=== PATIENT | female | born 1990 | race Two or more races ===

== ENCOUNTER 2023-03-20 16:17 | Outpatient (REF) | payer MEDICAID, SELFPAY ==
[2023-03-20 19:48] LABS: Influenza A PCR NEGATIVE (Negative); Influenza B PCR NEGATIVE (Negative); Resp Syncy Virus RNA Qual PCR NEGATIVE (Negative); SARS COV2 PCR INHOUSE NEGATIVE (Negative)
== END 2023-03-20 16:18 | disposition home or self-care (01) ==
LOC: HO.CHCLNP 16:17
PROVIDERS: Visit Provider Family Medicine
DX: J06.9 Acute upper respiratory infection, unspecified (principal); Z20.822 Contact with and (suspected) exposure to COVID-19
CPT/HCPCS: 0241U

== ENCOUNTER 2023-08-26 11:55 | Outpatient (REF) | payer MEDICAID, SELFPAY ==
[2023-08-26 14:49] LABS: MANUAL DIFF FLAG NO
[2023-08-26 15:16] LABS: Basophils Absolute Auto 0.1 X10*3/uL (0.0-0.2); Basophils Percent Auto 0.8 % (0-2); Eosinophils Absolute Auto 0.4 X10*3/uL (0.0-0.4); Eosinophils Percent Auto 2.9 % (0-4); Hematocrit 35.2 % (37.0-47.0); Imm Gran Abs Auto 0.06 X10*3/uL (0.00-0.03); Imm Gran Pct Auto 0.5 % (0.0-0.4); Lymphocytes Absolute Auto 3.9 X10*3/uL (1.2-4.9); Lymphocytes Percent Auto 33.2 % (20-40); Mean Corpuscular HGB Conc 31.3 g/dl (31.0-35.0); Mean Corpuscular Hemoglobin 22.9 pg (27.0-33.0); Mean Corpuscular Volume 73.2 fL (80.0-98.0); Mean Platelet Volume 10.9 fL (9.4-12.3); Monocytes Absolute Auto 0.7 X10*3/uL (0.1-1.2); Monocytes Percent Auto 5.9 % (2-11); Neutrophils Absolute Auto 6.7 x10*3/uL (2.0-8.3); Neutrophils Percent Auto 56.7 % (45-73); Platelet Count 485 X10*3/uL (160-400); Red Blood Count 4.81 X10*6/uL (4.20-5.50); Red Cell Distribution Width 16.4 % (11.0-16.0); White Blood Count 11.9 X10*3/uL (4.8-10.8)
[2023-08-26 17:57] LABS: Alanine Aminotransferase 14 U/L (0-31); Alkaline Phosphatase 84 U/L (39-117); Anion Gap 12 (12-20); Aspartate Amino Transferase 14 U/L (5-31); Bilirubin Total 0.2 mg/dL (0.0-1.0); Blood Urea Nitrogen 11 mg/dL (9-16); Calcium 9.5 mg/dL (8.4-10.2); Carbon Dioxide 23 mmol/L (22-29); Chloride 105 mmol/L (96-108); Estimated Glomerular Filt Rate > 60; Glucose Random 65 mg/dL (60-115); Potassium 3.7 mmol/L (3.3-5.1); Sodium 136 mmol/L (135-145); Total Protein 7.9 g/dL (6.5-8.0)
[2023-08-27 04:23] LABS: HIV AB/AG Nonreactive (Nonreactive); HIV Num 1 0.07 S/CO (0.00-0.99); ~HepC Num1 0.11 S/CO (0.00-0.79); ~Hepatitis C Antibody Nonreactive (Nonreactive)
== END 2023-08-26 11:56 | disposition home or self-care (01) ==
LOC: HO.CHCLDS 11:55
PROVIDERS: Visit Provider Internal Medicine
DX: Z00.00 Encounter for general adult medical examination without abnormal findings (principal); Z11.4 Encounter for screening for human immunodeficiency virus [HIV]; T78.40XD Allergy, unspecified, subsequent encounter; D50.9 Iron deficiency anemia, unspecified
CPT/HCPCS: 36415; 80053; 84443; 85025; 86803; 87389

== ENCOUNTER 2023-08-28 10:30 | Outpatient (REF) | payer MEDICAID, SELFPAY ==
--- NOTE | ~2023-08-28 | US_ITS ---
EXAMINATION: MM DIAGNOSTIC DIGITAL BREAST TOMOSYNTHESIS, BILATERAL US BREAST LIMITED, BILATERAL MAMMOGRAPHY: CLINICAL INFORMATION: 33-year-old female complaining of bilateral breast tenderness upper outer quadrants of both breasts. Baseline exam. COMPARISON: Mammography: None. Baseline exam. TECHNIQUE: Digital breast tomosynthesis is performed in both the craniocaudal and mediolateral oblique views along with computer-aided detection (CAD). Synthesized 2D images are generated from the tomosynthesis. In addition to standard views, bilateral full-field mediolateral 3-D views were obtained. FINDINGS: The breasts are heterogeneously dense, which may obscure small masses (ACR BI-RADS breast composition Category c). LEFT BREAST: -In the mid lateral aspect of the left breast, 3:00 axis, there is a 5 mm oval mass with a small fatty notch consistent with benign intramammary lymph node. -In the 2:00 axis left breast, posterior one third, there is an additional 5 mm oval lobular mass with a small fatty notch consistent with benign intramammary lymph node. -Otherwise, there are are no suspicious masses, suspicious grouped calcifications, or areas of architectural distortion. No skin or axillary abnormalities. No mammographic abnormality is present in the upper outer quadrant to correlate with pain/tenderness. RIGHT BREAST: -The 9:00 axis of the right breast, middle one third, there is a 5 mm lobular oval mass with small fatty notch consistent with benign intramammary lymph node. -Otherwise, there are no suspicious masses, suspicious grouped calcifications, or areas of architectural distortion. No skin or axillary abnormalities. No mammographic abnormality present in the upper outer quadrant to correlate with pain/tenderness. ULTRASOUND: CLINICAL INFORMATION: As above. COMPARISON: None TECHNIQUE: Targeted sonographic evaluation bilateral breasts upper-outer quadrants was performed using a high frequency linear transducer. Selected archived documentation. FINDINGS: RIGHT BREAST: There is a mixture of fatty and fibroglandular tissue. No suspicious mass is seen. There is no pathologic acoustic shadowing. There is a small normal appearing intramammary lymph node at the 9:00 axis, 4 cm from the nipple, measuring 5 mm. Normal small fatty hilum with normal cortex. LEFT BREAST: There is a mixture of fatty and fibroglandular tissue. No suspicious mass is seen. There is no pathologic acoustic shadowing. No cystic abnormalities. The 2 small normal lymph nodes seen in the lateral left breast are not well seen on ultrasonography. No ultrasonographic abnormality is present in either breast upper outer quadrant to correlate with pain/tenderness. US/US breast BI limited mamm only IMPRESSION: There are no findings suspicious for malignancy. There are benign findings bilaterally. There is no mammographic or ultrasonographic correlate to the regions of breast tenderness, upper outer quadrants. Recommend clinical management. Otherwise, recommend resuming routine annual screening mammography at age 40. OVERALL ASSESSMENT: Mammography: BI-RADS 2 - Benign Findings Ultrasound: BI-RADS 2 - Benign Findings RECOMMENDATION: 1. Patient should be managed based on the clinical impression. This patient's information was entered into a reminder system with a target due date for their next mammogram.
== END 2023-08-28 10:31 | disposition home or self-care (01) ==
LOC: HO.MAMMO 10:30
PROVIDERS: PCP Internal Medicine; Visit Provider Advanced Practice Midwife
DX: N64.4 Mastodynia (principal)
CPT/HCPCS: 76642; 77062; 77066

== ENCOUNTER → 2023-08-28 11:00 | Outpatient (BNV) | payer MEDICAID, SELFPAY | PROVIDERS: PCP Internal Medicine; Visit Provider Radiology Diagnostic Radiology | DX: N64.4 Mastodynia (principal) | CPT/HCPCS: 76642; 77062; 77066 ==

== ENCOUNTER 2024-05-05 10:01 | Outpatient (REF) | payer MEDICAID, SELFPAY ==
[2024-05-05 14:56] LABS: MANUAL DIFF FLAG NO
[2024-05-05 15:01] LABS: Basophils Absolute Auto 0.1 X10*3/uL (0.0-0.2); Basophils Percent Auto 0.9 % (0-2); Eosinophils Absolute Auto 0.2 X10*3/uL (0.0-0.4); Eosinophils Percent Auto 2.5 % (0-4); Hematocrit 37.5 % (37.0-47.0); Hemoglobin 12.1 g/dl (12.0-16.0); Imm Gran Abs Auto 0.03 X10*3/uL (0.00-0.03); Imm Gran Pct Auto 0.4 % (0.0-0.4); Lymphocytes Absolute Auto 2.8 X10*3/uL (1.2-4.9); Lymphocytes Percent Auto 32.5 % (20-40); Mean Corpuscular HGB Conc 32.3 g/dl (31.0-35.0); Mean Corpuscular Hemoglobin 24.4 pg (27.0-33.0); Mean Corpuscular Volume 75.6 fL (80.0-98.0); Mean Platelet Volume 11.1 fL (9.4-12.3); Monocytes Absolute Auto 0.5 X10*3/uL (0.1-1.2); Monocytes Percent Auto 5.8 % (2-11); Neutrophils Percent Auto 57.9 % (45-73); Platelet Count 429 X10*3/uL (160-400); Red Blood Count 4.96 X10*6/uL (4.20-5.50); Red Cell Distribution Width 15.9 % (11.0-16.0); White Blood Count 8.6 X10*3/uL (4.8-10.8)
== END 2024-05-05 10:02 | disposition home or self-care (01) ==
LOC: HO.CHCLDS 10:01
PROVIDERS: Visit Provider Internal Medicine
DX: L70.0 Acne vulgaris (principal); M62.838 Other muscle spasm
CPT/HCPCS: 36415; 85025

== ENCOUNTER 2024-07-04 10:02 | Outpatient (REF) | payer MEDICAID, SELFPAY ==
[2024-07-04 18:37] LABS: CT PCR NOT DETECTED (Not Detect.); NG PCR NOT DETECTED (Not Detect.)
[2024-07-05 08:40] LABS: Syphilis Screen Nonreactive (Nonreactive)
[2024-07-05 09:00] LABS: HBS Num1 2.02 mIU/mL (0-7.99); HBsAGNum1 0.44 S/CO (0.00-0.99); HIV AB/AG Nonreactive (Nonreactive); HIV Num 1 0.05 S/CO (0.00-0.99); Hepatitis B Core Antibody Nonreactive (Nonreactive); Hepatitis B Surface Antigen Negative (Negative); ~Hepatitis B Surface Antibody NONREACTIVE (Nonreactive)
== END 2024-07-04 10:03 | disposition home or self-care (01) ==
LOC: HO.HHCL 10:02
PROVIDERS: Visit Provider Advanced Practice Midwife
DX: Z11.3 Encounter for screening for infections with a predominantly sexual mode of transmission (principal)
CPT/HCPCS: 36415; 86704; 86706; 86780; 87340; 87389; 87491; 87591

== ENCOUNTER 2024-07-22 09:57 | Outpatient (REF) | payer MEDICAID, SELFPAY | END 2024-07-22 09:58 | disposition home or self-care (01) | LOC: HO.CHCLDS 09:57 | PROVIDERS: Visit Provider Advanced Practice Midwife | DX: R30.0 Dysuria (principal); B96.20 Unspecified Escherichia coli [E. coli] as the cause of diseases classified elsewhere | CPT/HCPCS: 87086; 87088; 87186 ==

== ENCOUNTER 2024-08-31 11:58 | Outpatient (REF) | payer MEDICAID, SELFPAY ==
[2024-08-31 14:03] LABS: MANUAL DIFF FLAG NO
[2024-08-31 14:07] LABS: Basophils Absolute Auto 0.1 X10*3/uL (0.0-0.2); Eosinophils Absolute Auto 0.2 X10*3/uL (0.0-0.4); Hematocrit 37.2 % (37.0-47.0); Hemoglobin 11.8 g/dl (12.0-16.0); Imm Gran Abs Auto 0.04 X10*3/uL (0.00-0.03); Imm Gran Pct Auto 0.4 % (0.0-0.4); Lymphocytes Absolute Auto 3.2 X10*3/uL (1.2-4.9); Lymphocytes Percent Auto 33.8 % (20-40); Mean Corpuscular HGB Conc 31.7 g/dl (31.0-35.0); Mean Corpuscular Volume 75.6 fL (80.0-98.0); Mean Platelet Volume 11.3 fL (9.4-12.3); Monocytes Absolute Auto 0.7 X10*3/uL (0.1-1.2); Monocytes Percent Auto 7.2 % (2-11); Neutrophils Absolute Auto 5.3 x10*3/uL (2.0-8.3); Neutrophils Percent Auto 55.6 % (45-73); Platelet Count 467 X10*3/uL (160-400); Red Blood Count 4.92 X10*6/uL (4.20-5.50); White Blood Count 9.6 X10*3/uL (4.8-10.8)
--- OUTSIDE RECORDS SUMMARY | 2024-08-31 14:26 | XMS_ITS | Encounter Summary ---
Author Organization [employer] Address [address] [place] [address] 7 [place] [address] Care Team Providers Care Guide Domestic Tour Name Role Phone Blaise Ordonez MD Primary Care Provider [phone] Reason for Visit * Reason Comments Annual Exam Encounter Details Date Type Department Care Team ([facility] st Contact Info) Description 08/31/2024 10:45 AM EST Office Visit [facility] MED & PEDS [address], [place] [id number] Blaise Ordonez MD [address] [place] [address] Annual physical exam (Primary Dx); Moderate persistent asthma without complication; Vitamin D deficiency; Chronic migraine without aura with status migrainosus, not intractable; Mood disorder (CMS/HCC) Social History Tobacco Use Types Packs/Day Years Used Date Smoking Tobacco: Never Passive Smoke Exposure: Never Smokeless Tobacco: Never Alcohol Use Standard Drinks/Week Comments Never 0 (1 standard drink = 0.6 oz pur e alcohol) Alcohol Answer Date Recorded How often do you have a drink containing alcohol ? 1 08/31/2024 How many drinks containing a lcohol do you have on a typical day when you are drinking? 0 08/31/2024 How often do you have six or more drinks on one occasion? 1 08/31/2024 Depression Answer Date Recorded Patient Health Questionnaire-9 Score 11 08/31/2024 Patient Health Questionnaire-9 Score 11 08/31/2024 Last PHQ-9: Questionnaire Data Not on file 0 08/31/2024 Housing Stability Answer Date Recorded What is your housing situation today? I have urban sing 08/31/[address] you li ve. Do you have problems with any of the following? None of the above 08/31/2024 Food Insecurity Answer Date Recorded Within the past 12 months, y ou worried that your food would run out before you got money to buy more: Never True 08/31/2024 Within the past 12 months,th e food you bought just didn't last and you didn't have enough money to get more: Never True 10/2024 Transportation Answer Date Recorded In the past 12 months, has l ack of transportation kept you from medical appts, meetings, work or from getting things needed for daily living? No 08/31/2024 Utilities Answer Date Recorded In the past 12 months, has t he electric, gas, oil or water company threatened to shut off services in your home? No 08/31/2024 Depression Answer Date Recorded Patient Health Questionnaire-2 Score 1 08/31/2024 Internet Access Answer Date Recorded Internet Access Q1 Yes 08/31/2024 Internet Access Q2 Not on file 08/31/2024 Comments No Sex and Gender Information Value Date Recorded Sex Assigned at Female 04/28/2022 10:35 AM EDT Legal Sex Female 10:35 AM EDT Gender Identity Choose not to disclose 10:35 AM EDT Sexual Orientation Choose not to disclose 2021 10:35 AM EDT documented as of this encounter Last Filed Vital Signs Vital Sign Reading Time Taken Comments Blood Pressure 111/71 08/31/2024 10:51 AM EST Pulse 102 08/31/2024 10:51 AM EST Temperature 36.7 ??C (98 ??F) 08/31/2024 10:51 AM EST Respiratory Rate 20 08/31/2024 10:51 AM EST Oxygen Saturation 98% 08/31/2024 10:51 AM EST Inhaled Oxygen Concentration - - Weight 77.1 kg (170 lb) 08/31/2024 10:51 AM EST Height 149.9 cm (4' 11 ) 08/31/2024 10:51 AM EST Body Mass Index 34.34 08/31/2024 10:51 AM EST documented in this encounter Progress Notes * Blaise Ordonez MD - 08/31/2024 10:45 AM EST Subjective Patient ID: Cynthia Nuno is a 34 y.o. adult who presents for Annual Exam. HPI Patient is here for her annual physical exam. She feels overall stable. Her asthma is controlled. Her concern today is about not feeling safe at home with her partner still living with her and her 3 children at home. She was tearful during the encounter. Denies suicidal ideation or homicidal ideation. Patient Active Problem List Diagnosis Allergic reaction Hospital discharge follow-up Migraine Moderate persistent asthma Vitamin D deficiency Upper respiratory tract infection Procreative management Pain of both breasts LLQ pain Mild persistent asthma with allergic rhinitis Current Outpatient Medications on File Prior to Visit Medication Sig Dispense Refill acetaminophen (Tylenol) 325 MG tablet Take 1 tablet by mouth every 6 (six) hours. albuterol (2.5 MG/3ML) 0.083% nebulizer solution Take 3 mL (2.5 mg) by nebulization every 6 (six) hours if needed for wheezing. 75 mL 0 albuterol (ProAir HFA) 108 (90 Base) MCG/ACT inhaler Inhale 2 puffs every 6 (six) hours. 18 g 0 ARIPiprazole (Abilify) 5 MG tablet take 1 tablet by oral route every day at bed time. B Complex Vitamins (RA B-Complex with B-12) tablet Take 1 tablet by mouth. benzoyl peroxide (PanOxyl Foaming Wash) 10 % external wash Apply topically 2 times daily. 142 g 1 Botox 200 units injection buPROPion XL (Wellbutrin XL) 150 MG 24 hr tablet Take 150 mg by mouth in the morning. busPIRone (Buspar) 15 MG tablet TAKE 1 TABLET BY MOUTH THREE TIMES DAILY 30 MINUTES BEFORE MEALS FOR ANXIETY citalopram (CeleXA) 40 MG tablet Take 40 mg by mouth in the morning. clonazePAM (KlonoPIN) 0.5 MG tablet Take by mouth 2 times daily. EPINEPHrine (Epipen) 0.3 MG/0.3ML injection syringe INJECT 0.3 ML DIRECTED FOR ALLERGIC REACTIONAND THEN CALL 911 2 each 3 ferrous sulfate (Fe Tabs) 325 (65 Fe) MG EC tablet Take 1 tablet (325 mg) by mouth with breakfast, with lunch, and with evening meal. Do not crush, chew, or split. 90 tablet 0 ferrous sulfate 325 (65 Fe) MG EC tablet Take 1 tab orally twice a day 60 tablet 2 montelukast (Singulair) 10 MG tablet TAKE 1 TABLET BY MOUTH DAILY IN THE EVENING Omeprazole 20 MG tablet delayed-release Take 20 mg by mouth in the morning. 14 tablet 0 [] oxyCODONE (Roxicodone) 5 MG immediate release tablet Take 1 tablet (5 mg) by mouth every 6 (six) hours if needed for severe pain for up to 5 days. 15 tablet 0 predniSONE (Deltasone) 20 MG tablet rizatriptan (Maxalt) 10 MG tablet Sodium Fluoride 1.1 % cream [place] teeth for 2 minutes, morning and night. Spit, do not rinse. Do not eat or drink anything for 30 minutes following use. 112 g 3 Symbicort 160-4.5 MCG/ACT inhaler Inhale 2 puffs 2 times daily. tiZANidine (Zanaflex) 2 MG tablet Take 1 tablet (2 mg) by mouth every 6 (six) hours if needed for muscle spasms for up to 10 days. 30 tablet 0 No current facility-administered medications on file prior to visit. Allergies Allergen Reactions Ethanol Anaphylaxis Ibuprofen Hives Quetiapine Other As per patient Seizures, head aches loss of memorie. Shellfish-Derived Products Topiramate Caused itching both hands and feet Review of Systems Constitutional: Negative for appetite change, chills and diaphoresis. Eyes: Negative for photophobia, pain and redness. Respiratory: Negative for cough and choking. Gastrointestinal: Negative for blood in stool and constipation. Musculoskeletal: Negative for back pain, gait problem and joint swelling. Objective BP 111/71 (BP Location: Left arm, Patient Position: Sitting, BP Cuff Size: Adult) Pulse 102 Temp 98 ??F (36.7 ??C) (Oral) Resp 20 Ht 4' 11 (1.499 m) Wt 170 lb (77.1 kg) SpO2 98% BMI 34.34 kg/m?? Physical Exam Constitutional: General: Cynthia is not in acute distress. Appearance: Normal appearance. Cynthia is not ill-appearing, toxic-appearing or diaphoretic. HENT: Head: Normocephalic. Cardiovascular: Rate and Rhythm: Normal rate. Pulmonary: Effort: Pulmonary effort is normal. No respiratory distress. Breath sounds: No stridor. Abdominal: Palpations: Abdomen is soft. Neurological: General: No focal deficit present. Mental Status: Cynhtia is alert. Psychiatric: Mood and Affect: Affect is tearful. Assessment/Plan Diagnoses and all orders for this visit: Annual physical exam Comments: Normal cardiopulmonary exam Patient advised to maintain a healthy and balanced diet. Orders: - XR Wrist 1-2 Views Right; Future Moderate persistent asthma without complication Comments: Stable Follow-up with pulmonology. Vitamin D deficiency Comments: Continue with vitamin D supplementation. Chronic migraine without aura with status migrainosus, not intractable Comments: Follow-up with neurology as scheduled. Mood disorder (CMS/HCC) Comments: [facility] called. Patient will receive emotional support today. Follow-up with the psychiatrist as scheduled. documented in this encounter Miscellaneous Notes * Addendum Note - Blaise Ordonez MD - 08/31/2024 10:45 AM ESTAddended by: BLAISE ORDONEZ on: 08/31/2024 12:03 PM Modules accepted: Orders documented in this encounter Plan of Treatment Upcoming Encounters Date Type Department Care Team (Late st Contact Info) Description 09/14/2024 11:00 AM EDT Office Visit [facility] ADULT D[facility] [address] [place] [address] Reinier Ordonez Scheduled Orders Name Type Priority Associated Diagnoses Orde r Schedule XR Wrist 1-2 Views Right Imaging Routine Annual physical exam Expected: 08/31/2024, Expires: 08/31/2025 documented as of this encounter Procedures Procedure Name Priority Date/Time Associated Diagnosis Comments CBC WITH AUTO DIFFERENTIAL Routine 08/31/2024 11:59 AM EST Mood disorder (CMS/HCC) documented in this encounter Results * (ABNORMAL) CBC auto differential (08/31/2024 11:59 AM EST) White Blood Count 9.6 4.8 - 10.8 X10*3/uL [facility] Red Blood Count 4.92 4.20 - 5.50 X10*6/uL [facility] Hemoglobin 11.8(L) 12.0 - 16.0 g/dl [facility] Hematocrit 37.2 37.0 - 47.0 % [facility] Mean Corpuscular Volume 75.6(L) 80.0 - 98.0 fL [facility] Mean Corpuscular Hemoglobin 24.0(L) 27.0 - 33.0 pg [facility] Mean Corpuscular HGB Conc 31.7 31.0 - 35.0 g/dl [facility] Red Cell Distribution Width 15.0 11.0 - 16.0 % [facility] Platelet Count 467(H) 160 - 400 X10*3/uL [facility] Mean Platelet Volume 11.3 9.4 - 12.3 fL [facility] Neutrophils Percent Auto 55.6 45 - 73 % [facility] Imm Gran Pct Auto 0.4 0.0 - 0.4 % [facility] Lymphocytes Percent Auto 33.8 20 - 40 % [facility] Monocytes Percent Auto 7.2 2 - 11 % [facility] Eosinophils Percent Auto 2.0 0 - 4 % [facility] Basophils Percent Auto 1.0 0 - 2 % [facility] NRBC Pct Auto 0.0 0.0 - 0.2 /100WBC [facility] Neutrophils Absolute Auto 5.3 2.0 - 8.3 x10*3/uL [facility] Imm Gran Abs Auto 0.04(H) 0.00 - 0.03 X10*3/uL [facility] Lymphocytes Absolute Auto 3.2 1.2 - 4.9 X10*3/uL [facility] Monocytes Absolute Auto 0.7 0.1 - 1.2 X10*3/uL [facility] Eosinophils Absolute Auto 0.2 0.0 - 0.4 X10*3/uL [facility] Basophils Absolute Auto 0.1 0.0 - 0.2 X10*3/uL [facility] NRBC Abs Auto 0.000 0.0 - 0.012 X10*3/uL [facility] Blood Venous blood specimen / Unknown 08/31/2024 11:59 AM EST 08/31/2024 1:59 PM EST Blaise Ordonez MD LAB BLOOD ORDERABLES Final Result [facility] [address] [place] [address] [phone] documented in this encounter Visit Diagnoses Diagnosis Annual physical exam- Primary Routine general medical examination at a health care facility Moderate persistent asthma without complication Vitamin D deficiency Chronic migraine without aura with status migrainosus, not intractable Mood disorder (CMS/HCC) Unspecified episodic mood disorder documented in this encounter Additional Health Concerns Assessment Noted Time PHQ-9 Depression Total Score: 11 025 11:29 AM EST documented as of this encounter Care Teams Guide Domestic Tour Relationship Specialty Start Date End Date Blaise Ordonez MD [address] [place] [id number] PCP - General Internal Medicine 01/25/19 Shahab Ricci After School TeacherAutomatic Profile Shaper Operator 07/12/24 documented as of this encounter
--- OUTSIDE RECORDS SUMMARY | 2024-08-31 14:26 | XMS_ITS | Encounter Summary ---
Author Organization [employer] Address [address] [place] [address] Care Team Providers Care Torpedo Worker Name Role Phone Rodney Ordonez MD Primary Care Provider [phone]- [phone] Reason for Visit * Reason Onset Date Comments ER Follow-up 12/29/2023 Encounter Details Date Type Department Care Team ([facility] st Contact Info) Description 12/29/2023 Telephone [facility] MEDICINE [address] [place] [address] Rodney Ordonez MD [address] [place] [address] ER Follow-up Social History Tobacco Use Types Packs/Day Years Used Date Smoking Tobacco: Never Passive Smoke Exposure: Never Smokeless Tobacco: Never Alcohol Use Standard Drinks/Week Comments Never 0 (1 standard drink = 0.6 oz pur e alcohol) Depression Answer Date Recorded Patient Health Questionnaire-9 Score 16 08/26/2023 Patient Health Questionnaire-9 Score 16 08/26/2023 Last PHQ-9: Questionnaire Data Not on file 0 08/26/2023 Housing Stability Answer Date Recorded What is your housing situation today? I have urban bejarano 08/19/[address] you li ve. Do you have problems with any of the following? None of the above 08/19/2023 Food Insecurity Answer Date Recorded Within the past 12 months, y ou worried that your food would run out before you got money to buy more: Never True 08/19/2023 Within the past 12 months,th e food you bought just didn't last and you didn't have enough money to get more: Never True Transportation Answer Date Recorded In the past 12 months, has l ack of transportation kept you from medical appts, meetings, work or from getting things needed for daily living? No 08/19/2023 Utilities Answer Date Recorded In the past 12 months, has t he electric, gas, oil or water company threatened to shut off services in your home? No 08/19/2023 Depression Answer Date Recorded Patient Health Questionnaire-2 Score 4 08/26/2023 Comments No Sex and Gender Information Value Date Recorded Sex Assigned at Female 04/28/2022 10:35 AM EDT Legal Sex Female 10:35 AM EDT Gender Identity Choose not to disclose 10:35 AM EDT Sexual Orientation Choose not to disclose 2021 10:35 AM EDT documented as of this encounter Miscellaneous Notes * Telephone Encounter - Wing Darren RN - 01/05/2024 9:30 AM EDT Tc to pt using [employer] Photo[employer]raving Etcher Apprentice [place], [place] [id number] for ED follow-up. Pt repports feeling better, last home BP was 123/83 on Thursday as BP home cuff is out of batteries. Pt denies any dizziness, chestpain, and blurred vision. Positive for minor headaches that don't bother pt along with some slight neck pain. Advised pt to make sure to go to appt with PCP on 01/06. Pt verbalized understanding and agreement with plan. * Telephone Encounter - Ryan Yañez - 12/29/2023 3:00 PM EDT Patient calling to report ED visit on : Date: 12/27 Hospital: [facility] Seen for: High Blood Pressure , Dizziness and migraine Patient advised will forward to team nurse for follow up documented in this encounter Plan of Treatment Upcoming Encounters Date Type Department Care Team (Late st Contact Info) Description 09/14/2024 11:00 AM EDT Office Visit [facility] ADULT DENTAL [address] [facility] [place] [address] Reinier Ordonez documented as of this encounter Visit Diagnoses Not on filedocumented in this encounter Additional Health Concerns Assessment Noted Time PHQ-9 Depression Total Score: 16 08/26/ 024 10:56 AM EST documented as of this encounter Care Teams Torpedo Worker Relationship Specialty Start Date End Date Rodney Ordonez MD [address] [facility] [place] [address] PCP - General Internal Medicine 01/25/19 Shahab Ricci Captain Waiter/WaitressVp Of Customer Experience Strategy 07/12/24 documented as of this encounter
--- OUTSIDE RECORDS SUMMARY | 2024-08-31 14:26 | XMS_ITS | Encounter Summary ---
Author Organization [employer] Address [address] [facility] 7 [place] [address] Care Team Providers Care Manager Web Name Role Phone Rodney Ordonez MD Primary Care Provider [phone]- [phone] Encounter Details Date Type Department Care Team ([facility] st Contact Info) Description 09/17/2023 Telephone [facility] MEDICINE [address] [place] [address] Rodney Ordonez MD [address] [place] [address] Social History Tobacco Use Types Packs/Day Years [...] encounter Miscellaneous Notes * Telephone Encounter - Idaila Sharma RN - 09/22/2023 5:23 PM EDT TC placed to patient via [employer] General Maintenance Helper x 2 regarding message below. Patient didn't answer. TCplaced to patient without information technology associate line. Patient answered. Explained message below in very basicSpanish, and patient still confused. Asked patient for permission to call back with information technology associate line and patient agreed. TC placed again to patient via [employer] General Maintenance Helper. Explained message above and patient states she does have extremely painful periods and wants to consider hormonal treatment or next steps. Asked for next appointment at [facility] and scheduled for 09/29/23 @ 10:30am with Ramsey Ng. Routing message to Ramsey Ng so she is aware. ----- Message from Alla Ng CNM sent at 09/22/2023 4:32 PM EDT ----- Regarding: pelvic u/s Hi - It looks like Cynthia's pelvic ultrasound came back last month but was never routed to me. Please let her know that there are some changes in her uterus that could be due to a condition called adenomyosis. This is when cells from the lining of the uterus grow into the muscle of the uterus. It can sometimes cause heavy or painful periods. I'm sorry I didn't see this until now. Sometimes we use hormonal treatments to help with periods. If she is interested in this, please schedule appt with me. Thanks! ----- Message ----- From: Alla Ng CNM Sent: 08/04/2023 9:42 AM EDT To: Alla Ng CNM; # * Telephone Encounter - Idalia Sahrma RN - 09/21/2023 3:51 PM EDT Images from the original note were not included. MD Ofe López [facility] Med [facility] Peds Nurses Caller: Unspecified (4 days ago, 11:50 AM) Rizatriptan sent to pt's pharmacy. Regarding the referral to Ophthalmology, Ms Cynthia Nuno can herself call an sprinkler fitter in the area to make her appointment herself, no referral isneeded from the office. TC placed to patient via [employer] General Maintenance Helper regarding above message. Patient states that she didn't package pick up this medication from [email or web address] because she states she is allergic to this medication. Instead, she is taking Nurtec for migraines, which was prescribed by her neurologist. She was informed about the ophthalmology referral not being necessary, and she states she will try to make an appointment with the [facility] at [facility]. Routing to PCP so he is aware. * Telephone Encounter - Kenneth Funes RN - 09/17/2023 3:27 PM EDT Please review below message. pt. Is looking for migraine medication to prescribe on file pharmacy. Also looking for referral for vision center, has blurred vision. Advised to come to walk in center in case of any pain or any new or worsening symptoms. Pt. Verbally agreed and understood. * Telephone Encounter - Yaritza Duarte - 09/17/2023 11:49 AM EDT Tc from pt requesting medication for migraine discussed with PCP on last visit and also a referral for vision. documented in this encounter Plan of Treatment Upcoming Encounters Date Type Department Care Team ([facility] st Contact Info) Description 09/14/2024 11:00 AM EDT Office Visit [facility] ADULT DENTAL [address] [place] [address] Reinier Ordonez documented as of this encounter Visit Diagnoses Not on filedocumented in this encounter Additional Health Concerns Assessment Noted Time PHQ-9 Depression Total Score: 16 08/26/ 024 10:56 AM EST documented as of this encounter Care Teams Manager Web Relationship Specialty Start Date End Date Rodney Ordonez MD [address] [place] [address] PCP - General Internal Medicine 01/25/19 Shahab Ricci Second Facing BasterCertified Legal Investigator 07/12/24 documented as of this encounter
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
--- OUTSIDE RECORDS SUMMARY | 2024-08-31 14:26 | XMS_ITS | Clinical Summary ---
Author Organization [facility] Address [address] [place] [address] Care Team Providers Care Materials Director Name Role Phone Rodney Ordonez MD Primary Care Provider [phone] Surgical History Surgery Date Site/Laterality Comments TUBAL LIGATION 2013 PROCEDURE: HISTORICAL TUBAL LIGATION; COMMENT: has 3 kids CHOLECYSTECTOMY PROCEDURE: HISTORICAL CHOLECYSTECTOMY Medical History Medical History Date Comments Asthma 2004 DX:Asthma Anxiety 2016 DX:Anxiety Migraine 2018 DX:Migraine; COM MENT: botox Allergic rhinitis 06/14/2020 DX:Allergic rh initis Dyspnea on exertion 09/24/2020 DX:Dyspnea o n exertion Family History Medical History Relation Name Comments Asthma Father Other cancer Mother Relation Name Status Comments Brother Alive Father Alive Mother Alive Sister 1 Alive Sister 2 Alive Sister 3 Alive Social History Tobacco Use Types Packs/Day Years Used Date Smoking Tobacco: Never Smokeless Tobacco: Never Alcohol Use Standard Drinks/Week Comments No 0 (1 standard drink = 0.6 oz pur e alcohol) Comments Unknown Sex and Gender Information Value Date Recorded Sex Assigned at Not on file Legal Sex Female 3:09 PM EST Gender Identity Not on file Sexual Orientation Not on file Obstetrics History Plan of Treatment Health Maintenance Due Date Last Done Comments Hepatitis B Vaccines (1 of 3 - 19+ 3-dose series) 2009 Pneumococcal Vaccine: Pediat rics (0 to 5 Years) and At-Risk Patients (6 to 64 Years) (1 of 2 - PCV) 2009 Cervical Cancer Screening: P ap Smear 2011 Depression Screening 06/07/2022 HIV Screening 06/07/2022 Hepatitis C Screening 06/07/2022 Social Influencers of Health Screening 06/07/2022 COVID-19 Vaccine ( - 2023-2 5 season) 2024 Influenza Vaccine (#1) 2024 DTaP,Tdap,and Td Vaccines (2 - Td or Tdap) 09/22/2028 09/22/2018 HIB Vaccines Aged Out No longer eligi ble based on patient's age to complete this topic HPV Vaccines Aged Out No longer eligi ble based on patient's age to complete this topic Hepatitis A Vaccines Aged Out No long er eligible based on patient's age to complete this topic IPV Vaccines Aged Out No longer eligi ble based on patient's age to complete this topic MMR Vaccines Aged Out No longer eligi ble based on patient's age to complete this topic Meningococcal ACWY Vaccine Aged Out N o longer eligible based on patient's age to complete this topic Meningococcal B Vacine Aged Out No lo nger eligible based on patient's age to complete this topic RSV Immunization Patients Un lillian 20 months Aged Out No longer eligible b ased on patient's age to complete this topic Varicella Vaccines Aged Out No longer eligible based on patient's age to complete this topic Care Teams Materials Director Relationship Specialty Start Date End Date Rodney Ordonez MD [address] [place] [address] PCP - General Internal Medicine 05/08/20
--- OUTSIDE RECORDS SUMMARY | 2024-08-31 14:26 | XMS_ITS | Encounter Summary ---
Author Organization [employer] Address [address] [place] [address] 7 [place] [address] Care Team Providers Care Ceramics Technician Name Role Phone Rodney Ordonez MD Primary Care Provider [phone] Encounter Details Date Type Department Care Team ([facility] st Contact Info) Description 09/07/2023 Orders Only [facility] MED & PEDS [address], [place] [id number] Rodney Ordonez MD [address] [place] [address] H. pylori infection (Primary Dx) Social History Tobacco Use Types Packs/Day Years [...] AM EDT documented as of this encounter Plan of Treatment Upcoming Encounters Date Type Department Care Team ([facility] st Contact Info) Description 09/14/2024 11:00 AM EDT Office Visit [facility] ADULT DENTAL [address] [place] [address] Reinier Ordonez documented as of this encounter Visit Diagnoses Diagnosis H. pylori infection- Primary Helicobacter pylori (H. pylori) documented in this encounter Additional Health Concerns Assessment Noted Time PHQ-9 Depression Total Score: 16 024 10:56 AM EST documented as of this encounter Care Teams Ceramics Technician Relationship Specialty Start Date End Date Rodney Ordonez MD [address] [place] [address] PCP - General Internal Medicine 01/25/19 Shahab Ricci Wire InsulatorFrench Binding Folder 07/12/24 documented as of this encounter
--- OUTSIDE RECORDS SUMMARY | 2024-08-31 14:26 | XMS_ITS | Encounter Summary ---
Author Organization [employer] Address [address] [place] [address] Care Team Providers Care Pressing Machine Tender Name Role Phone Rodney Ordonez MD Primary Care Provider [phone] Reason for Visit * Reason Onset Date Comments Referral 09/03/2023 Encounter Details Date Type Department Care Team (Late st Contact Info) Description 09/03/2023 Telephone [facility] MEDICINE [address] [place] [address] Rodney Ordonez MD [address] [place] [address] Referral Social History Tobacco Use Types Packs/Day Years [...] encounter Miscellaneous Notes * Telephone Encounter - Camila Marcus RN - 09/04/2023 11:25 AM EST Noted. Pt to discuss further during next appt. * Telephone Encounter - Camila Marcus RN - 09/04/2023 10:04 AM EST Please review message below and advise if nutrition referral can be made for pt anemia. Pt is scheduled on the with PCP. * Telephone Encounter - Marcos Verdugo - 09/03/2023 9:15 AM EST Tc from Shahab working with [facility] calling in regards to pt requesting a referral for monorail hooker. Ptwas advised after ED visit 08/31/23 from [facility] to be seen with monorail hooker due to being diagnosed with Anemia. Please contact pt at [phone] If any questions you can contact Shahab at [phone]. documented in this encounter Plan of Treatment Upcoming Encounters Date Type Department Care Team (Late st Contact Info) Description 09/14/2024 11:00 AM EDT Office Visit [facility] ADULT DENTAL [address] [place] [address] Reinier Ordonez documented as of this encounter Visit Diagnoses Not on filedocumented in this encounter Additional Health Concerns Assessment Noted Time PHQ-9 Depression Total Score: 16 08/26/ 024 10:56 AM EST documented as of this encounter Care Teams Pressing Machine Tender Relationship Specialty Start Date End Date Rodney Ordonez MD [address] [place] [address] PCP - General Internal Medicine 01/25/19 Shahab Ricci Tapper HandInteractive Producer 07/12/24 documented as of this encounter
--- OUTSIDE RECORDS SUMMARY | 2024-08-31 14:26 | XMS_ITS | Encounter Summary ---
Author Organization [employer] Address [address] [place] [address] [place] [address] Care Team Providers Care Apartment Community Assistant Manager Name Role Phone Rodney Ordonez MD Primary Care Provider [phone] Reason for Visit * Reason Onset Date Comments Nurse Triage 04/05/2024 Encounter Details Date Type Department Care Team ([facility] st Contact Info) Description 04/05/2024 Telephone [facility] MED & PEDS [address] [place] [address] Rodney Ordonez MD [address] [place] [address] Nurse Triage Social History Tobacco Use Types Packs/Day Years [...] encounter Miscellaneous Notes * Telephone Encounter - Dorothy Rosales RN - 04/05/2024 12:11 PM EDT Triage call with [facility] Vending Mechanic [place] [id number] Pt reports a development of acne over face, cheeks, chest and back. Pt has not had this before. Pt reports itchiness that is severe at times. Pt reports white heads, black heads and red areas and they are big pimples . Pt is not applying anything to the area. Pt is texted handout regarding home care for mild acne in congolese and confirms receiving this. ASK apt with Dr. Ordonez 04/15/24 @ 345pm. Pt agrees with disposition. Insurance is verified as active prior to booking. Protocol Used: Acne (Pediatric) Protocol-Based Disposition: See in Office or Video Visit within 2 Weeks Video visit not offered Positive Triage Question: * Many chronic red lumps * All higher-acuity triage questions were negative Care Advice Discussed: * Reassurance and Education - Mild Acne (Whiteheads and Blackheads) * Benzoyl Peroxide Gel (OTC) * Antibiotic for Red Bumps * Washing the Face * Treating Red Lumps that are Painful * Pimples: How to Open Safely * Avoid Picking or Squeezing Acne * Expected Course * Reasons To Call Back - With treatment, the acne has not improved after 2 months - It looks infected - Large, red, tender bumps occur - Your teen becomes worse Acne (Romansh) handout sent to [phone] * Telephone Encounter - Kassy Smiley - 04/05/2024 11:28 AM EDT Symptom: Acne - Caller Reports Outcome: Schedule an appointment to be seen within 3 days Reason: Caller denied all higher acuity questions The caller accepted this outcome. documented in this encounter Plan of Treatment Upcoming Encounters Date Type Department Care Team (Late st Contact Info) Description 09/14/2024 11:00 AM EDT Office Visit [facility] ADULT DENTAL [address] [place] [address] Reinier Ordonez documented as of this encounter Visit Diagnoses Not on filedocumented in this encounter Additional Health Concerns Assessment Noted Time PHQ-9 Depression Total Score: 16 08/26/ 024 10:56 AM EST documented as of this encounter Care Teams Apartment Community Assistant Manager Relationship Specialty Start Date End Date Rodney Ordonez MD [address] [place] [address] PCP - General Internal Medicine 01/25/19 Shahab Ricci Director Of First ImpressionsGate Attendant 07/12/24 documented as of this encounter
--- OUTSIDE RECORDS SUMMARY | 2024-08-31 14:26 | XMS_ITS | Encounter Summary ---
Author Organization [employer] Address [address] [place] [address] 7 [place] [address] Care Team Providers Care Manifold Builder Name Role Phone Rodney Ordonez MD Primary Care Provider [phone] Encounter Details Date Type Department Care Team (Latest Contact Info) Description 08/31/2024 Travel Social History Tobacco Use Types Packs/Day Years [...] is your housing situation today? I have urbanchelo bejarano 08/31/[address] you li [...] Upcoming Encounters Date Type Department Care Team ([facility] st Contact Info) Description 09/14/2024 11:00 AM EDT Office Visit [facility] ADULT DENTAL [address] [place] [address] Reinier Ordonez documented as of this encounter Visit Diagnoses Not on filedocumented in this encounter Additional Health Concerns Assessment Noted Time PHQ-9 Depression Total Score: 11 025 11:29 AM EST documented as of this encounter Care Teams Manifold Builder Relationship Specialty Start Date End Date Rodney Ordonez MD [address] [place] [address] PCP - General Internal Medicine 01/25/19 Shahab Ricci Paper SheeterPsychology Instructor 07/12/24 documented as of this encounter
--- OUTSIDE RECORDS SUMMARY | 2024-08-31 14:26 | XMS_ITS | Encounter Summary ---
Author Organization [employer] Address [address] [facility] [address] [place] [address] Care Team Providers Care Graphic Illustrator Name Role Phone Rodney Ordonez MD Primary Care Provider [phone] Encounter Details Date Type Department Care Team ([facility] st Contact Info) Description 05/16/[address] [facility] CHC MED & PEDS [address] [place], [place] [phone] ProviderJud MD Social History Tobacco Use Types Packs/Day Years [...] Upcoming Encounters Date Type Department Care Team ([facility] st Contact Info) Description 09/14/2024 11:00 AM EDT Office Visit [facility] ADULT DENTAL [address] [place] [address] Reinier Ordonez documented as of this encounter Procedures Procedure Name Priority Date/Time Associated Diagnosis Comments HM COLONOSCOPY Routine 05/16/2024 4:17 PM EST documented in this encounter Results * Hm Colonoscopy (05/16/2024 4:17 PM EST) us Historical Provider HEALTH MAINTENANCE Final Result documented in this encounter Visit Diagnoses Not on filedocumented in this encounter Additional Health Concerns Assessment Noted Time PHQ-9 Depression Total Score: 16 024 10:56 AM EST documented as of this encounter Care Teams Graphic Illustrator Relationship Specialty Start Date End Date Rodney Ordonez MD [address] [place] [address] PCP - General Internal Medicine 01/25/19 Shahab Ricci Fitting Room AttendantHuman Resources Associate 07/12/24 documented as of this encounter
--- OUTSIDE RECORDS SUMMARY | 2024-08-31 14:26 | XMS_ITS | Encounter Summary ---
Author Organization [employer] Address [address] [place] [address] [place] [address] Care Team Providers Care Director Of Supply Chain Name Role Phone Rodney Ordonez MD Primary Care Provider [phone]- [phone] Encounter Details Date Type Department Care Team (Late Contact Info) Description 09/22/2022 Abstract [facility] CHC MED & PEDS [address] [place], [place] [phone] Rodney Ordonez MD [address] [place], [place] [phone] Social History Tobacco Use Types Packs/Day Years Used Date Smoking Tobacco: Never Passive Smoke Exposure: Never Smokeless Tobacco: Never Alcohol Use Standard Drinks/Week Comments Never 0 (1 standard drink = 0.6 oz pur e alcohol) Depression Answer Date Recorded Patient Health Questionnaire-9 Score 17 07/28/2022 Depression Answer Date Recorded Patient Health Questionnaire-2 Score 5 07/28/2022 Comments No Sex and Gender Information Value Date Recorded Sex Assigned at Female 04/28/2022 10:35 AM EDT Legal Sex Female 10:35 AM EDT Gender Identity Choose not to disclose 10:35 AM EDT Sexual Orientation Choose not to disclose 2021 10:35 AM EDT COVID-19 Exposure Response Date Recorded In the last 10 days, have yo u been in contact with someone who was confirmed or suspected to have Coronavirus/COVID-19? No / Unsure 09/19/2022 9:25 AM EDT documented as of this encounter Plan of Treatment Upcoming Encounters Date Type Department Care Team (Late st Contact Info) Description 09/14/2024 11:00 AM EDT Office Visit [facility] ADULT DENTAL [address] [place] [address] Reinier Ordonez documented as of this encounter Visit Diagnoses Not on filedocumented in this encounter Additional Health Concerns Assessment Noted Time PHQ-9 Depression Total Score: 17 023 11:37 AM EST documented as of this encounter Care Teams Director Of Supply Chain Relationship Specialty Start Date End Date Rodney Ordonez MD [address] [place] [address] PCP - General Internal Medicine 01/25/19 Shahab Ricci Supervisor Paint Roller CoversHome Health Care Worker 07/12/24 documented as of this encounter
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
--- OUTSIDE RECORDS SUMMARY | 2024-08-31 14:26 | XMS_ITS | Encounter Summary ---
Author Organization [employer] Address [address] [place] [address] [place] [address] Care Team Providers Care Account Resolution Specialist Name Role Phone Rodney Ordonez MD Primary Care Provider [phone] Reason for Visit * Reason Comments Pre-visit Planning SDOH will need to be completed in office. Encounter Details Date Type Department Care Team ([facility] Contact Info) Description 08/24/2024 Patient Outreach [facility] [address] [place] [address] Rodney Ordonez MD [address] [place] [address] Pre-visit Planning (SDOH will need to be completed in office. ) Social History Tobacco Use Types Packs/Day Years [...] AM EDT documented as of this encounter Progress Notes * Elvi Bullock - 08/24/2024 4:38 PM EST LAURE Coronel placed successful outbound call to patient for pre-visit planning. Patient name and confirmed. Patient confirms appt date and time, and has transportation arrangements. Biggest concern for appointment at this time is no concerns. Appropriate screenings completed in anticipation ofappointment. documented in this encounter Plan of Treatment Upcoming Encounters Date Type Department Care Team ([facility] st Contact Info) Description 09/14/2024 11:00 AM EDT Office Visit [facility] ADULT DENTAL [address] [place] [address] Reinier Ordonez documented as of this encounter Visit Diagnoses Not on filedocumented in this encounter Additional Health Concerns Assessment Noted Time PHQ-9 Depression Total Score: 16 024 10:56 AM EST documented as of this encounter Care Teams Account Resolution Specialist Relationship Specialty Start Date End Date Rodney Ordonez MD [address] [place] [address] PCP - General Internal Medicine 01/25/19 Shahab Ricci Educational Guidance CounselorMaterials Handling Coordinator 07/12/24 documented as of this encounter
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
--- OUTSIDE RECORDS SUMMARY | 2024-08-31 14:26 | XMS_ITS | Encounter Summary ---
Author Organization [email or web address] Address [address] [place] [address] 7 [place] [address] Care Team Providers Care Asic Design Engineer Name Role Phone Rodney Ordonez MD Primary Care Provider [phone] Encounter Details Date Type Department Care Team ([facility] st Contact Info) Description 06/10/2024 Orders Only [facility] MED & PEDS [address] [place], [place] [phone] Rodney Ordonez MD [address] [place] [address] Neck muscle spasm (Primary Dx) Social History Tobacco Use Types [...] housing situation today? I have urbanchelo bejarano 08/19/[address] you [...] 09/14/2024 11:00 AM EDT Office Visit [facility] ADULT [facility] [address] [place] [address] Reinier Ordonez documented as of this encounter Visit Diagnoses Diagnosis Neck muscle spasm- Primary documented in this encounter Additional Health Concerns Assessment Noted Time PHQ-9 Depression Total Score: 16 024 10:56 AM EST documented as of this encounter Care Teams Asic Design Engineer Relationship Specialty Start Date End Date Rodney Ordonez MD [address] [place] [address] PCP - General Internal Medicine 01/25/19 Shahab Ricci Ferryboat Ticket TakerCivil Engineer Land Development 07/12/24 documented as of this encounter
--- OUTSIDE RECORDS SUMMARY | 2024-08-31 14:26 | XMS_ITS | Encounter Summary ---
Author Organization [employer] Address [address] [place] [address] 7 [place] [address] Care Team Providers Care Geoint Analyst Name Role Phone Rodney Ordonez MD Primary Care Provider [phone] Encounter Details Date Type Department Care Team (Latest Contact Info) Description 08/25/2024 Travel Social History Tobacco Use Types Packs/Day [...] your housing situation today? I have urban bejarnao 08/19/[address] you li [...] 11:00 AM EDT Office Visit [facility] ADULT DENTAL [address] [place] [address] Reinier Ordonez documented as of this encounter Visit Diagnoses Not on filedocumented in this encounter Additional Health Concerns Assessment Noted Time PHQ-9 Depression Total Score: 16 024 10:56 AM EST documented as of this encounter Care Teams Geoint Analyst Relationship Specialty Start Date End Date Rodney Ordonez MD [address] [place] [address] PCP - General Internal Medicine 01/25/19 Shahab Ricci Welder RepairCarousel Operator 07/12/24 documented as of this encounter
--- OUTSIDE RECORDS SUMMARY | 2024-08-31 14:26 | XMS_ITS | Clinical Summary ---
Author Organization [facility] Address [address] [place] [address] Care Team Providers Care Splitter Operator Name Role Phone Zhane Luna NATIONAL PARK TOUR GUIDE Primary Care Provider Source Comments PLEASE NOTE, if this patient is a minor, it may be UNLAWFUL to discuss sensitive information that is contained in these records (such as FAMILY PLANNING, MENTAL HEALTH or SUBSTANCE ABUSE) with the minor patient's parent or other person without the patient's specific authorization.[facility] Allergies Active Allergy Reactions Criticality Noted Date Comments Quetiapine Other (See Comments) High 09/13/2018 As per patient Seizures, head aches loss of memorie. Topiramate 03/02/2018 Caused itching both hands and feet Medications fluticasone (FLONASE) 50 mcg/actuation nasal sprayIndications: Mild persistent asthma with allergic rhinitis Place 1 [place] into the nostril(s) once daily. 16 g 2 6 Active montelukast (SINGULAIR) 10 mg tabletIndications :Mild persistent asthma without complication Take 1 Tab by mouth nightly at bedtime. 30 Tab 5 6 Active budesonide-formot madelyn (SYMBICORT) 160-4.5 mcg/actuation inhalerIndication s:Mild persistent asthma without complication Inhale 2 Puffs into the lungs 2 (two) times daily 1 Inhaler 3 7 Active albuterol sulfate 90 mcg/actuation inhalerIndication s:Mild persistent asthma without complication Inhale 2 Puffs into the lungs every 4 (four) hours as needed for shortness of breath or wheezing 8 Inhaler 2 7 Active lisdexamfetamine (VYVANSE) 60 mg capsuleIndication s:ADHD, adult residual type Take 1 Cap by mouth every morning 0 8 Active acetaminophen (TYLENOL) 500 mg tabletIndications :Hip pain, bilateral Take 1 Tab by mouth every 6 (six) hours as needed for pain 90 Tab 3 8 Active meclizine (ANTIVERT) 25 mg tabletIndications :Vertigo Take 1 Tab by mouth once as needed for dizziness for up to 1 dose 30 Tab 3 8 Active buPROPion HCl (WELLBUTRIN XL) 300 mg 24 hr tabletIndications :Anxiety and depression TK 1 T PO D QAM 1 9 Active clonazePAM (KLONOPIN) 0.5 mg tabletIndications :Primary insomnia TK 1 T PO BID 0 8 Active zolpidem (AMBIEN) 10 mg tabletIndications :Primary insomnia TK 1 T PO HS 1 9 Active venlafaxine (EFFEXOR-XR) 75 mg 24 hr capsuleIndication s:Chronic migraine Take 1 Cap by mouth once daily with breakfast 30 Cap 1 9 Active naproxen sodium (ALEVE) 220 mg tabletIndications :Dysmenorrhea,Per sistent headaches Take 1 Tab by mouth 2 (two) times daily with a meal Take twice a day with food 1 day prior to period and During period 30 Tab 3 9 Active simethicone (MYLICON) 80 mg chewable tabletIndications :Gastric pain Place 1 Tab into mouth, chew and swallow every 6 (six) hours as needed for flatulence 60 Tab 5 9 Active Active Problems Problem Noted Date Diagnosed Date Mild persistent asthma with allergic rhinitis Overview (11/26/2015): As per [facility] records Immune to rubella 11/26/2015 Overview (11/26/2015): As Per labs done in [place] 09/24/13 Immunizations Name Administration Dates Next Due Flu, Preservative Free 06/07/2018,06/03/2017 Hep B, Adult/Adol (ENERGIX/RECOMBIVAX) 6,04/28/2016 INFLUENZA, SEASONAL, INJECTABLE 04/03/2016 PNEUMOCOCCAL POLYSACCHARIDE PPV23 04/14/2016 TDAP 06/07/2018 Family History Medical History Relation Name Comments Hypertension Father Hypertension Mother Relation Name Status Comments Father Alive Mother Alive Social History Tobacco Use Types Packs/Day Years Used Date Smoking Tobacco: Never Smokeless Tobacco: Never Alcohol Use Standard Drinks/Week Comments No 0 (1 standard drink = 0.6 oz pur e alcohol) Social Connections Answer Date Recorded Social Connections and Isolation 0 02/20/2019 Financial Resource Strain Answer Date R ecorded Financial Resource Strain 0 2018 Stress Answer Date Recorded Stress 0 02/20/2019 Physical Activity Answer Date Recorded Physical Activity 0 02/20/2019 Food Insecurity Answer Date Recorded Food 0 02/20/2019 Transportation Needs Answer Date Record ed Transportation 0 02/20/2019 Housing Stability Answer Date Recorded Housing 0 02/20/2019 Safety and Environment Answer Date Jairo rded Safety 0 02/20/2019 Utilities Answer Date Recorded Utilities 0 02/20/2019 Employment Answer Date Recorded Employment 0 02/20/2019 Comments No Sex and Gender Information Value Date Recorded Sex Assigned at Female 04/06/2017 8:08 PM PDT Legal Sex Female 11:31 AM PDT Gender Identity Female 04/06/2017 8:08 PM PDT Sexual Orientation Straight 04/06/2017 8: 08 PM PDT Last Filed Vital Signs Vital Sign Reading Time Taken Comments Blood Pressure 110/70 11/03/2018 1:32 PM EDT Pulse 96 11/03/2018 1:32 PM EDT Temperature 37 ??C (98.6 ??F) 11/03/2018 1:32 PM EDT Respiratory Rate 16 11/03/2018 1:32 PM EDT Oxygen Saturation 97% 10/13/2018 2:55 PM EDT Inhaled Oxygen Concentration - - Weight 70.3 kg (155 lb) 11/03/2018 1:32 PM EDT Height 150.8 cm (4' 11.37 ) 06/07/2018 9:[address] Body Mass Index 30.92 06/07/2018 9:41 AM EST Plan of Treatment Not on file Insurance [employer] [place] Care Teams Splitter Operator Relationship Specialty Start Date End Date Zhane Luna FNP [address] [place] [address] PCP - General Family Medicine, INSTRUMENT ASSEMBLER 11/21/15
--- OUTSIDE RECORDS SUMMARY | 2024-08-31 14:26 | XMS_ITS | Encounter Summary ---
Author Organization [employer] Address [address] [place] [address] [place] [address] Care Team Providers Care Promotor Group Ticket Sales Name Role Phone Rodney Ordonez MD Primary Care Provider [phone] Reason for Referral * Consultation (Routine) - Closed Specialty Diagnoses / Procedures Referred By Contac t Referred To Contact Neurology Diagnoses Chronic migraine without aura with status migrainosus, not intractable Rodney Ordonez MD [address] [place] [address] Phone: tel: fax: Salvador John MD [address] [place] [address] Phone: tel: fax: Referral ID Status Reason Start Date Expiration Date V isits Requested Visits Authorized [id number] Closed Specialty Services Required 02/17/2024 02/16/2025 1 1 Encounter Details Date Type Department Care Team (Late st Contact Info) Description 02/17/2024 Orders Only [facility] [address] [place], [place] [phone] Rodney Ordonez MD [address] [place], [place] [phone] Chronic migraine without aura with status migrainosus, not intractable (Primary Dx) Social History Tobacco Use Types [...] [facility] ADULT [facility] [address] [place] [address] Reinier Ordonez Scheduled Referrals Name Type Priority Associated Diagnoses Orde r Schedule Referral to Neurology Outpatient Referral Routine Chronic migraine without aura with status migrainosus, not intractable Expected: 02/17/2024 (Approximate), Expires: 02/16/2025 documented as of this encounter Visit Diagnoses Diagnosis Chronic migraine without aura with status migrainosus, not intractable- Primary documented in this encounter Additional Health Concerns Assessment Noted Time PHQ-9 Depression Total Score: 16 024 10:56 AM EST documented as of this encounter Care Teams Promotor Group Ticket Sales Relationship Specialty Start Date End Date Rodney Ordonez MD [address] [place] [address] PCP - General Internal Medicine 01/25/[address] ClerkPicc Nurse 07/12/24 documented as of this encounter
== END 2024-08-31 11:59 | disposition home or self-care (01) ==
LOC: HO.CHCLDS 11:58
PROVIDERS: Visit Provider Internal Medicine
DX: F39 Unspecified mood [affective] disorder (principal)
CPT/HCPCS: 36415; 85025

== ENCOUNTER 2025-03-02 15:07 | Outpatient (REF) | payer MEDICAID, SELFPAY ==
--- OUTSIDE RECORDS SUMMARY | 2025-03-02 14:15 | XMS_ITS | Encounter Summary ---
Author Organization [employer] Address [address] [place] [address] [address] [place] [address] Care Team Providers Care Real Estate Broker Name Role Phone Rodney Ordonez MD Primary Care Provider [phone] Encounter Details Date Type Department Care Team ([facility] st Contact Info) Description 03/02/2025 2:15 PM EDT Office Visit [facility] [address] [place] [address] Jada Douglass, LAW REPORTER [address] [place] [address] Fever, unspecified fever cause (Primary Dx); Chronic sinusitis, unspecified location; Night sweats; Fatigue, unspecified type Social History Tobacco Use Types Packs/Day Years [...] Answer Date Recorded Patient Health Questionnaire-2 Score 2 09/01/2024 Internet Access Answer Date Recorded Internet Access [...] Sign Reading Time Taken Comments Blood Pressure 120/78 03/02/2025 2:32 PM EDT Pulse 102 03/02/2025 2:32 PM EDT Temperature 37.5 C (99.5 F) 03/02/2025 2:32 PM EDT Respiratory Rate 16 03/02/2025 2:32 PM EDT Oxygen Saturation 99% 03/02/2025 2:32 PM EDT Inhaled Oxygen Concentration - - Weight 78 kg (172 lb) 03/02/2025 2:32 PM EDT Height 149.9 cm (4' 11 ) 03/02/2025 2:32 PM EDT Body Mass Index 34.74 03/02/2025 2:32 PM EDT documented in this encounter Progress Notes * Jada Douglass CNP - 03/02/2025 2:15 PM EDT Cynthia Nuno is a 34 y.o. adult who presents for a acute visit. HPI Cynthia Nuno, 34-year-old female - Experiencing fevers on and off for about a week, along with feeling tired and dizzy and sore throat. - Reports night sweats and congestion, denies CP, SOB. 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 Takes Benadryl for allergies, usually at night, and additional doses if needed during the day -reports she has chronic sinusitis, she uses flonase and tylenol for relief. - Blurry vision, associated with migraines, Suffers from migraines with aura, affecting vision reports she gets botox weekly for mgmt of sx. Problem List[1] Allergies[2] Review of Systems see HPI Vitals: 03/02/25 1432 BP: 120/78 BP Location: Left arm Patient Position: Sitting BP Cuff Size: Adult Pulse: 102 Resp: 16 Temp: 99.5 ??F (37.5 ??C) TempSrc: Oral SpO2: 99% Weight: 172 lb (78 kg) Height: 4' 11 (1.499 m) Physical Exam Vitals reviewed. Constitutional: General: Cynthia is not in acute distress. Appearance: Normal appearance. Cynthia is not ill-appearing, toxic-appearing or diaphoretic. HENT: Head: Normocephalic and atraumatic. Right Ear: Tympanic membrane normal. Left Ear: Tympanic membrane normal. Nose: Right Sinus: Maxillary sinus tenderness and frontal sinus tenderness present. Left Sinus: Maxillary sinus tenderness and frontal sinus tenderness present. Mouth/Throat: Mouth: Mucous membranes are moist. Pharynx: No oropharyngeal exudate or posterior oropharyngeal erythema. Cardiovascular: Rate and Rhythm: Normal rate and regular rhythm. Pulses: Normal pulses. Heart sounds: Normal heart sounds. No murmur heard. No friction rub. No gallop. Pulmonary: Effort: Pulmonary effort is normal. No respiratory distress. Breath sounds: Normal breath sounds. No stridor. No wheezing, rhonchi or rales. Chest: Chest wall: No tenderness. Musculoskeletal: Cervical back: No tenderness. Right lower leg: No edema. Left lower leg: No edema. Lymphadenopathy: Cervical: No cervical adenopathy. Neurological: General: No focal deficit present. Mental Status: Cynthia is alert and oriented to person, place, and time. Mental status is at baseline. Psychiatric: Mood and Affect: Mood normal. Behavior: Behavior normal. Thought Content: Thought content normal. Judgment: Judgment normal. Problem List Items Addressed This Visit None Visit Diagnoses Fever, unspecified fever cause - Primary Relevant Medications acetaminophen (Tylenol) 325 MG tablet Other Relevant Orders Influenza A (ID NOW Rapid Molecular) (Completed) Influenza B (ID NOW Rapid Molecular) (Completed) POCT , urine manually resulted (Completed) POCT COVID-19 Ag [facility] ID NOW (Completed) POCT ID NOW Rapid Strep A manually resulted (Completed) CBC auto differential Basic Metabolic Panel TSH W/Reflex to FT4 Iron And Total Iron Binding Capacity Vitamin D, 25-Hydroxy, Total, Immunoassay Ferritin T-SPOT??.TB Night sweats Relevant Orders T-SPOT??.TB Fatigue, unspecified type Relevant Orders CBC auto differential Basic Metabolic Panel TSH W/Reflex to FT4 Iron And Total Iron Binding Capacity Vitamin D, 25-Hydroxy, Total, Immunoassay Ferritin T-SPOT??.TB Chronic sinusitis, unspecified location Relevant Medications cetirizine (ZyrTEC) 10 MG tablet Banophen 25 MG tablet FEXOFENADINE HCL PO fluticasone (Flonase Allergy Relief) 50 MCG/ACT nasal spray fluticasone (Flonase) 50 MCG/ACT nasal spray acetaminophen (Tylenol) 325 MG tablet diphenhydrAMINE (Benadryl Allergy) 25 MG capsule Assessment - Covid/Flu/Strep neg -Urine hcg requested by pt also neg -Upper respiratory viral infection - Sinusitis Plan - Continue to use Flonase nasal spray for congestion management. Continue antihistamine use as prescribed. - Maintain adequate hydration, rest, and treat symptoms as a viral upper respiratory infection [id number] medications as needed. - Undergo laboratory testing today to evaluate thyroid function and screen for anemia d/t pt ongoing fatigue. - Monitor symptoms; if condition worsens over the next couple of weeks, return for further evaluation. - Laboratory results will be reviewed; if abnormal, patient will be contacted, otherwise no follow-up communication will occur. - Medications were refilled; monitor response to current regimen over the next couple of weeks. Current Medications[3] [1] Patient Active Problem List Diagnosis Allergic reaction Hospital discharge follow-up Migraine Moderate persistent asthma Vitamin D deficiency Upper respiratory tract infection Procreative management Pain of both breasts LLQ pain Mild persistent asthma with allergic rhinitis Mood disorder (CMS/HCC) Moderate major depression (CMS/HCC) JS (generalized anxiety disorder) Class 1 obesity [2] Allergies Allergen Reactions Ethanol Anaphylaxis Ibuprofen Hives Quetiapine Other As per patient Seizures, head aches loss of memorie. Other Rizatriptan Itchy throat Shellfish Allergy Shellfish-Derived Products Sumatriptan Topiramate Caused itching both hands and feet [3] Current Outpatient Medications: Banophen 25 MG tablet, take 3 tablets by mouth every night at bedtime, Disp: , Rfl: cetirizine (ZyrTEC) 10 MG tablet, Take 1 tablet by mouth in the morning., Disp: , Rfl: cholecalciferol (Vitamin D-3) 1.25 MG (78709 UT) capsule, Take 1 capsule by mouth every 7 (seven) days., Disp: , Rfl: clarithromycin (Biaxin) 250 MG tablet, Take 250 mg by mouth., Disp: , Rfl: diazePAM (Valium) 5 MG tablet, TAKE 1 TABLET BY MOUTH THREE TIMES DAILY FOR 5 DAYS NEEDED FOR MODERATE PAIN, Disp: , Rfl: docusate sodium (Colace) 100 MG capsule, Take 1 capsule by mouth 2 times daily., Disp: , Rfl: famotidine (Pepcid) 20 MG tablet, Take 1 tablet by mouth Once per day., Disp: , Rfl: FEXOFENADINE HCL PO, Take by mouth., Disp: , Rfl: fluticasone (Flonase Allergy Relief) 50 MCG/ACT nasal spray, Administer 1-2 sprays into affected nostril(s) at bed time., Disp: , Rfl: fluticasone (Flonase) 50 MCG/ACT nasal spray, Administer into affected nostril(s)., Disp: , Rfl: ibuprofen 600 MG tablet, Take 1 tablet by mouth every 12 (twelve) hours., Disp: , Rfl: ibuprofen 800 MG tablet, take 1 tablet once a day as needed for migraine ( do not exceed 3 tabs in a week ), Disp: , Rfl: ipratropium-albuterol (Duo-Neb) 0.5-2.5 mg/3 mL nebulizer solution, Inhale 3 mL every 6 (six) hours., Disp: , Rfl: lidocaine (Xylocaine) 5 % ointment, APPLY TOPICALLY TO THE AFFECTED AREA THREE TIMES DAILY FOR 10 DAYS, Disp: , Rfl: Voltaren 1 % gel, Apply topically., Disp: , Rfl: acetaminophen (Tylenol) 325 MG tablet, Take 1 tablet (325 mg) by mouth every 6 (six) hours., Disp: 30 tablet, Rfl: 0 albuterol (2.5 MG/3ML) 0.083% nebulizer solution, Take 3 mL (2.5 mg) by nebulization every 6 (six) hours if needed for wheezing., Disp: 75 mL, Rfl: 0 albuterol (ProAir HFA) 108 (90 Base) MCG/ACT inhaler, Inhale 2 puffs every 6 (six) hours., Disp: 18g, Rfl: 0 ARIPiprazole (Abilify) 5 MG tablet, take 1 tablet by oral route every day at bed time., Disp: , Rfl: B Complex Vitamins (RA B-Complex with B-12) tablet, Take 1 tablet by mouth., Disp: , Rfl: benzoyl peroxide (PanOxyl Foaming Wash) 10 % external wash, Apply topically 2 times daily., Disp: 142 g, Rfl: 1 Botox 200 units injection, , Disp: , Rfl: buPROPion XL (Wellbutrin XL) 150 MG 24 hr tablet, Take 150 mg by mouth in the morning., Disp: , Rfl: busPIRone (Buspar) 15 MG tablet, TAKE 1 TABLET BY MOUTH THREE TIMES DAILY 30 MINUTES BEFORE MEALS FOR ANXIETY, Disp: , Rfl: citalopram (CeleXA) 40 MG tablet, Take 40 mg by mouth in the morning., Disp: , Rfl: clonazePAM (KlonoPIN) 0.5 MG tablet, Take by mouth 2 times daily., Disp: , Rfl: diphenhydrAMINE (Benadryl Allergy) 25 MG capsule, Take 1 capsule (25 mg) by mouth if needed at bedtime for itching., Disp: 30 capsule, Rfl: 3 EPINEPHrine (Epipen) 0.3 MG/0.3ML injection syringe, INJECT 0.3 ML DIRECTED FOR ALLERGIC REACTION AND THEN CALL 911, Disp: 2 each, Rfl: 3 ferrous sulfate (Fe Tabs) 325 (65 Fe) MG EC tablet, Take 1 tablet (325 mg) by mouth with breakfast.Do not crush, chew, or split., Disp: 90 tablet, Rfl: 2 ferrous sulfate 325 (65 Fe) MG EC tablet, Take 1 tab orally twice a day, Disp: 60 tablet, Rfl: 2 montelukast (Singulair) 10 MG tablet, TAKE 1 TABLET BY MOUTH DAILY IN THE EVENING, Disp: , Rfl: Omeprazole 20 MG tablet delayed-release, Take 20 mg by mouth in the morning., Disp: 14 tablet, Rfl:0 predniSONE (Deltasone) 20 MG tablet, , Disp: , Rfl: rizatriptan (Maxalt) 10 MG tablet, , Disp: , Rfl: Sodium Fluoride 1.1 % cream, [place] teeth for 2 minutes, morning and night. Spit, do not rinse. Do not eat or drink anything for 30 minutes following use., Disp: 112 g, Rfl: 3 Symbicort 160-4.5 MCG/ACT inhaler, Inhale 2 puffs 2 times daily., Disp: , Rfl: tiZANidine (Zanaflex) 2 MG tablet, Take 1 tablet (2 mg) by mouth every 6 (six) hours if needed for muscle spasms for up to 10 days., Disp: 30 tablet, Rfl: 0 documented in this encounter Plan of Treatment Upcoming Encounters Date Type Department Care Team (Late st Contact Info) Description 03/09/2025 9:45 AM EDT Office Visit [facility] MED & PEDS [address] [place] [address] Rodney Ordonez MD [address] [place] [address] 03/24/2025 10:00 AM EDT Office Visit [facility] AD[facility] DENT[facility] [address] [place] [address] Reinier Ordonez Scheduled Orders Name Type Priority Associated Diagnoses Orde r Schedule CBC auto differential Lab Routine Fever, unspecified fever cause Fatigue, unspecified type Expected: 03/02/2025 (Approximate), Expires: 03/02/2026 Basic Metabolic Panel Lab Routine Fever, unspecified fever cause Fatigue, unspecified type Expected: 03/02/2025 (Approximate), Expires: 03/02/2026 TSH W/Reflex to FT4 Lab Routine Fever, unspecified fever cause Fatigue, unspecified type Expected: 03/02/2025 (Approximate), Expires: 03/02/2026 Iron And Total Iron Binding Capacity Lab Routine Fever, unspecified fever cause Fatigue, unspecified type Expected: 03/02/2025, Expires: 03/02/2026 Vitamin D, 25-Hydroxy, Total, Immunoassay Lab Routine Fever, unspecified fever cause Fatigue, unspecified type Expected: 03/02/2025 (Approximate), Expires: 03/02/2026 Ferritin Lab Routine Fever, unspecified fever cause Fatigue, unspecified type Expected: 03/02/2025, Expires: 03/02/2026 T-SPOT .TB Lab Routine Fever, unspecified fever cause Night sweats Fatigue, unspecified type Expected: 03/02/2025 (Approximate), Expires: 03/02/2026 documented as of this encounter Procedures Procedure Name Priority Date/Time Associated Diagnosis Comments POCT , URINE Routine 03/02/2025 3:15 PM EDT Fever, unspecified fever cause POCT COVID-19 AG [facility] ID NOW Routine 03/02/2025 3:13 PM EDT Fever, unspecified fever cause POC [facility] ID NOW STREP A Routine 03/02/2025 3:12 PM EDT Fever, unspecified fever cause POCT INFLUENZA B (ID NOW RAPID MOLECULAR) Routine 03/02/2025 3:07 PM EDT Fever, unspecified fever cause POCT INFLUENZA A (ID NOW RAPID MOLECULAR) Routine 03/02/2025 2:59 PM EDT Fever, unspecified fever cause documented in this encounter Results * POCT , urine manually resulted (03/02/2025 3:15 PM EDT) Preg Test, Ur Negative Negative, Indeterminate, None Detected, Invalid, Specimen unsatisfactory for evaluation, Weakly Positive, 2+ QC Media Lot # Comment:[id number] Lot# Expiration Date Comment:04/20/2025 Urine 03/02/2025 3:15 PM EDT [facility] POINT OF CARE TEST ENTER/ EDIT ORDERABLES Final Result * POCT COVID-19 Ag [facility] ID NOW (03/02/2025 3:13 PM EDT) Pathologist [facility] Coronavirus Antigen PCR Negative Negative, Indeterminate, None Detected, Invalid, Specimen unsatisfactory for evaluation, Weakly Positive, 2+ QC Media Lot # Comment:[id number] Lot# Expiration Date Comment:01/20/2026 Swab 03/02/2025 3:13 PM EDT [facility] POINT OF CARE TEST ENTER/ EDIT ORDERABLES Edited Result - Final * POCT ID NOW Rapid Strep A manually resulted (03/02/2025 3:12 PM EDT) Pathologist [facility] Rapid Strep A Screen Negative Negative, None Detected QC Media Lot # Comment:[id number] Lot# Expiration Date Comment:05/28/2025 Swab 03/02/2025 3:12 PM EDT [facility] POINT OF CARE TEST ENTER/ EDIT ORDERABLES Final Result * Influenza B (ID NOW Rapid Molecular) (03/02/2025 3:07 PM EDT) Influenza B Negative Negative, Indeterminate [facility] QC Media Lot # [facility] Comment:[id number] Lot# Expiration Date [facility] Comment:07/29/2026 Swab 03/02/2025 3:07 PM EDT [facility] POINT OF CARE TEST ENTER/ EDIT ORDERABLES Final Result [facility] [address] [place] [address] [phone] * Influenza A (ID NOW Rapid Molecular) (03/02/2025 2:59 PM EDT) Influenza A Negative Negative, Indeterminate [facility] QC Media Lot # [facility] Comment:[id number] Lot# Expiration Date [facility] Comment:07/29/2026 Swab 03/02/2025 2:59 PM EDT [facility] POINT OF CARE TEST ENTER/ EDIT ORDERABLES Final Result [facility] [address] [place] [address] [phone] documented in this encounter Visit Diagnoses Diagnosis Fever, unspecified fever cause- Primary Chronic sinusitis, unspecified location Night sweats Generalized hyperhidrosis Fatigue, unspecified type documented in this encounter Additional Health Concerns Assessment Noted Time PHQ-9 Depression Total Score: 11 025 11:29 AM EST documented as of this encounter Care Teams Real Estate Broker Relationship Specialty Start Date End Date Rodney Ordonez MD [address] [place] [id number] PCP - General Internal Medicine 01/25/19 Shahab Ricci Neurological PhysiotherapistFlask Cleaner 07/12/24 Shahab Ricci Neurological PhysiotherapistFlask Cleaner 12/29/24 documented as of this encounter
--- OUTSIDE RECORDS SUMMARY | 2025-03-02 16:06 | XMS_ITS | Clinical Summary ---
[facility] Organization [facility] Address [address] [place] [address] Care Team Providers Care Tattoo And Body Artist Name Role Phone Rodney Ordonez MD Primary Care Provider [phone] Surgical History Surgery Date Site/Laterality Comments TUBAL [...] 5 Years) and At-Risk Patients (6 to 49 Years) (1 of 2 - PCV) 2009 Cervical Cancer Screening: P ap Smear 2011 HIV Screening 06/07/2022 Hepatitis C Screening 06/07/2022 Social Influencers of Health Screening 06/07/2022 Depression Screening 06/29/2024 COVID-19 Vaccine ( - 2023-2 5 season) 2025 Influenza Vaccine (#1) 2025 DTaP,Tdap,and Td Vaccines (2 - Td or [...] age to complete this topic Meningococcal B Vaccine Aged Out No l onger eligible based on patient's age to complete this topic RSV Immunization Patients Un lillian 20 months Aged Out No longer eligible b ased on patient's age to complete this topic Varicella Vaccines Aged Out No longer eligible based on patient's age to complete this topic Care Teams Tattoo And Body Artist Relationship Specialty Start Date End Date Rodney Ordonez MD [address] [place] [address] PCP - General Internal Medicine 05/08/20
--- OUTSIDE RECORDS SUMMARY | 2025-03-02 16:06 | XMS_ITS | Encounter Summary ---
Author Organization [email or web address] Address [address] [facility] [address] [place] [address] Care Team Providers Care Treadle Cut Off Saw Operator Name Role Phone Rodney Ordonez MD Primary Care Provider [phone] Rubi Gibson RN Unavailable [phone] Jerri More Unavailable Encounter Details Date Type Department Care Team ([facility] st Contact Info) Description 05/16/2024 Orders Only [facility] MED & PEDS [address] [place], [place] [phone] Provider, MD Jud Social History Tobacco Use Types Packs/Day Years [...] Description 03/09/2025 9:45 AM EDT Office Visit [facility]ED[facility] [address] [place] [address] Rodney Ordonez MD [address] [place] [address] 03/24/2025 10:00 AM EDT Office Visit [facility] ADULT DENTAL [address] [place] [address] Reinier Ordonez documented as of this encounter Procedures Procedure Name Priority Date/Time Associated Diagnosis Comments HM COLONOSCOPY Routine 05/16/2024 4:17 PM EST documented in this encounter Results * Hm Colonoscopy (05/16/2024 4:17 PM EST) Historical Provider HEALTH MAINTENANCE Final Result documented in this encounter Visit Diagnoses Not on filedocumented in this encounter Additional Health Concerns Assessment Noted Time PHQ-9 Depression Total Score: 16 024 10:56 AM EST documented as of this encounter Care Teams Treadle Cut Off Saw Operator Relationship Specialty Start Date End Date Rodney Ordonez MD [address] [place] [address] PCP - General Internal Medicine 01/25/19 Rubi Gibson RN [address] [place] [address] Registered Nurse Family Medicine 11/28/24 02/13/25 Jerri More 11/28/24 02/13/25 Shahab Ricci Juice Bar Team MemberAuthors Motivational 07/12/24 Shahab Ricci Juice Bar Team MemberAuthors Motivational 12/29/24 documented as of this encounter
--- OUTSIDE RECORDS SUMMARY | 2025-03-02 16:06 | XMS_ITS | Encounter Summary ---
Author Organization [employer] Address [address] [place] [address] [address] [place] [address] Care Team Providers Care Rivet Hole Machine Operator Name Role Phone Rodney Ordonez MD Primary Care Provider [phone] Rubi Gibson RN Unavailable [phone] Jerri More Unavailable Encounter Details Date Type Department Care Team ([facility] st Contact Info) Description 09/22/2022 Abstract [facility] MED [facility] [address] [place], [place] [phone] Rodney Ordonez MD [address] [place] [address] Social History Tobacco Use Types Packs/Day Years [...] EDT Gender Identity Choose not to disclose 2 10:35 AM EDT Sexual Orientation Choose not [...] Description 03/09/2025 9:45 AM EDT Office Visit [facility] [address] [place] [address] Rodeny Ordonez MD [address] [place] [address] 03/24/2025 10:00 AM EDT Office Visit [facility] ADULT D[facility] [address] [place] [address] Reinier Ordonez documented as of this encounter Visit Diagnoses Not on filedocumented in this encounter Additional Health Concerns Assessment Noted Time PHQ-9 Depression Total Score: 17 023 11:37 AM EST documented as of this encounter Care Teams Rivet Hole Machine Operator Relationship Specialty Start Date End Date Rodney Ordonez MD [address] [place] [address] PCP - General Internal Medicine 01/25/19 Rubi Gibson RN [address] [place] [address] Registered Nurse Family Medicine 11/28/24 02/13/25 Jerri More 11/28/24 02/13/25 Shahab Ricci Line Painting Machine OperatorAdministrative Assistant Receptionist 07/12/24 Shahab Ricci Line Painting Machine OperatorAdministrative Assistant Receptionist 12/29/24 documented as of this encounter
--- OUTSIDE RECORDS SUMMARY | 2025-03-02 16:06 | XMS_ITS | Encounter Summary ---
Author Organization [employer] Address 75 [facility] 7 [place] [address] Care Team Providers Care Urogynecology Physician Name Role Phone Rodney Ordonez MD Primary Care Provider Rubi Gibson RN Unavailable [phone] Jerri More Unavailable Encounter Details Date Type Department Care Team (Late st Contact Info) Description 09/01/2024 Orders Only [facility] MEDICINE [address] [place] [address] Rodney Ordonez MD [address] [place], [place] [phone] Microcytic anemia Social History Tobacco Use Types Packs/Day Years [...] AM EDT documented as of this encounter Functional Status * Over the past 2 weeks, how often have you been bothered by any of the following problems? Question Answer Date of Assessment Author Patient Health Questionnaire-2 Score 2 0 11/2024 4:35 PM EST Frey Edilia * Little interest or pleasure in doing things Answer Date of Assessment Author Several days 09/01/2024 4:35 PM EST Frey, T irsa * Feeling down, depressed, or hopeless Answer Date of Assessment Author Several days 09/01/2024 4:35 PM EST Frey, T irsa * Trouble falling or staying asleep, or sleeping too much Answer Date of Assessment Author Nearly every day 09/01/2024 4:35 PM EST Frey Edilia * Feeling tired or having little energy Answer Date of Assessment Author More than half the days 09/01/2024 4:35 PM EST R ruth Edilia * Poor appetite or overeating Answer Date of Assessment Author Several days 09/01/2024 4:35 PM EST Frey, T irsa * Feeling bad about yourself - or that you are a failure or have let yourself or your family down Answer Date of Assessment Author Not at all 09/01/2024 4:35 PM EST Frey, T irsa * Trouble concentrating on things, such as reading the newspaper or watching television Answer Date of Assessment Author Nearly every day 09/01/2024 4:35 PM EST Tom Freysa * Moving or speaking so slowly that other people could have noticed? Or the opposite - being so fidgety or restless that you have been moving around a lot more than usual. Answer Date of Assessment Author Several days 09/01/2024 4:35 PM EST Tk T irsa * Over the last 2 weeks, how often have you been bothered by any of the following problems? Question Answer Date of Assessment Author Feeling nervous, anxious, or on edge 3 11/2024 4:37 PM EST Tk Edilia Not being able to stop or co ntrol worrying 3 09/01/2024 4:37 PM EST Frey Edilia Worrying too much about different things 3 09/01/2024 4:37 PM EST Tk Edilia Trouble relaxing 1 09/01/2024 4:37 PM EST Hima herringro Edilia Being so restless that it is hard to sit still 3 09/01/2024 4:37 PM EST Frey Edilia Becoming easily annoyed or irritable 0 11/2024 4:37 PM EST Frey Edilia Feeling afraid as if somethi ng awful might happen 3 09/01/2024 4:37 PM EST Frey, Edilia JS-7 Total Score 16 09/01/2024 4:37 PM EST Tk Edilia documented as of this encounter Plan of Treatment Upcoming Encounters Date Type Department Care Team (Late st Contact Info) Description 03/09/2025 9:45 AM EDT Office Visit [facility] MED & PEDS [address] [place] [address] Rodney Ordonez MD [address] [place], [place] [phone] 03/24/2025 10:00 AM EDT Office Visit [facility] ADULT DENTAL [address] [place] [address] Reinier Ordonez documented as of this encounter Visit Diagnoses Diagnosis Microcytic anemia Unspecified iron deficiency anemia documented in this encounter Additional Health Concerns Assessment Noted Time PHQ-9 Depression Total Score: 11 025 11:29 AM EST documented as of this encounter Care Teams Urogynecology Physician Relationship Specialty Start Date End Date Rodney Ordonez MD [address] [place] [address] PCP - General Internal Medicine 01/25/19 Rubi Gibson RN [address] [place] [address] Registered Nurse Family Medicine 11/28/24 02/13/25 Jerri More 11/28/24 02/13/25 Shahab Ricci Sports Equipment RackerUpholstery Cutter 07/12/24 Shahab Ricci Sports Equipment RackerUpholstery Cutter 12/29/24 documented as of this encounter
--- OUTSIDE RECORDS SUMMARY | 2025-03-02 16:07 | XMS_ITS | Encounter Summary ---
Author Organization [employer] Address [address] [address] Care Team Providers Care Manager Play Name Role Phone Rodney Ordonez MD Primary Care Provider [phone] Reason for Visit * Reason Onset Date Comments Nurse Triage 03/01/2025 Encounter Details Date Type Department Care Team (Late st Contact Info) Description 03/01/2025 Telephone [facility] MEDICINE [address] [place] [address] Rodney Ordonez MD [address] [place] [address] Nurse Triage Social History Tobacco Use Types [...] your housing situation today? I have urban darci 08/31/[address] you li [...] encounter Miscellaneous Notes * Telephone Encounter - Marybeth Levi RN - 03/01/2025 1:50 PM EDT No dairy scientist needed as this press writer speaks Estonian. Call returned to Cynthia Nuno to triage below at [phone]. Reports having intermittent fevers x 1 week. Per pt last night of 101.F. Pt states last week had ST and mild TAMIKO sx. Those have resolved. Denies any vomiting or diarrhea. Mild nausea and lightheadedness. Pt endorses performing a HPT 2 weeks ago and had inconclusive results. Pt states LMP was at end of December first week of January. Per pt had Tubal ligation over 10 years ago. Pt advised to discuss with provider at visit. Reviewed home care advise, ER precautions and reasons to call back. Protocol Used: Fever (Adult) Protocol-Based Disposition: See in Office or Video Visit Today Override (Final) Disposition: See in Office or Video Visit Today or Tomorrow Override Reason: No appointments available Future Appointments Date Time Provider Department Center 03/02/2025 2:15 PM Jada Douglass CNP [facility] 03/09/2025 9:45 AM Rodney Ordonez MD [facility] 03/24/2025 10:00 AM Reinier Ordonez [facility] Insurance verified as active per Real Time Eligibility in Epic. Video visit offer not recorded Positive Triage Question: * Patient wants to be seen * All higher-acuity triage questions were negative Care Advice Discussed: * Reassurance and Education - Fever * Fever Medicines * Reasons To Call Back - You become worse * Telephone Encounter - Marcos Verdugo - 03/01/2025 12:47 PM EDT Symptom: Fever Outcome: Schedule an appointment to be seen within 24 hours Reason: Caller denied all higher acuity questions Please contact pt at [phone] (Estonian Speaker) documented in this encounter Plan of Treatment Upcoming Encounters Date Type Department Care Team ([facility] st Contact Info) Description 03/09/2025 9:45 AM EDT Office Visit [facility] MED & PEDS [address] [place] [address] Rodney Ordonez MD [address] [place] [address] 03/24/2025 10:00 AM EDT Office Visit [facility] ADULT DENTAL [address] [place] [address] Reinier Ordonez documented as of this encounter Visit Diagnoses Not on filedocumented in this encounter Additional Health Concerns Assessment Noted Time PHQ-9 Depression Total Score: 11 025 11:29 AM EST documented as of this encounter Care Teams Manager Play Relationship Specialty Start Date End Date Rodney Ordonez MD [address] [place] [address] PCP - General Internal Medicine 01/25/19 Shahab Ricci Nursing Surgical Services DirectorExplosive Operator 07/12/24 Shahab Ricci Nursing Surgical Services DirectorExplosive Operator 12/29/24 documented as of this encounter
--- OUTSIDE RECORDS SUMMARY | 2025-03-02 16:07 | XMS_ITS | Encounter Summary ---
Author Organization [employer] Address [address] [facility] 7t [place] [address] Care Team Providers Care Bottler Helper Name Role Phone Rodney Ordonez MD Primary Care Provider [phone] Encounter Details Date Type Department Care Team (Latest Contact Info) Description 03/02/2025 Travel Social History Tobacco Use Types Packs/Day [...] Description 03/09/2025 9:45 AM EDT Office Visit [facility] MED & PEDS [address] [place] [address] Rodney Ordonez MD [address] [place] [address] 03/24/2025 10:00 AM EDT Office Visit [facility] ADULT DENTAL [address] [place] [address] Reinier Ordonez documented as of this encounter Visit Diagnoses Not on filedocumented in this encounter Additional Health Concerns Assessment Noted Time PHQ-9 Depression Total Score: 11 025 11:29 AM EST documented as of this encounter Care Teams Bottler Helper Relationship Specialty Start Date End Date Rodney Ordonez MD [address] [place] [address] PCP - General Internal Medicine 01/25/19 Shahab Ricci Black BeltScreen Printing Machine Operator 07/12/24 Shahab Ricci Black BeltScreen Printing Machine Operator 12/29/24 documented as of this encounter
--- OUTSIDE RECORDS SUMMARY | 2025-03-02 16:07 | XMS_ITS | Encounter Summary ---
Author Organization [employer] Address [address] [place] [address] Care Team Providers Care Assistant Manager Retail Name Role Phone Rodney Ordonez MD Primary Care Provider Rubi Gibson RN Unavailable [phone] Jerri More Unavailable Reason for Referral * Consultation (Routine) - Closed Specialty Diagnoses / Procedures Referred By Contac t Referred To Contact Neurology Diagnoses Chronic migraine without aura with status migrainosus, not intractable Rodney Ordonez MD [address] [place] [address] Phone: tel: fax: Salvador John MD [address] [place] [address] Phone: tel: fax: Referral ID Status Reason Start Date Expiration Date V isits Requested Visits Authorized [id number] Closed Specialty Services Required 02/17/2024 02/16/2025 1 1 Encounter Details Date Type Department Care Team (Late st Contact Info) Description 02/17/2024 Orders Only [facility] [address] [place] [address] Rodney Ordonez MD [address] [place], [place] [phone] Chronic migraine without aura with status migrainosus, [...] Upcoming Encounters Date Type Department Care Team ([facility] st Contact Info) Description 03/09/2025 9:45 AM EDT Office Visit [facility] CH[facility] MED & PEDS [address] [place] [address] Rodney Ordonez MD [address] [place], [place] [phone] 03/24/2025 10:00 AM EDT Office Visit [facility] CHC ADULT DENTAL [address] [place] [address] Reinier Ordonez Scheduled Referrals Name Type Priority [...] documented as of this encounter Care Teams Assistant Manager Retail Relationship Specialty Start Date End Date Rodney Ordonez MD [address] [place] [address] PCP - General Internal Medicine 01/25/19 Rubi Gibson RN [address] [place] [address] Registered Nurse Family Medicine 11/28/24 02/13/25 Jerri More 11/28/24 02/13/25 Sahhab Ricci Airworthiness InspectorContract Clerk Automobile 07/12/24 Shahab Ricci Airworthiness InspectorContract Clerk Automobile 12/29/24 documented as of this encounter
--- OUTSIDE RECORDS SUMMARY | 2025-03-02 16:07 | XMS_ITS | Encounter Summary ---
Author Organization [employer] Address 75 [facility] [address] [place] [address] Care Team Providers Care Boilermaker Apprentice Name Role Phone Rodney Ordonez MD Primary Care Provider [phone] Rubi Gibson RN Unavailable [phone] Jerri More Unavailable Reason for Visit * Reason Onset Date Comments Referral 09/03/2023 Encounter Details Date Type Department Care Team (Late st Contact Info) Description 09/03/2023 Telephone [facility] MEDICINE [address] [place] [address] Rodney Ordonez MD [address] [place], [place] [phone] Referral Social History Tobacco Use Types Packs/Day [...] regards to pt requesting a referral for industrial relations commissioner. Ptwas advised after ED visit 08/31/23 from [facility] to be seen with industrial relations commissioner due to being diagnosed with Anemia. Please contact pt at [phone] If any questions you can contact Shahab at [phone]. documented in this encounter Plan of Treatment Upcoming Encounters Date Type Department Care Team (Late st Contact Info) Description 03/09/2025 9:45 AM EDT Office Visit [facility] MED & PEDS [address] [place] [address] Rodney Ordonez MD [address] [place] [address] 03/24/2025 10:00 AM EDT Office Visit [facility] ADULT DENTAL [address] [place] [address] Reinier Ordonez documented as of this encounter Visit Diagnoses Not on filedocumented in this encounter Additional Health Concerns Assessment Noted Time PHQ-9 Depression Total Score: 16 024 10:56 AM EST documented as of this encounter Care Teams Boilermaker Apprentice Relationship Specialty Start Date End Date Rodney Ordonez MD [address] [place] [address] PCP - General Internal Medicine 01/25/19 Rubi Gibson RN [address] [place] [address] Registered Nurse Family Medicine 11/28/24 02/13/25 Jerri More 11/28/24 02/13/25 Shahab Ricci Powder CoaterSoaking Room Operator 07/12/24 Shahab Ricci Powder CoaterSoaking Room Operator 12/29/24 documented as of this encounter
--- OUTSIDE RECORDS SUMMARY | 2025-03-02 16:07 | XMS_ITS | Encounter Summary ---
Author Organization [employer] Address 75 [facility] 7 [place] [address] Care Team Providers Care Confectionery Maker Name Role Phone Rodney Ordonez MD Primary Care Provider [phone] Rubi Gibson RN Unavailable [phone] Jerri More Unavailable Reason for Visit * Reason Onset Date Comments Lab Orders 12/05/2024 Encounter Details Date Type Department Care Team (Late st Contact Info) Description 12/05/2024 Telephone [facility] MEDICINE [address] [place] [address] Rodney Ordonez MD [address] [place] [address] Lab Orders Social History Tobacco Use Types Packs/Day Years [...] encounter Miscellaneous Notes * Telephone Encounter - Reginaldo Ny - 12/05/2024 12:08 PM EDT TC from pt wanting to know if pcp would like labs recheck for A1C prior to scheduling a visit. documented in this encounter Plan of Treatment Upcoming Encounters Date Type Department Care Team ([facility] st Contact Info) Description 03/09/2025 9:45 AM EDT Office Visit [facility] CHC MED & PEDS [address] [place], [place] [phone] Rodney Ordonez MD [address] [place], [place] [phone] 03/24/2025 10:00 AM EDT Office Visit [facility] CHC ADULT DENTAL [address] [place] [address] Reinier Ordonez documented as of this encounter Visit Diagnoses Not on filedocumented in this encounter Additional Health Concerns Assessment Noted Time PHQ-9 Depression Total Score: 11 025 11:29 AM EST documented as of this encounter Care Teams Confectionery Maker Relationship Specialty Start Date End Date Rodney Ordonez MD [address] [place] [address] PCP - General Internal Medicine 01/25/19 Rubi Gibson RN [address] [place] [address] Registered Nurse Family Medicine 11/28/24 02/13/25 Jerri More 11/28/24 02/13/25 Shahab Ricci Senior Energy ConsultantFire Protection Specialist 07/12/24 Shahab Ricci Senior Energy ConsultantFire Protection Specialist 12/29/24 documented as of this encounter
--- OUTSIDE RECORDS SUMMARY | 2025-03-02 16:07 | XMS_ITS | Encounter Summary ---
Author Organization [employer] Address [address] [place] [address] 7 [place] [address] Care Team Providers Care Cage Tender Name Role Phone Rodney Ordonez MD Primary Care Provider Rubi Gibson RN Unavailable [phone] Jerri Mroe Unavailable Encounter Details Date Type Department Care Team ([facility] st Contact Info) Description 09/07/2023 Orders Only [facility] CHC MED & PEDS [address] [place], [place] [phone] Rodney Ordonez MD [address] [place], [place] [phone] H. pylori infection (Primary Dx) Social History [...] Description 03/09/2025 9:45 AM EDT Office Visit [facility] MED & PEDS [address] [place] [address] Rodney Ordonez MD [address] [place] [address] 03/24/2025 10:00 AM EDT Office Visit [facility] ADULT DENTAL [address] [place] [address] Reinier Ordonez documented as of this encounter Visit Diagnoses Diagnosis H. pylori infection- Primary Helicobacter pylori (H. pylori) documented in this encounter Additional Health Concerns Assessment Noted Time PHQ-9 Depression Total Score: 16 024 10:56 AM EST documented as of this encounter Care Teams Cage Tender Relationship Specialty Start Date End Date Rodney Ordonez MD [address] [place] [address] PCP - General Internal Medicine 01/25/19 Rubi Gibson RN [address] [place] [address] Registered Nurse Family Medicine 11/28/24 02/13/25 Jerri More 11/28/24 02/13/25 Shahab Ricci Candy Forming Machine OperatorData Collection Specialist 07/12/24 Shahab Ricci Candy Forming Machine OperatorData Collection Specialist 12/29/24 documented as of this encounter
--- OUTSIDE RECORDS SUMMARY | 2025-03-02 16:07 | XMS_ITS | Encounter Summary ---
Author Organization [employer] Address 75 [facility] 7 [place] [address] Care Team Providers Care Nurse Practitioner Per Diem Name Role Phone Rodney Ordonez MD Primary Care Provider Rubi Gibson RN Unavailable [phone] Jerri More Unavailable Reason for Visit * Reason Onset Date Comments ER Follow-up 12/29/2023 Encounter Details Date Type Department Care Team (Late st Contact Info) Description 12/29/[address] [facility] MEDICINE [address] [place] [address] Rodney Ordonez MD [address] [place] [address] ER Follow-up Social History Tobacco Use Types [...] 9:30 AM EDT Tc to pt using [employer] [place], [place] [id number] for ED follow-up. Pt repports feeling better, [...] ED visit on : Date: 12/27 Hospital: [facility] Seen for: High Blood Pressure , Dizziness and migraine Patient advised will forward to team nurse for follow up documented in this encounter Plan of Treatment Upcoming Encounters Date Type Department Care Team (Late st Contact Info) Description 03/09/2025 9:45 AM EDT Office Visit [facility] MED & PEDS [address] [place] [address] Rodney Ordonez MD [address] [place] [address] 03/24/2025 10:00 AM EDT Office Visit [facility] ADULT DENTAL [address] [place] [address] Reinier Ordonez documented as of this encounter Visit Diagnoses Not on filedocumented in this encounter Additional Health Concerns Assessment Noted Time PHQ-9 Depression Total Score: 16 024 10:56 AM EST documented as of this encounter Care Teams Nurse Practitioner Per Diem Relationship Specialty Start Date End Date Rodney Ordonez MD [address] [place] [address] PCP - General Internal Medicine 01/25/19 Rubi Gibson RN [address] [place] [address] Registered Nurse Family Medicine 11/28/24 02/13/25 Jerri More 11/28/24 02/13/25 Shahab Ricci Sand TempererPlate Roller 07/12/24 Shahab Ricci Sand TempererPlate Roller 12/29/24 documented as of this encounter
--- OUTSIDE RECORDS SUMMARY | 2025-03-02 16:07 | XMS_ITS | Encounter Summary ---
Author Organization [employer] Address 75 [facility] 7 [place] [address] Care Team Providers Care Painter And Grader Cork Name Role Phone Rodney Ordonez MD Primary Care Provider [phone] Rubi Gibson RN Unavailable [phone] Jerri More Unavailable Encounter Details Date Type Department Care Team (Late st Contact Info) Description 09/17/2023 Telephone [facility] MEDICINE [address] [place] [address] Rodney Ordonez MD [address] [place] [address] Social History Tobacco Use Types Packs/Day Years [...] encounter Miscellaneous Notes * Telephone Encounter - Idalia Sharma RN - 09/22/2023 5:23 PM EDT TC placed to patient via Reading Room Bilingual Speech Language Pathologist x 2 regarding message below. Patient didn't answer. TCplaced to patient without correctional counselor line. Patient answered. Explained message below in very basicSpanish, and patient still confused. Asked patient for permission to call back with correctional counselor line and patient agreed. TC placed again to patient via Reading Room Bilingual Speech Language Pathologist. Explained message above and patient states she does have extremely painful periods and wants to consider hormonal treatment or next steps. Asked for next appointment at [facility] and scheduled for 09/29/23 @ 10:30am with [...] CNM; # * Telephone Encounter - Idalia Sharma RN - 09/21/2023 3:51 PM EDT Images from the original note were not included. MD Ofe López [facility] Med & Peds Nurses Caller: Unspecified (4 days ago, 11:50 AM) Rizatriptan sent to pt's pharmacy. Regarding the referral to Ophthalmology, Ms Cynthia Nuno can herself call an machine rough rounder in the area to make her appointment herself, no referral isneeded from the office. TC placed to patient via Reading Room Bilingual Speech Language Pathologist regarding above message. 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 Instead, she is taking Nurtec for migraines, which was prescribed by her neurologist. She was informed about the ophthalmology referral not being necessary, and she states she will try to make an appointment with the [facility] at [facility]. Routing to PCP so he is aware. [...] 9:45 AM EDT Office Visit [facility] MED & PEDS [address] [place] [address] Rodney Ordonez MD [address] [place] [address] 03/24/2025 10:00 AM EDT Office Visit [facility] ADULT DENTAL [address] [place] [address] Reinier Ordonez documented as of this encounter Visit Diagnoses Not on filedocumented in this encounter Additional Health Concerns Assessment Noted Time PHQ-9 Depression Total Score: 16 024 10:56 AM EST documented as of this encounter Care Teams Painter And Grader Cork Relationship Specialty Start Date End Date Rodney Ordonez MD [address] [place] [address] PCP - General Internal Medicine 01/25/19 Rubi Gibson RN [address] [place] [address] Registered Nurse Family Medicine 11/28/24 02/13/25 Jerri More 11/28/24 02/13/25 Shahab Ricci Printed Products AssemblerSystems Spec 07/12/24 Shahab Ricci Printed Products AssemblerSystems Spec 12/29/24 documented as of this encounter
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
--- OUTSIDE RECORDS SUMMARY | 2025-03-02 16:07 | XMS_ITS | Encounter Summary ---
Author Organization [employer] Address [address] [place] [address] 7 [place] [address] Care Team Providers Care Sliver Cutter Name Role Phone Rodney Ordonez MD Primary Care Provider Rubi Gibson RN Unavailable [phone] Jerri More Unavailable Encounter Details Date Type Department Care Team ([facility] st Contact Info) Description 06/10/2024 Orders Only [facility] MED & PEDS [address] [place], [place] [phone] Rodney Ordonez MD [address] [place], [place] [phone] Neck muscle spasm (Primary Dx) Social History [...] Description 03/09/2025 9:45 AM EDT Office Visit [facility] MED & PEDS [address] [place] [address] Rodney Ordonez MD [address] [place] [address] 03/24/2025 10:00 AM EDT Office Visit [facility] ADULT DENTAL [address] [place] [address] Reinier Ordonez documented as of this encounter Visit Diagnoses Diagnosis Neck muscle spasm- Primary documented in this encounter Additional Health Concerns Assessment Noted Time PHQ-9 Depression Total Score: 16 024 10:56 AM EST documented as of this encounter Care Teams Sliver Cutter Relationship Specialty Start Date End Date Rodney Ordonez MD [address] [place] [address] PCP - General Internal Medicine 01/25/19 Rubi Gibson RN [address] [place] [address] Registered Nurse Family Medicine 11/28/24 02/13/25 Jerri More 11/28/24 02/13/25 Shahab Ricci Wood Veneer TaperSpecialist Physician 07/12/24 Shahab Ricci Wood Veneer TaperSpecialist Physician 12/29/24 documented as of this encounter
--- OUTSIDE RECORDS SUMMARY | 2025-03-02 16:07 | XMS_ITS | Encounter Summary ---
Author Organization [employer] Address [address] [place] [address] Care Team Providers Care Transmitter Supervisor Name Role Phone Rodney Ordonez MD Primary Care Provider [phone] Reason for Visit * Reason Onset Date Comments Chart prep 03/02/2025 Encounter Details Date Type Department Care Team ([facility] st Contact Info) Description 03/02/2025 Telephone [facility] CHC MED & PEDS [address] [place] [address] Rodney Ordonez MD [address] [place] [address] Chart prep Social History Tobacco Use Types Packs/Day Years [...] encounter Miscellaneous Notes * Telephone Encounter - Jennifer Ewing MA - 03/02/2025 8:08 AM EDT Chart Prep Labs: not applicable Images: not applicable Referrals: not applicable Vaccines due: HPV,HepB Screenings: not applicable Overdue care gaps: Disability screen documented in this encounter Plan of Treatment Upcoming Encounters Date Type Department Care Team (Late st Contact Info) Description 03/09/2025 9:45 AM EDT Office Visit [facility] MED & PEDS [address] [place] [address] Rodney Ordonez MD [address] [place] [address] 03/24/2025 10:00 AM EDT Office Visit [facility] ADULT DENTAL [address] [place] [address] Reinier Ordonez documented as of this encounter Visit Diagnoses Not on filedocumented in this encounter Additional Health Concerns Assessment Noted Time PHQ-9 Depression Total Score: 11 08/31/ 025 11:29 AM EST documented as of this encounter Care Teams Transmitter Supervisor Relationship Specialty Start Date End Date Rodney Ordonez MD [address] [place] [address] PCP - General Internal Medicine 01/25/19 Shahab Ricci Scan CoordinatorForestry Worker 07/12/24 Shahab Ricci Scan CoordinatorForestry Worker 12/29/24 documented as of this encounter
--- OUTSIDE RECORDS SUMMARY | 2025-03-02 16:07 | XMS_ITS | Encounter Summary ---
Author Organization [employer] Address [address] [place] [address], [place] [address] Care Team Providers Care Geochemist Name Role Phone Rodney Ordonez MD Primary Care Provider Rubi Gibson RN Unavailable [phone] Jerri More Unavailable Reason for Visit * Reason Onset Date Comments Nurse Triage 04/05/2024 Encounter Details Date Type Department Care Team ([facility] st Contact Info) Description 04/05/2024 Telephone [facility] CHC MED & PEDS [address] [place], [place] [phone] Rodney Ordonez MD [address] [place], [place] [phone] Nurse Triage Social History Tobacco Use Types [...] 04/05/2024 12:11 PM EDT Triage call with [facility] [place] [id number] Pt reports a development of acne over face, cheeks, chest and back. Pt has not had this before. Pt reports itchiness that is severe at times. Pt reports white heads, black heads and red areas and they are big pimples . Pt is not applying anything to the area. Pt is texted handout regarding home care for mild acne in [place] and confirms receiving this. ASK apt with [...] occur - Your teen becomes worse Acne ([place]) handout sent to [phone] * Telephone Encounter - Kassy Smiley - 04/05/2024 11:28 AM EDT Symptom: Acne - Caller Reports Outcome: Schedule an appointment to be seen within 3 days Reason: Caller denied all higher acuity questions The caller accepted this outcome. documented in this encounter Plan of Treatment Upcoming Encounters Date Type Department Care Team ([facility] st Contact Info) Description 03/09/2025 9:45 AM EDT Office Visit [facility] MED & PEDS [address] [place] [phone] Rodney Ordonez MD [address] [place] [address] 03/24/2025 10:00 AM EDT Office Visit [facility] ADULT DENTAL [address] [place] [address] Reinier Ordonez documented as of this encounter Visit Diagnoses Not on filedocumented in this encounter Additional Health Concerns Assessment Noted Time PHQ-9 Depression Total Score: 16 024 10:56 AM EST documented as of this encounter Care Teams Geochemist Relationship Specialty Start Date End Date Rodney Ordonez MD [address] [place] [address] PCP - General Internal Medicine 01/25/19 Rubi Gibson RN [address] [place] [address] Registered Nurse Family Medicine 11/28/24 02/13/25 Jerri More 11/28/24 02/13/25 Shahab Ricci Restaurant HostessSample Examiner 07/12/24 Shahab Ricci Restaurant HostessSample Examiner 12/29/24 documented as of this encounter
--- OUTSIDE RECORDS SUMMARY | 2025-03-02 16:07 | XMS_ITS | Clinical Summary ---
Author Organization [employer] Address [address] [place] [address] 7 [place] [address] Care Team Providers Care Cso Name Role Phone Rodney Ordonez MD Primary Care Provider [phone] Allergies Active Allergy Reactions Criticality Noted Date Comments Ethanol Anaphylaxis High 02/27/2021 Ibuprofen Hives High 07/11/2022 Other 03/02/2025 Quetiapine Other High 09/13/2018 As per patient Seizures, head aches loss of memorie. Rizatriptan 03/02/2025 Itchy throat Shellfish Allergy 03/02/2025 Shellfish-Derived Products 3 Sumatriptan 03/02/2025 Topiramate 03/02/2018 Caused itching both hands and feet Medications * This document contains information received from the source organization and may not represent a complete record from that organization. ARIPiprazole (Abilify) 5 MG tablet take 1 tablet by oral route every day at bed time. Active B Complex Vitamins (RA B-Complex with B-12) tablet Take 1 tablet by mouth. 021 Active Symbicort 160-4.5 MCG/ACT inhaler Inhale 2 puffs 2 times daily. 022 Active busPIRone (Buspar) 15 MG tablet TAKE 1 TABLET BY MOUTH THREE TIMES DAILY 30 MINUTES BEFORE MEALS FOR ANXIETY 023 Active citalopram (CeleXA) 40 MG tablet Take 40 mg by mouth in the morning. 023 Active clonazePAM (KlonoPIN) 0.5 MG tablet Take by mouth 2 times daily. 018 Active montelukast (Singulair) 10 MG tablet TAKE 1 TABLET BY MOUTH DAILY IN THE EVENING Active Botox 200 units injection 023 Active EPINEPHrine (Epipen) 0.3 MG/0.3ML injection syringeIndicati ons:Allergic reaction, subsequent encounter INJECT 0.3 ML DIRECTED FOR ALLERGIC REACTION AND THEN CALL 911 2 each 3 023 Active albuterol (ProAir HFA) 108 (90 Base) MCG/ACT inhalerIndicati ons:Moderate persistent asthma without complication Inhale 2 puffs every 6 (six) hours. 18 g 023 Active albuterol (2.5 MG/3ML) 0.083% nebulizer solutionIndicat ions:Moderate persistent asthma without complication Take 3 mL (2.5 mg) by nebulization every 6 (six) hours if needed for wheezing. 75 mL 023 Active predniSONE (Deltasone) 20 MG tablet 023 Active rizatriptan (Maxalt) 10 MG tablet 023 Active ferrous sulfate 325 (65 Fe) MG EC tabletIndicatio ns:Menorrhagia with regular cycle,Microcyti c anemia Take 1 tab orally twice a day 60 tablet 2 024 Active Omeprazole 20 MG tablet delayed-release Indications:H. pylori infection Take 20 mg by mouth in the morning. 14 tablet 024 Active buPROPion XL (Wellbutrin XL) 150 MG 24 hr tablet Take 150 mg by mouth in the morning. 024 Active benzoyl peroxide (PanOxyl Foaming Wash) 10 % external washIndications :Acne vulgaris Apply topically 2 times daily. 142 g 1 024 2024 Active tiZANidine (Zanaflex) 2 MG tabletIndicatio ns:Neck muscle spasm Take 1 tablet (2 mg) by mouth every 6 (six) hours if needed for muscle spasms for up to 10 days. 30 tablet 024 Active Sodium Fluoride 1.1 % cream Bradley teeth for 2 minutes, morning and night. Spit, do not rinse. Do not eat or drink anything for 30 minutes following use. 112 g 3 025 Active ferrous sulfate (Fe Tabs) 325 (65 Fe) MG EC tabletIndicatio ns:Microcytic anemia Take 1 tablet (325 mg) by mouth with breakfast. Do not crush, chew, or split. 90 tablet 2 2025 Active cetirizine (ZyrTEC) 10 MG tablet Take 1 tablet by mouth in the morning. Active cholecalciferol (Vitamin D-3) 1.25 MG (99306 UT) capsule Take 1 capsule by mouth every 7 (seven) days. Active clarithromycin (Biaxin) 250 MG tablet Take 250 mg by mouth. Active diazePAM (Valium) 5 MG tablet TAKE 1 TABLET BY MOUTH THREE TIMES DAILY FOR 5 DAYS NEEDED FOR MODERATE PAIN Active Voltaren 1 % gel Apply topically. Active Banophen 25 MG tablet take 3 tablets by mouth every night at bedtime Active docusate sodium (Colace) 100 MG capsule Take 1 capsule by mouth 2 times daily. Active famotidine (Pepcid) 20 MG tablet Take 1 tablet by mouth Once per day. Active FEXOFENADINE HCL PO Take by mouth. Active fluticasone (Flonase Allergy Relief) 50 MCG/ACT nasal spray Administer 1-2 sprays into affected nostril(s) at bed time. Active fluticasone (Flonase) 50 MCG/ACT nasal spray Administer into affected nostril(s). Active ibuprofen 600 MG tablet Take 1 tablet by mouth every 12 (twelve) hours. Active ibuprofen 800 MG tablet take 1 tablet once a day as needed for migraine ( do not exceed 3 tabs in a week ) Active ipratropium-alb uterol (Duo-Neb) 0.5-2.5 mg/3 mL nebulizer solution Inhale 3 mL every 6 (six) hours. Active lidocaine (Xylocaine) 5 % ointment APPLY TOPICALLY TO THE AFFECTED AREA THREE TIMES DAILY FOR 10 DAYS 03/08/2 025 Active acetaminophen (Tylenol) 325 MG tabletIndicatio ns:Fever, unspecified fever cause,Chronic sinusitis, unspecified location Take 1 tablet (325 mg) by mouth every 6 (six) hours. 30 tablet 025 Active diphenhydrAMINE (Benadryl Allergy) 25 MG capsuleIndicati ons:Chronic sinusitis, unspecified location Take 1 capsule (25 mg) by mouth if needed at bedtime for itching. 30 capsule 3 025 Active acetaminophen (Tylenol) 325 MG tablet Take 1 tablet by mouth every 6 (six) hours. 2024 Discontinued(R eorder (will not trigger notification to Pharmacy)) diphenhydrAMINE (Benadryl Allergy) 25 MG capsule Take 25 mg by mouth. 021 2024 Discontinued(R eorder (will not trigger notification to Pharmacy)) Active Problems Problem Noted Date Diagnosed Date Class 1 obesity 03/02/2025 Moderate major depression 09/01/2024 JS (generalized anxiety disorder) 09/01/2024 Mood disorder 08/31/2024 Procreative management 08/04/2023 Assessment [...] told to avoid NSAID/Aspirin until evaluated by farm supervisor. Will provide epipen. Hospital discharge follow-up 07/11/2022 Moderate persistent asthma 10/24/2021 Vitamin D deficiency 10/24/2021 Migraine 03/16/2019 Mild persistent asthma with allergic rhinitis Overview (10/09/2023): [facility] Encounters Date Type Department Care Team Description 03/02/2025 2:15 PM EDT Office Visit [facility] [address] [place] [address] Jada Douglass CNP Fever, unspecified fever cause (Primary Dx); Chronic sinusitis, unspecified location; Night sweats; Fatigue, unspecified type 03/02/2025 Travel 03/02/2025 Telephone [facility] [address] [place] [address] Rodney Ordonez MD Chart prep 03/01/[address] [address] Rodney Ordonez MD Nurse Triage 02/13/2025 Patient Outreach [address] [address] Rodney Ordonez MD Care Coordination ([facility]/MARIA EUGENIA De Anda #4 RS missed assessment appt_closed ) 01/16/2025 Patient Outreach [address] [address] Rodney Ordonez MD Care Coordination ([facility]/marvin De Anda missed assessment_LVM) 01/09/2025 Patient Outreach [address] [address] Rodney Ordonez MD Care Coordination ([facility]/MARIA EUGENIA De Anda #2 RS missed assessment_lvm) 12/29/[address] [address] Rodney Ordonez MD Care Coordination (ICP Care Plan ) 12/29/2024 Patient Outreach [address] [address] Rodney Ordonez MD Care Coordination ([facility]/Megan More, attempt to RS assessment appt_lvm) 12/22/2024 Patient Outreach [facility] [address] [place] [phone] Rodney Ordonez MD Care Coordination ([facility] initial assessment- LVM) 12/22/2024 Patient Outreach [address] [address] Rodney Ordonez MD Care Coordination ([facility]/Megan More, sdoh assessment_lvm) 12/21/2024 Patient Outreach [address] [address] Rodney Ordonez MD Care Coordination ([facility]/Romy More, initial assessment appt reminder) 12/16/2024 Telephone [facility] [address] [place] [phone] Rodney Ordonez MD Results 12/12/2024 Patient Outreach [facility] [address] [place] [address] Rodney Wallis MD 12/06/2024 Patient Outreach [facility] [address] [place] [address] Rodney Wallis MD 12/05/2024 11:00 AM EDT Office Visit [facility] [address] [place] [address] Clarence Pugh-Rodney Jamison MD Acute post-traumatic headache, not intractable (Primary Dx); Contusion of right upper extremity, initial encounter 12/05/[address] [address] Rodney Pedro MD Lab Orders 12/05/2024 Travel 12/01/2024 Patient Outreach [facility] [address] [place] [address] Rodney Ordonez MD Care Coordination ([facility]/CHW MARIA EUGENIA Gurrola initial assessment scheduled ) from Last 3 Months Immunizations Immunization Administration Dates Next Due Hep B, adult [...] Mass Index 34.74 03/02/2025 2:32 PM EDT Plan of Treatment Upcoming Encounters Date Type Department Care Team (Late st Contact Info) Description 03/09/2025 9:45 AM EDT Office Visit [facility] [address] [place] [address] Rodney Ordonez MD [address] [place] [address] 03/24/2025 10:00 AM EDT Office Visit [facility] [address] [place] [address] José Luis Reinier Health Maintenance Due Date Last Done Comments HPV Vaccines (1 - 3-dose series) 2005 Hepatitis B Vaccines (3 of 3 - 19+ 3-dose series) 10/26/2016 05/28/2016, 04/28/2016 Influenza Vaccine (#1) 2025 , 03/27/2020, 05/24/2019, Additional history exists Depression Monitoring 03/04/2025 09/01/2024, 025 Dental Oral Exam 03/23/2025 09/19/2024 Dental Prophylaxis 03/23/2025 09/19/2024 Dental X-Ray: Bitewings 05/14/2025 05/13/2024 Family Planning (PISQ) 07/04/2025 07/04/2024 Alcohol/Substance Use Screening 08/31/2025 08/31/2024 SDOH Screening 08/31/2025 08/31/2024 Tobacco Screening 12/05/2025 12/05/2024 Disability Screening 03/02/2026 03/02/2025 Dental X-Ray: Full Mouth 05/14/2027 05/13/2024 Cervical [...] Years) and At-Risk Patients (6 to 49) Years Completed 08/26/2023, 04/14/2016 COVID-19 Vaccine Completed 05/05/2024, 06/2020, 11/06/2020 HIV Screening Completed 07/04/2024, 08/26/2023 HIB Vaccines [...] 2:59 PM EDT Fever, unspecified fever cause CT HEAD WO CONTRAST Routine 12/13/2024 Acute post-traumatic headache, not intractable PROPHYLAXIS - ADULT Routine 09/19/2024 9 :00 AM EDT PERIODIC ORAL EVALUATION - ESTABLISHED PATIENT Routine 09/19/2024 9:00 AM EDT HIV 1/2 ANTIGEN/ANTIBODY, FOURTH GENERATION W/RFL Routine [...] Recently Relevant to Health Maintenance Results * POCT , urine manually resulted (03/02/2025 3:15 PM EDT) Pathologist [facility] Preg Test, Ur Negative Negative, Indeterminate, None Detected, Invalid, Specimen unsatisfactory for evaluation, Weakly Positive, 2+ QC Media Lot # Comment:[id number] Lot# Expiration Date Comment:04/20/2025 Urine 03/02/2025 3:15 PM EDT [facility] POINT OF CARE TEST ENTER/ EDIT ORDERABLES Final Result * POCT COVID-19 Ag [facility] ID NOW (03/02/2025 3:13 PM EDT) [facility] Coronavirus Antigen PCR Negative Negative, Indeterminate, None Detected, Invalid, Specimen unsatisfactory for evaluation, Weakly Positive, 2+ QC Media Lot # Comment:[id number] Lot# Expiration Date Comment:01/20/2026 Swab 03/02/2025 3:13 PM EDT Result [facility] POINT OF CARE TEST ENTER/ EDIT ORDERABLES Edited Result - Final * POCT ID NOW Rapid Strep A manually resulted (03/02/2025 3:12 PM EDT) [facility] Rapid Strep A Screen Negative Negative, None Detected QC Media Lot # Comment:[id number] Lot# Expiration Date Comment:05/28/2025 Swab 03/02/2025 3:12 PM EDT [facility] POINT OF CARE TEST ENTER/ EDIT ORDERABLES Final Result * Influenza B (ID NOW Rapid Molecular) (03/02/2025 3:07 PM EDT) [facility] Influenza B Negative Negative, Indeterminate [facility] QC Media Lot # [facility] Comment:[id number] Lot# Expiration Date [facility] Comment:07/29/2026 Swab 03/02/2025 3:07 PM EDT [facility] POINT OF CARE TEST ENTER/ EDIT ORDERABLES Final Result Performing Organization Address [facility] Co de Phone Number [facility] [address] [place] [address] [phone] * Influenza A (ID NOW Rapid Molecular) (03/02/2025 2:59 PM EDT) Pathologist [facility] Influenza A Negative Negative, Indeterminate [facility] QC Media Lot # [facility] Comment:[id number] Lot# Expiration Date [facility] Comment:07/29/2026 Swab 03/02/2025 2:59 PM EDT [facility] POINT OF CARE TEST ENTER/ EDIT ORDERABLES Final Result Performing Organization Address [facility] de Phone Number [facility] [address] [place] [address] [phone] * CT Head w/o Contrast (12/13/2024) Anatomical Region Laterality Modality Head, Neck Computed Tomogra phy Rodney Ordonez MD IMG CT PROCEDURES Final Res ult * HIV-1/2 Antigen and Antibodies, Fourth Generation, with Reflexes (07/04/2024 10:05 AM EST) Pathologist [facility] HIV AB/AG Nonreactive Nonreactive [facility] Comment:HIV-1 p24 Ag and/or HIV-1/HIV-2 Ab not detected.A test result that is nonreactive does not exclude thepossibility of exposure to or infection with HIV-1 and/orHIV-2. Nonreactive results in this assay for individualswith prior exposure to HIV-1 and/or HIV-2 may be due toantigen and antibody levels that are below the limit ofdetection of this assay.The [employer] HIV Ag/Ab Combo assay result andsupplemental assay results should be interpreted inconjunction with the patient's clinical presentation,history and other laboratory results. If the results areinconsistent with clinical evidence, additional testing issuggested to confirm the result. Blood Venous blood specimen / Unknown 07/04/2024 10:05 AM EST 07/04/2024 11:02 AM EST Alla LIN LAB BLOOD ORDERABLES Shea l Result Performing Organization Address [facility] Co de Phone Number [facility] [address] [place] [phone] * Hepatitis C Antibody with Reflex to HCV, RNA, Quantitative, Real-Time PCR (08/26/2023 11:57 AM EST) Hepatitis C Antibody Nonreactive Nonreactive [facility] Comment:Antibodies to HCV no t detected; does not exclude early acuteHCV infection. Blood Venous blood specimen / Unknown 08/26/2023 11:57 AM EST 08/26/2023 2:41 PM EST Rodney Ordonez MD LAB BLOOD ORDERABLES Final Result Performing Organization Address [facility] de Phone Number [facility] [address] [place] [phone] * Thinprep TIS PAP And HPV mRNA E6/E7, CT/NG, TRICH (08/05/2022 12:00 AM EST) Clinical Information: RTN SCREEN [facility] LMP: NONE GIVEN [facility] Prev. PAP: NONE GIVEN [facility] Prev. BX: NONE GIVEN [facility] SOURCE: None given [facility] Statement Of Adequacy: [facility] Comment: Satisfactory for evaluation. Endocervical/transformation zone component present. Interpretation/Re sult: Negative for intraepithelial lesion or malignancy. [facility] COMMENT: This Pap test has been evaluated with computer assisted technology. [facility] [employer] [facility] Press Operator Automatic: Cayden torres [facility] Comment: WENDY KUMARI(ASCP) CT screening location: [facility], [address] [place] [phone] Slide preparation performed at: [facility], [address] [place] [address] CLIA No. [id number] (Always Message) [facility] Comment: EXPLANATORY NOTE: The Pap is [...] HPV nRNA E6/E7 Not Detected Not Detected [facility] [place] [facility] Comment: Methodology: Consumer Advocate-Mediated Amplification This assay detects E6/E7 viral messenger RNA (mRNA) from 14 high-risk HPV types (16,18,31,33,35,39,45,51,52,56,58,59,66,68). Cervical sources are required for HPV testing. If a vaginal source from a patient who has had a total hysterectomy with removal of cervix was submitted, please contact the testing laboratory for alternative testing options. For additional information, please refer to http://[employer]/faq/HDQ218f4 (This link if provided for information/ educational purposes only.) Chlamydia trachomatis RNA, TMA, Urogenital NOT DETECTED NOT DETECTED [facility] Neisseria gonorrhoeae RNA, TMA, Urogenital NOT DETECTED NOT DETECTED [facility] [place] [facility] (Always Message) [facility] [employer] [place] [facility] Comment: The analytical performance characteristics of this assay, when used to test SurePath(TM) specimens have been determined by [facility]. The modifications have not been cleared or approved by the FDA. This assay has been validated pursuant to the CLIA regulations and is used for clinical purposes. For additional information, please refer to https://[employer]/faq/IOV077 (This link is being provided for information/ educational purposes only.) Trichomonas vaginalis, QL, TMA, PAP Vial NOT DETECTED NOT DETECTED [facility] Comment: The analytical performance characteristics of this assay have been determined by [facility]. The modifications have not been cleared or approved by the FDA. This assay has been validated pursuant to the CLIA regulations and is used for clinical purposes. For additional information, please refer to http://education.[employer]/ faq/Trichomonastma (This link is being provided for information/ educational purposes only.) 08/05/2022 08/06/2022 9:3 1 AM EST Narrative [facility] - 08/13/2022 9:22 AM EST FASTING: UNKNOWN Alla Ng CNM LAB PATHOLOGY ORDERABLES Final Result [facility] [address], [place] [address], [address] [place] [phone] [facility] [place] [facility] [address] [facility], ([address]) [place] [address] from Last 3 Months or Most Recently Relevant to Health Maintenance Insurance [facility] C[facility] [place] AD[place] RACHEL CECILLE MARYYEHUDA HANS [id number] [employer] * Guarantor: Cynthia Nuno Account Type Relation to Patient Date of Phone Billing Address Personal/[place] [address] * Guarantor: Cynthia Nuno Account Type Relation to Patient Date of Phone Billing Address Personal/[place] [address] * Guarantor: Cynthia Nuno Account Type Relation to Patient Date of Phone Billing Address Personal/[place] [address] Care Teams Cso Relationship Specialty Start Date End Date Rodney Ordonez MD [address] [place] [phone] PCP - General Internal Medicine 01/25/19 Shahab Ricci Major Gifts OfficerCommunity Worker 07/12/24 Shahab Ricci Major Gifts OfficerCommunity Worker 12/29/24
[2025-03-02 17:55] LABS: MANUAL DIFF FLAG NO
[2025-03-02 18:14] LABS: Hematocrit 35.7 % (37.0-47.0); Hemoglobin 11.3 g/dl (12.0-16.0); Imm Gran Abs Auto 0.08 X10*3/uL (0.00-0.03); Imm Gran Pct Auto 0.7 % (0.0-0.4); Lymphocytes Absolute Auto 3.0 X10*3/uL (1.2-4.9); Mean Corpuscular HGB Conc 31.7 g/dl (31.0-35.0); Mean Corpuscular Hemoglobin 23.8 pg (27.0-33.0); Mean Corpuscular Volume 75.2 fL (80.0-98.0); NRBC Abs Auto 0.000 X10*3/uL (0.0-0.012); NRBC Pct Auto 0.0 /100WBC (0.0-0.2); Platelet Count 451 X10*3/uL (160-400); Red Blood Count 4.75 X10*6/uL (4.20-5.50); White Blood Count 11.8 X10*3/uL (4.8-10.8)
[2025-03-02 18:42] LABS: Anion Gap 11 (12-20); Blood Urea Nitrogen 9 mg/dL (9-16); Calcium 8.7 mg/dL (8.4-10.2); Carbon Dioxide 25 mmol/L (22-29); Chloride 107 mmol/L (96-108); Estimated Glomerular Filt Rate > 60; Iron 29 mcg/dL (30-160); Percent Iron Saturation 10 % (15-50); Potassium 3.6 mmol/L (3.3-5.1); Sodium 139 mmol/L (135-145); Total Iron Binding Capacity 293 mcg/dL (228-428); Unsaturated Iron Binding 264 ug/dL
[2025-03-02 18:46] LABS: Ferritin 11 ng/mL (10-122)
[2025-03-05 08:08] LABS: TS Negative Control Passed; TS Panel A 2; TS Panel B 0; TS Positive Control Passed; TSpotTB Negative (Negative)
== END 2025-03-02 15:08 | disposition home or self-care (01) ==
LOC: HO.CHCLDS 15:07
DX: R53.83 Other fatigue (principal); R61 Generalized hyperhidrosis; R50.9 Fever, unspecified; Z11.1 Encounter for screening for respiratory tuberculosis
CPT/HCPCS: 36415; 80048; 82306; 82728; 83540; 84443; 85025; 86481

== ENCOUNTER 2025-03-07 11:03 | Outpatient (AMB) | payer MEDICAID, SELFPAY ==
--- OUTSIDE RECORDS SUMMARY | 2025-03-02 14:15 | XMS_ITS | Encounter Summary ---
Author Organization [employer] Address [address] [place] [address] [address] [place] [address] Care Team Providers Care Covering And Lining Supervisor Name Role Phone Rodney Ordonez MD Primary Care Provider [phone] Encounter Details Date Type Department Care Team ([facility] st Contact Info) Description 03/02/2025 2:15 PM EDT Office Visit [facility] [address] [place] [address] Elaine Douglass, LEAD APPLIER [address] [place] [address] Fever, unspecified fever cause (Primary Dx); Chronic sinusitis, unspecified location; Night sweats; Fatigue, unspecified type; Microcytic anemia; Menorrhagia with regular cycle; Vitamin D deficiency Social History Tobacco Use Types Packs/Day Years [...] documented in this encounter Progress Notes * Elaine Douglass CNP - 03/02/2025 2:15 PM EDT Cynthia Nuno is a 34 y.o. adult who presents for a acute visit. HPI Cynthia Nuno, 34-year-old female - Experiencing fevers on and off for about a week, along with feeling tired and dizzy and sore throat. - Reports night sweats and congestion, denies CP, SOB. 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 Takes Benadryl for allergies, usually at night, [...] symptoms as a viral upper respiratory infection uczdeznr-yiw-kqcjgjw medications as needed. - Undergo laboratory testing [...] , Rfl: cholecalciferol (Vitamin D-3) 1.25 MG (52838 UT) capsule, Take 1 capsule by mouth [...] , Rfl: Sodium Fluoride 1.1 % cream, [place] teeth for 2 minutes, morning and night. [...] tablet, Rfl: 0 documented in this encounter Miscellaneous Notes * Addendum Note - Elaine Douglass CNP - 03/02/2025 2:15 PM EDTAddended by: ELAINE DOUGLASS on: 03/07/2025 01:21 PM Modules accepted: Orders documented in this encounter Plan of Treatment Upcoming Encounters Date Type Department Care Team (Late st Contact Info) Description 03/09/2025 9:45 AM EDT Office Visit [facility] [address] [place] [address] Rodney Ordonez MD [address] [place], [place] [phone] 03/24/2025 10:00 AM EDT Office Visit [facility] [address] [facility] [place] [address] Reinier Ordonez documented as of this encounter Procedures Procedure Name Priority Date/Time Associated Diagnosis Comments POCT , URINE Routine 03/02/2025 3:15 PM EDT Fever, unspecified fever cause POCT COVID-19 AG MC[facility]OD ID NOW Routine 03/02/2025 3:13 PM EDT Fever, unspecified fever cause POC MCLEOD ID NOW STREP A Routine 03/02/2025 3:12 PM EDT Fever, unspecified fever cause VITAMIN D,25-OH,TOTAL,IA Routine 03/02/2025 3:09 PM EDT Fever, unspecified fever cause Fatigue, unspecified type T-SPOT(R).TB Routine 03/02/2025 3:09 PM EDT Fever, unspecified fever cause Night sweats Fatigue, unspecified type TSH W/REFLEX TO FT4 Routine 03/02/2025 3 :09 PM EDT Fever, unspecified fever cause Fatigue, unspecified type CBC WITH AUTO DIFFERENTIAL Routine 03/02/2025 3:09 PM EDT Fever, unspecified fever cause Fatigue, unspecified type IRON AND TOTAL IRON BINDING CAPACITY Routine 03/02/2025 3:09 PM EDT Fever, unspecified fever cause Fatigue, unspecified type FERRITIN Routine 03/02/2025 3:09 PM EDT Fever, unspecified fever cause Fatigue, unspecified type BASIC METABOLIC PANEL Routine 03/02/2025 3:09 PM EDT Fever, unspecified fever cause Fatigue, unspecified type POCT INFLUENZA B (ID NOW RAPID MOLECULAR) Routine 03/02/2025 3:07 PM EDT Fever, unspecified fever cause POCT INFLUENZA A (ID NOW RAPID MOLECULAR) Routine 03/02/2025 2:59 PM EDT Fever, unspecified fever cause documented in this encounter Results * POCT , urine manually resulted (03/02/2025 3:15 PM EDT) Pathologist [facility] Preg Test, Ur Negative Negative, Indeterminate, None Detected, Invalid, Specimen unsatisfactory for evaluation, Weakly Positive, 2+ QC Media Lot # Comment:[id number] Lot# Expiration Date Comment:04/20/2025 Urine 03/02/2025 3:15 PM EDT Result [facility] POINT OF CARE TEST ENTER/ EDIT ORDERABLES Final Result * POCT COVID-19 Ag [facility]od ID NOW (03/02/2025 3:13 PM EDT) [facility] Coronavirus Antigen PCR Negative Negative, Indeterminate, None Detected, Invalid, Specimen unsatisfactory for evaluation, Weakly Positive, 2+ QC Media Lot # Comment:[id number] Lot# Expiration Date Comment:01/20/2026 Swab 03/02/2025 3:13 PM EDT Result [facility] POINT OF CARE TEST ENTER/ EDIT ORDERABLES Edited Result - Final * POCT ID NOW Rapid Strep A manually resulted (03/02/2025 3:12 PM EDT) [facility] Rapid Strep A Screen Negative Negative, None Detected QC Media Lot # Comment:[id number] Lot# Expiration Date Comment:05/28/2025 Swab 03/02/2025 3:12 PM EDT Result [facility] POINT OF CARE TEST ENTER/ EDIT ORDERABLES Final Result * T-SPOT??.TB (03/02/2025 3:09 PM EDT) [facility] T Spot TB Negative Negative [facility] Comment:A negative test resu lt does not exclude the possibilityof exposure to or infection with Mycobacteriumtuberculosis (M. tuberculosis). Patients with recentexposure to TB infected individuals exhibiting anegative T-SPOT.TB result should be considered forretesting within 6 weeks or if other relevant clinicalsymptoms indicate. Results from T-SPOT.TB testing mustbe used in conjunction with each individual'sepidemiological history, current medical status,and results of other diagnostic evaluations.The T-SPOT.TB test is qualitative and results arereported as positive, borderline, or negative, giventhat the test controls perform as expected. In linewith the Centers for Disease Control and Prevention's2010 recommendation to report quantitative measurementsalongside the qualitative result, the laboratoryprovides spot counts for informational purposes only.The T-SPOT.TB test should not be interpreted as aquantitative test. TS PANEL A 2 [facility] TS PANEL B 0 [facility] Negative Control Passed [facility] Positive Control Passed [facility] Comment:For additional infor bjorn, please refer tohttp://education.Forsitec/faq/LXX020(This link is being provided for informational/educational purposes only.)THIS TEST WAS PERFORMED AT:[facility] [address] [place] [address]CQXJRQRRUTH GRIMM MD,PHD 03/02/2025 3:09 PM EDT 03/02/2025 5:52 PM EDT [facility] LAB BLOOD ORDERABLES Shea l Result [facility] [address] [place] [address] [phone] * Ferritin (03/02/2025 3:09 PM EDT) Ferritin 11 10 - 122 ng/mL [facility] Blood Venous blood specimen / Unknown 03/02/2025 3:09 PM EDT 03/02/2025 5:52 PM EDT [facility] LAB BLOOD ORDERABLES Shea l Result Performing Organization Address City/[facility]/ZIP Co de Phone Number [facility] [address] [place] [address] [phone] * (ABNORMAL) Vitamin D, 25-Hydroxy, Total, Immunoassay (03/02/2025 3:09 PM EDT) Vitamin D 25-OH Total 27.1(L) >30 ng/mL [facility] Comment: Health Based Reference Values*< 20 ng/mL Brhwqosgx77-65 ng/mL Insufficient> 30 ng/mL Sufficient*Vernell SELLERS. N Engl J Med. 2007;357:266-280There is no well-established upper level of normal vitamin Dlevels. Some laboratories use 50 ng/mL as an upper limit ofnormal. However, toxicity is patient-dependent and may occurat any level. Careful correlation with the patient'spresentation is necessary and, if there is concern forvitamin D toxicity, treatment should be consideredirrespective of the serum level.Care must be taken in interpreting Vitamin D results fromdifferent laboratories and methodologies. Published datademonstrated that results from patients undergoinghemodialysis may show a negative bias when tested withvarious automated 25-OH vitamin D assays when compared toLC-MS/MS.When testing samples from patients whose predominant form ofVitamin D is Vitamin D2, such as patients receiving VitaminD2 supplementation, results that are subtherapeutic shouldbe confirmed with another method such as LC-MS/MS. Blood Venous blood specimen / Unknown 03/02/2025 3:09 PM EDT 03/02/2025 5:52 PM EDT [facility] LAB BLOOD ORDERABLES Shea l Result Performing Organization Address City/[facility]/ZIP Co de Phone Number [facility] [address] [place] [phone] * (ABNORMAL) Iron And Total Iron Binding Capacity (03/02/2025 3:09 PM EDT) Pathologist [facility] Iron 29(L) 30 - 160 mcg/dL [facility] Total Iron Binding Capacity 293 228 - 428 mcg/dL [facility] Percent Iron Saturation 10(L) 15 - 50 % [facility] Unsaturated Iron Binding 264 ug/dL [facility] Blood Venous blood specimen / Unknown 03/02/2025 3:09 PM EDT 03/02/2025 5:52 PM EDT [facility] LAB BLOOD ORDERABLES Shea l Result Performing Organization Address [facility]/ZIP Co de Phone Number [facility] [address] [place] [phone] * TSH W/Reflex to FT4 (03/02/2025 3:09 PM EDT) [facility] TSH reflex Free T4 1.20 0.32 - 4.0 uIU/mL [facility] Blood Venous blood specimen / Unknown 03/02/2025 3:09 PM EDT 03/02/2025 5:52 PM EDT [facility] LAB BLOOD ORDERABLES Shea l Result Performing Organization Address [facility] Co de Phone Number [facility] [address] [place] [phone] * (ABNORMAL) Basic Metabolic Panel (03/02/2025 3:09 PM EDT) [facility] Sodium 139 135 - 145 mmol/L [facility] Potassium 3.6 3.3 - 5.1 mmol/L [facility] Chloride 107 96 - 108 mmol/L [facility] Carbon Dioxide 25 22 - 29 mmol/L [facility] Anion Gap 11(L) 12 - 20 [facility] Urea Nitrogen (BUN) 9 9 - 16 mg/dL [facility] Creatinine, Serum 0.77 0.5 - 1.4 mg/dL [facility] Estimated Glomerular Filt Rate >60 [facility] Comment:Chronic Kidney Disea se: Estimated GFR < 60 mL/min/1.77s6Vqfcmm Kidney Disease: Estimated GFR < 15 mL/min/1.73m2 Glucose 83 60 - 115 mg/dL [facility] Calcium 8.7 8.4 - 10.2 mg/dL [facility] Blood Venous blood specimen / Unknown 03/02/2025 3:09 PM EDT 03/02/2025 5:52 PM EDT [facility] LAB BLOOD ORDERABLES Shea l Result [facility] [address] [place], [place] [phone] * (ABNORMAL) CBC auto differential (03/02/2025 3:09 PM EDT) White Blood Count 11.8(H) 4.8 - 10.8 X10*3/uL [facility] Red Blood Count 4.75 4.20 - 5.50 X10*6/uL [facility] Hemoglobin 11.3(L) 12.0 - 16.0 g/dl [facility] Hematocrit 35.7(L) 37.0 - 47.0 % [facility] Mean Corpuscular Volume 75.2(L) 80.0 - 98.0 fL [facility] Mean Corpuscular Hemoglobin 23.8(L) 27.0 - 33.0 pg [facility] Mean Corpuscular HGB Conc 31.7 31.0 - 35.0 g/dl [facility] Red Cell Distribution Width 15.2 11.0 - 16.0 % [facility] Platelet Count 451(H) 160 - 400 X10*3/uL [facility] Mean Platelet Volume 11.1 9.4 - 12.3 fL [facility] Neutrophils Percent Auto 64.2 45 - 73 % [facility] Imm Gran Pct Auto 0.7(H) 0.0 - 0.4 % [facility] Lymphocytes Percent Auto 25.9 20 - 40 % [facility] Monocytes Percent Auto 6.4 2 - 11 % [facility] Eosinophils Percent Auto 2.2 0 - 4 % [facility] Basophils Percent Auto 0.6 0 - 2 % [facility] NRBC Pct Auto 0.0 0.0 - 0.2 /100WBC [facility] Neutrophils Absolute Auto 7.6 2.0 - 8.3 x10*3/uL [facility] Imm Gran Abs Auto 0.08(H) 0.00 - 0.03 X10*3/uL [facility] Lymphocytes Absolute Auto 3.0 1.2 - 4.9 X10*3/uL [facility] Monocytes Absolute Auto 0.8 0.1 - 1.2 X10*3/uL [facility] Eosinophils Absolute Auto 0.3 0.0 - 0.4 X10*3/uL [facility] Basophils Absolute Auto 0.1 0.0 - 0.2 X10*3/uL [facility] NRBC Abs Auto 0.000 0.0 - 0.012 X10*3/uL [facility] Blood Venous blood specimen / Unknown 03/02/2025 3:09 PM EDT 03/02/2025 5:52 PM EDT Result [facility] LAB BLOOD ORDERABLES Shea l Result [facility] [address] [place] [phone] * Influenza B (ID NOW Rapid Molecular) (03/02/2025 3:07 PM EDT) Influenza B Negative Negative, Indeterminate [facility] QC Media Lot # [facility] Comment:[id number] Lot# Expiration Date [facility] Comment:07/29/2026 Swab 03/02/2025 3:[address] [facility] LEAD APPLIER POINT OF CARE TEST ENTER/ EDIT ORDERABLES Final Result Performing Organization Address [facility] Co de Phone Number [facility] [address] [place] [address] [phone] * Influenza A (ID NOW Rapid Molecular) (03/02/2025 2:59 PM EDT) Influenza A Negative Negative, Indeterminate [facility] QC Media Lot # [facility] Comment:[id number] Lot# Expiration Date [facility] Comment:07/29/2026 Swab 03/02/2025 2:59 PM EDT [facility] POINT OF CARE TEST ENTER/ EDIT ORDERABLES Final Result Performing Organization Address [facility] de Phone Number [facility] [address] [place] [phone] documented in this encounter Visit Diagnoses Diagnosis Fever, unspecified fever cause- Primary Chronic sinusitis, unspecified location Night sweats Generalized hyperhidrosis Fatigue, unspecified type Microcytic anemia Unspecified iron deficiency anemia Menorrhagia with regular cycle Vitamin D deficiency documented in this encounter Additional Health Concerns Assessment Noted Time PHQ-9 Depression Total Score: 11 025 11:29 AM EST documented as of this encounter Care Teams Covering And Lining Supervisor Relationship Specialty Start Date End Date Rodney Ordonez MD [address] [place] [phone] PCP - General Internal Medicine 01/25/19 Shahab Ricci Board Saw RunnerSnag Grinder 07/12/24 Shahab Ricci Board Saw RunnerSnag Grinder 12/29/24 documented as of this encounter
--- NOTE | 2025-03-07 11:08 | MHC.OFFVIS ---
Intake Visit Reasons: 200u Allergies No Known Allergies Allergy (Verified 02/28/25 07:59) HPI Comments Details: 34 yo woman with chronic migraine. She has was seen here once in 01/2023 as she had been seeing Dr. Husain in [place] and wanted to switch her care, but then returned back to Dr. Husain who retired in 2023 and she was back to this office. She has been treated with Botox every 3 months. Previous records revealed that she tried buproprion, topiramate, valproate. TCAs caused hives. She was here for botox treatment. She said that Botox worked very well for couple of months but during the third month of Botox, headaches came back and she was using Nurtec as needed. [facility] Medical History (Updated 03/07/25 @ 11:10 by Salvador John MD) Migraine Physical Exam Neuro Other: Mental Status: Alert and oriented to person, place, and time. Normal attention. Normal spontaneous speech, fluency, and comprehension. No obvious issues with mood and memory. Affect is appropriate. Cranial Nerves: CN II: Visual donato full to confrontation, visual acuity intact. CN III, IV, : Pupils equal, round, reactive to light and accommodation. Extraocular movements are normal. CN V: Facial sensation is normal. CN VII: Facial movements symmetrical. CN VIII: Hearing intact to bedside conversation is normal. CN IX, X: Palate elevates symmetrically. CN XI: Shoulder shrug and head turn symmetrical. CN XII: Tongue midline without atrophy or fasciculations. Extrapyramidal: Full facial expressions and blinking. No rigidity. Movements are appropriate with no tremor or abnormality. Speech: Normal; no dysarthria or tremor. Office Procedures Botulinum toxin Injection 59312 - Migraine Procedure code (CPT) selection complete Office Meds onabotulinumtoxinA 200 unit solution for injection Performing Provider: Salvador John MD Performing Location: [facility] Administered by: Salvador John MD on 03/07/25 13:22 Dose Route Admin Location Dispensed Lot Number Expiration Date [facility] Clinical Athletic Instructor 200 unit IM 200 units [id number] ALLERGAN/BOTOX Total Dispensed Waste 200 units 0 % Assessment & Plan Assessment & Plan (1) Migraine without aura: Comment: Meds tried: Topiramate, valproic acid, bupropion Beta blockers contraindicated due to asthma CT and MRI brain WO at [facility] 2018: WNL. Code(s): G43.009 - Migraine without aura, not intractable, without status migrainosus Category: Medical Qualifiers: Intractability: intractable Status migrainosus presence: without status migrainosus Qualified Code(s): G43.019 - Migraine without aura, intractable, without status migrainosus Plan Impression: Chronic intractable migraine w/o aura Rec: a: Continue Botox, 200 IU, as per protocol, done today b: Nurtec 75 mg a day as needed Orders: Orders AMB Botulinum toxin Injection - Patient Supplied N/C Today G43.019 - Migraine without aura, intractable, without status migrainosus AMB Botulinum toxin Injection Today G43.019 - Migraine without aura, intractable, without status migrainosus Medications: New onabotulinumtoxinA 200 units IM ONCE 1 ea 0RF migraine headache G43.019 - Migraine without aura, intractable, without status migrainosus rimegepant (Nurtec ODT) 75 mg orally one a day as needed; 10 tabs 2RF Coding Level of Care Code Est Pt Level 4 (58028) Diagnoses Intractable migraine without aura and without status migrainosus G43.019 Intractability: intractable Status migrainosus presence: without status migrainosus CPT Codes Botox Injection - Botox 3: 18751 - Migraine ([id number])
--- OUTSIDE RECORDS SUMMARY | 2025-03-07 13:24 | XMS_ITS | Clinical Summary ---
Author Organization [employer] Address [address] [place] [address] 7 [place] [address] Care Team Providers Care Coal Crusher Operator Name Role Phone Rodney Ordonez MD Primary Care Provider [phone] Allergies Active Allergy Reactions Criticality Noted Date [...] TABLET BY MOUTH DAILY IN THE EVENING 023 Active Botox 200 units injection 023 Active [...] rizatriptan (Maxalt) 10 MG tablet 023 Active Omeprazole 20 MG tablet delayed-release Indications:H. [...] 024 Active Sodium Fluoride 1.1 % cream [place] teeth for 2 minutes, morning and night. Spit, do not rinse. Do not eat or drink anything for 30 minutes following use. 112 g 3 025 Active ferrous sulfate (Fe Tabs) 325 (65 Fe) MG EC tabletIndicatio ns:Microcytic anemia Take 1 tablet (325 mg) by mouth with breakfast. Do not crush, chew, or split. 90 tablet 2 025 2025 Active cetirizine (ZyrTEC) 10 MG tablet Take 1 tablet by mouth in the morning. Active clarithromycin (Biaxin) 250 MG tablet Take [...] AREA THREE TIMES DAILY FOR 10 DAYS Active acetaminophen (Tylenol) 325 MG tabletIndicatio ns:Fever, unspecified fever cause,Chronic sinusitis, unspecified location Take 1 tablet (325 mg) by mouth every 6 (six) hours. 30 tablet Active diphenhydrAMINE (Benadryl Allergy) 25 MG capsuleIndicati ons:Chronic sinusitis, unspecified location Take 1 capsule (25 mg) by mouth if needed at bedtime for itching. 30 capsule 3 025 Active ferrous sulfate 325 (65 Fe) MG EC tabletIndicatio ns:Microcytic anemia,Menorrha ynes with regular cycle Take 1 tab orally twice a day 60 tablet 2 025 Active cholecalciferol (Vitamin D-3) 25 MCG (1000 UT) tabletIndicatio ns:Vitamin D deficiency Take 1 tablet (25 mcg) by mouth Once per day. 30 tablet 2 025 2024 Active acetaminophen (Tylenol) 325 MG tablet Take 1 tablet by mouth every 6 (six) hours. 2024 Discontinued(R eorder (will not trigger notification to Pharmacy)) ferrous sulfate 325 (65 Fe) MG EC tabletIndicatio ns:Menorrhagia with regular cycle,Microcyti c anemia Take 1 tab orally twice a day 60 tablet 2 024 2024 Discontinued(R eorder (will not trigger notification to Pharmacy)) cholecalciferol (Vitamin D-3) 1.25 MG (43042 UT) capsule Take 1 capsule by mouth every 7 (seven) days. 024 2024 Discontinued diphenhydrAMINE (Benadryl Allergy) 25 MG capsule Take [...] told to avoid NSAID/Aspirin until evaluated by elevator service technician. Will provide epipen. Hospital discharge follow-up 07/11/2022 Moderate persistent asthma 10/24/2021 Vitamin D deficiency 10/24/2021 Migraine 03/16/2019 Mild persistent asthma with allergic rhinitis Overview (10/09/2023): As per [facility] medical records Encounters Date Type Department Care Team Description 03/06/[address] [address] Rodney Ordonez MD Results 03/02/2025 2:15 PM EDT Office Visit [facility] [address] [place] [address] Jada Douglass CNP Fever, unspecified fever cause (Primary Dx); Chronic sinusitis, unspecified location; Night sweats; Fatigue, unspecified type; Microcytic anemia; Menorrhagia with regular cycle; Vitamin D deficiency 03/02/2025 Travel 03/02/2025 Telephone [facility] [address] [place] [address] Rodney Ordonez MD Chart prep 03/01/[address] [address] Rodney Ordonez MD Nurse Triage 02/13/2025 Patient Outreach [address] [address] Rodney Ordonez MD Care Coordination ([facility]/MARIA EUGENIA De Anda #4 RS missed assessment appt_closed ) 01/16/2025 Patient Outreach [address] [address] Rodney Ordonez MD Care Coordination ([facility]/RANJITH More, reschedule missed assessment_LVM) 01/09/2025 Patient Outreach [address] [address] Rodney Ordonez MD Care Coordination ([facility]/Megan More TC #2 RS missed assessment_lvm) 12/29/[address] [address] Rodney Ordonez MD Care Coordination (ICP Care Plan ) 12/29/2024 Patient Outreach [address] [address] Rodney Ordonez MD Care Coordination ([facility]/RANJITH More, attempt to RS assessment appt_lvm) 12/22/2024 Patient Outreach [facility] [address] [place] [address] Rodney Ordonez MD Care Coordination ([facility] initial assessment- LVM) 12/22/2024 Patient Outreach [address] [address] Rodney Ordonez MD Care Coordination ([facility]/MARIA EUGENIA De Anda sdoh assessment_lvm) 12/21/2024 Patient Outreach [address] [address] Rodney Ordonez MD Care Coordination ([facility]/Romy More, initial assessment appt reminder) 12/16/2024 Telephone [facility] [address] [place] [address] Rodney Ordonez MD Results 12/12/2024 Patient Outreach [facility] [address] [place] [address] Rodney Ordonez MD 12/06/2024 Patient Outreach [facility] [address] [place] [address] Rodney Ordonez MD 12/05/2024 11:00 AM EDT Office Visit [facility] [address] [place] [address] Rodney Ordonez MD Acute post-traumatic headache, not intractable (Primary Dx); Contusion of right upper extremity, initial encounter 12/05/2024 Telephone [facility] [address] [place] [address] Rodney Ordonez MD Lab Orders 12/05/2024 Travel from Last 3 Months Immunizations Immunization Administration [...] 9:45 AM EDT Office Visit [facility] [address] [place], [place] [phone] Rodney Ordonez MD [address] [place] [address] 03/24/2025 10:00 AM EDT Office Visit [facility] [address] [place], [place] [phone] Reinier Ordonez Health Maintenance Due Date Last [...] 3:12 PM EDT Fever, unspecified fever cause T-SPOT(R).TB Routine 03/02/2025 3:09 PM EDT Fever, unspecified fever cause Night sweats Fatigue, unspecified type FERRITIN Routine 03/02/2025 3:09 PM EDT Fever, unspecified fever cause Fatigue, unspecified type VITAMIN D,25-OH,TOTAL,IA Routine 03/02/2025 3:09 PM EDT Fever, unspecified fever cause Fatigue, unspecified type IRON AND TOTAL IRON BINDING CAPACITY Routine 03/02/2025 3:09 PM EDT Fever, unspecified fever cause Fatigue, unspecified type TSH W/REFLEX TO FT4 [...] Weakly Positive, 2+ QC Media Lot # Comment:[id number] Lot# Expiration Date Comment:04/20/2025 Urine 03/02/2025 3:15 PM EDT Result [facility] POINT OF CARE TEST ENTER/ EDIT ORDERABLES Final Result * POCT COVID-19 Ag Mcleod ID NOW (03/02/2025 3:13 PM EDT) [facility] Coronavirus Antigen PCR Negative Negative, Indeterminate, None Detected, Invalid, Specimen unsatisfactory for evaluation, Weakly Positive, 2+ QC Media Lot # Comment:[id number] Lot# Expiration Date Comment:01/20/2026 Swab 03/02/2025 3:13 PM EDT Result [facility] POINT OF CARE TEST ENTER/ EDIT ORDERABLES Edited Result - Final * POCT ID NOW Rapid Strep A manually resulted (03/02/2025 3:12 PM EDT) [facility] Rapid Strep A Screen Negative Negative, None Detected QC Media Lot # Comment:[id number] Lot# Expiration Date Comment:05/28/2025 Swab 03/02/2025 3:12 PM EDT Result [facility] POINT OF CARE TEST ENTER/ EDIT ORDERABLES Final Result * (ABNORMAL) Vitamin D, 25-Hydroxy, Total, Immunoassay (03/02/2025 3:09 PM EDT) [facility] Vitamin D 25-OH Total 27.1(L) >30 ng/mL [facility] Comment: Health Based Reference Values*< 20 ng/mL Uiwjwpaay42-93 ng/mL Insufficient> 30 ng/mL Sufficient*Vernell SELLERS. N [...] 3:09 PM EDT 03/02/2025 5:52 PM EDT Jada [facility] LAB BLOOD ORDERABLES Shea prado Result [facility] [address] [place] [phone] * T-SPOT??.TB (03/02/2025 3:09 PM EDT) T Spot TB Negative Negative [facility] Comment:A negative test resu lt does [...] as aquantitative test. TS PANEL A 2 [facility] TS PANEL B 0 [facility] Negative Control Passed [facility] Positive Control Passed [facility] Comment:For additional infor bjorn, please refer tohttp://education.Dial2Do/faq/GSG923(This link is being provided for informational/educational purposes only.)THIS TEST WAS PERFORMED AT:[id number] [place] [address]DXEJVELRUTH GRIMM MD,PHD 03/02/2025 3:09 PM EDT 03/02/2025 5:52 PM EDT [facility] LAB BLOOD ORDERABLES Shea l Result Performing Organization Address [facility]/ZIP Co de Phone Number [facility] [address] [place] [phone] * TSH W/Reflex to FT4 (03/02/2025 3:09 PM EDT) TSH reflex Free T4 1.20 0.32 - 4.0 uIU/mL [facility] Blood Venous blood specimen / Unknown 03/02/2025 3:09 PM EDT 03/02/2025 5:52 PM EDT [facility] LAB BLOOD ORDERABLES Shea l Result Performing Organization Address City/[facility]/ZIP Co de Phone Number [facility] [address] [place] [phone] * (ABNORMAL) CBC auto differential (03/02/2025 3:09 PM EDT) White Blood Count 11.8(H) 4.8 - 10.8 X10*3/uL [facility] Red Blood Count 4.75 4.20 - 5.50 X10*6/uL [facility] Hemoglobin 11.3(L) 12.0 - 16.0 g/dl [facility] Hematocrit 35.7(L) 37.0 - 47.0 % [facility] Mean Corpuscular Volume 75.2(L) 80.0 - 98.0 fL [facility] Mean Corpuscular Hemoglobin 23.8(L) 27.0 - 33.0 pg [facility] Mean Corpuscular HGB Conc 31.7 31.0 - 35.0 g/dl [facility] Red Cell Distribution Width 15.2 11.0 - 16.0 % [facility] Platelet Count 451(H) 160 - 400 X10*3/uL [facility] Mean Platelet Volume 11.1 9.4 - 12.3 fL [facility] Neutrophils Percent Auto 64.2 45 - 73 % [facility] Imm Gran Pct Auto 0.7(H) 0.0 - 0.4 % [facility] Lymphocytes Percent Auto 25.9 20 - 40 % [facility] Monocytes Percent Auto 6.4 2 - 11 % [facility] Eosinophils Percent Auto 2.2 0 - 4 % [facility] Basophils Percent Auto 0.6 0 - 2 % [facility] NRBC Pct Auto 0.0 0.0 - 0.2 /100WBC [facility] Neutrophils Absolute Auto 7.6 2.0 - 8.3 x10*3/uL [facility] Imm Gran Abs Auto 0.08(H) 0.00 - 0.03 X10*3/uL [facility] Lymphocytes Absolute Auto 3.0 1.2 - 4.9 X10*3/uL [facility] Monocytes Absolute Auto 0.8 0.1 - 1.2 X10*3/uL [facility] Eosinophils Absolute Auto 0.3 0.0 - 0.4 X10*3/uL [facility] Basophils Absolute Auto 0.1 0.0 - 0.2 X10*3/uL [facility] NRBC Abs Auto 0.000 0.0 - 0.012 X10*3/uL [facility] Blood Venous blood specimen / Unknown 03/02/2025 3:09 PM EDT 03/02/2025 5:52 PM EDT [facility] LAB BLOOD ORDERABLES Shea l Result Performing Organization Address [facility] Co de Phone Number [facility] [address] [place] [phone] * (ABNORMAL) Iron And Total Iron Binding Capacity (03/02/2025 3:09 PM EDT) Pathologist [facility] Iron 29(L) 30 - 160 mcg/dL [facility] Total Iron Binding Capacity 293 228 - 428 mcg/dL [facility] Percent Iron Saturation 10(L) 15 - 50 % [facility] Unsaturated Iron Binding 264 ug/dL [facility] Blood Venous blood specimen / Unknown 03/02/2025 3:09 PM EDT 03/02/2025 5:52 PM EDT [facility] LAB BLOOD ORDERABLES Shea l Result Performing Organization Address [facility] Co de Phone Number [facility] [address] [place] [phone] * Ferritin (03/02/2025 3:09 PM EDT) [facility] Ferritin 11 10 - 122 ng/mL [facility] Blood Venous blood specimen / Unknown 03/02/2025 3:09 PM EDT 03/02/2025 5:52 PM EDT [facility] LAB BLOOD ORDERABLES Shea l Result Performing Organization Address [facility] Co de Phone Number [facility] [address] [place] [phone] * (ABNORMAL) Basic Metabolic Panel (03/02/2025 3:09 PM EDT) [facility] Sodium 139 135 - 145 mmol/L [facility] Potassium 3.6 3.3 - 5.1 mmol/L [facility] Chloride 107 96 - 108 mmol/L [facility] Carbon Dioxide 25 22 - 29 mmol/L [facility] Anion Gap 11(L) 12 - 20 [facility] Urea Nitrogen (BUN) 9 9 - 16 mg/dL [facility] Creatinine, Serum 0.77 0.5 - 1.4 mg/dL [facility] Estimated Glomerular Filt Rate >60 [facility] Comment:Chronic Kidney Disea se: Estimated GFR < 60 mL/min/1.34a5Oiyofh Kidney Disease: Estimated GFR < 15 mL/min/1.73m2 Glucose 83 60 - 115 mg/dL [facility] Calcium 8.7 8.4 - 10.2 mg/dL [facility] Blood Venous blood specimen / Unknown 03/02/2025 3:09 PM EDT 03/02/2025 5:52 PM EDT [facility] LAB BLOOD ORDERABLES Shea l Result Performing Organization Address [facility]/ZIP Co de Phone Number [facility] [address] [place] [phone] * Influenza B (ID NOW Rapid Molecular) (03/02/2025 3:07 PM EDT) Influenza B Negative Negative, Indeterminate [facility] QC Media Lot # [facility] Comment:[id number] Lot# Expiration Date [facility] Comment:07/29/2026 Swab 03/02/2025 3:07 PM EDT [facility] POINT OF CARE TEST ENTER/ EDIT ORDERABLES Final Result Performing Organization Address [facility]/ZIP Co de Phone Number [facility] [address] [place] [phone] * Influenza A (ID NOW Rapid Molecular) (03/02/2025 2:59 PM EDT) Influenza A Negative Negative, Indeterminate [facility] QC Media Lot # [facility] Comment:[id number] Lot# Expiration Date [facility] Comment:07/29/2026 Swab 03/02/2025 2:59 PM EDT Jada Douglass CNP POINT OF CARE TEST ENTER/ EDIT ORDERABLES Final Result [facility] [address] [place] [phone] * CT Head w/o Contrast (12/13/2024) Anatomical Region Laterality Modality Head, Neck Computed Tomogra phy Rodney Ordonez MD IMG CT PROCEDURES Final Res ult * HIV-1/2 Antigen and Antibodies, Fourth Generation, with Reflexes (07/04/2024 10:05 AM EST) HIV AB/AG Nonreactive Nonreactive [facility] Comment:HIV-1 p24 Ag and/or HIV-1/HIV-2 Ab not detected.A test result that is nonreactive does not exclude thepossibility of exposure to or infection with HIV-1 and/orHIV-2. Nonreactive results in this assay for individualswith prior exposure to HIV-1 and/or HIV-2 may be due toantigen and antibody levels that are below the limit ofdetection of this assay.The [employer] HIV Ag/Ab Combo assay result andsupplemental assay results should be interpreted inconjunction with the patient's clinical presentation,history and other laboratory results. If the results areinconsistent with clinical evidence, additional testing issuggested to confirm the result. Blood Venous blood specimen / Unknown 07/04/2024 10:05 AM EST 07/04/2024 11:02 AM EST [facility] LAB BLOOD ORDERABLES Shea l Result [facility] [address] [place] [phone] * Hepatitis C Antibody with Reflex to HCV, RNA, Quantitative, Real-Time PCR (08/26/2023 11:57 AM EST) Hepatitis C Antibody Nonreactive Nonreactive [facility] Comment:Antibodies to HCV no t detected; does not exclude early acuteHCV infection. Blood Venous blood specimen / Unknown 08/26/2023 11:57 AM EST 08/26/2023 2:41 PM EST us Rodney Ordonez MD LAB BLOOD ORDERABLES Final Result [facility] [address] [place] [phone] * Thinprep TIS PAP And HPV mRNA E6/E7, CT/NG, TRICH (08/05/2022 12:00 AM EST) Clinical Information: RTN SCREEN [facility] LMP: NONE GIVEN [facility] Prev. PAP: NONE GIVEN [facility] Prev. BX: NONE GIVEN [facility] SOURCE: None given [facility] Statement Of Adequacy: [facility] Comment: Satisfactory for evaluation. Endocervical/transformation zone component present. Interpretation/Re sult: Negative for intraepithelial lesion or malignancy. [facility] COMMENT: This Pap test has been evaluated with computer assisted technology. [facility] Molding Machine Setter: [facility] Comment: WENDY KUMARI(ASCP) CT screening location: [address], [place] [address] Slide preparation performed at: [facility] [address] [address] CLIA No. [id number] (Always Message) [facility] Comment: EXPLANATORY NOTE: The Pap is [...] HPV nRNA E6/E7 Not Detected Not Detected [employer] Comment: Methodology: Release Coordinator-Mediated Amplification This assay detects E6/E7 viral messenger RNA (mRNA) from 14 high-risk HPV types (16,18,31,33,35,39,45,51,52,56,58,59,66,68). Cervical sources are required for HPV testing. If a vaginal source from a patient who has had a total hysterectomy with removal of cervix was submitted, please contact the testing laboratory for alternative testing options. For additional information, please refer to http://IDRI ([facility]).Dial2Do/faq/RYF679e8 (This link if provided for information/ educational purposes only.) Chlamydia trachomatis RNA, TMA, Urogenital NOT DETECTED NOT DETECTED [employer] Neisseria gonorrhoeae RNA, TMA, Urogenital NOT DETECTED NOT DETECTED [employer] (Always Message) [facility] Comment: The analytical performance characteristics of this assay, when used to test SurePath(TM) specimens have been determined by [facility]. The modifications have not been cleared or approved by the FDA. This assay has been validated pursuant to the CLIA regulations and is used for clinical purposes. For additional information, please refer to https://IDRI ([facility]).Dial2Do/faq/LHX680 (This link is being provided for information/ educational purposes only.) Trichomonas vaginalis, QL, TMA, PAP Vial NOT DETECTED NOT DETECTED [employer] Comment: The analytical performance characteristics of this assay have been determined by [facility]. The modifications have not been cleared or approved by the FDA. This assay has been validated pursuant to the CLIA regulations and is used for clinical purposes. For additional information, please refer to http://IDRI ([facility]).Dial2Do/ faq/Trichomonastma (This link is being provided for information/ educational purposes only.) 08/05/2022 08/06/2022 9:3 1 AM EST Narrative [facility] - 08/13/2022 9:22 AM EST FASTING: UNKNOWN Alla Ng CNM LAB PATHOLOGY ORDERABLES Final Result [facility] [address] [facility] [place] [address] [facility] [address] [facility], [address] [place] [address], [place] [address] [facility] [address] , ([address]) [place] [address] from Last 3 Months or Most Recently Relevant to Health Maintenance Insurance [facility] C3 DENTAL-[facility] MEDICAID STAND ADULT [employer] Care Teams Coal Crusher Operator Relationship Specialty Start Date End Date Rodney Ordonez MD [address] [place] [phone] PCP - General Internal Medicine 01/25/19 Shahab Ricci Customer Accounts AdvisorFloor Installer 07/12/24 Shahab Ricci Customer Accounts AdvisorFloor Installer 12/29/24
--- OUTSIDE RECORDS SUMMARY | 2025-03-07 13:24 | XMS_ITS | Encounter Summary ---
Author Organization [employer] Address [address] [facility] [address]t [place] [address] Care Team Providers Care Fisheries Technician Name Role Phone Rodney Ordonez MD Primary Care Provider Rubi Gibson RN Unavailable [phone] Jerri More Unavailable Encounter Details Date Type Department Care Team ([facility] st Contact Info) Description 05/16/2024 Orders Only [facility] [address] [place], [place] [phone] Provider, MD Jud Social History Tobacco Use [...] Visit [facility] [address] [place] [address] Rodney Ordonez MD [address] [place] [address] 03/24/2025 10:00 AM EDT Office Visit [facility] [address] [place] [address] Reinier Ordonez documented as of this encounter [...] documented as of this encounter Care Teams Fisheries Technician Relationship Specialty Start Date End Date Rodney Ordonez MD [address] [place] [address] PCP - General Internal Medicine 01/25/19 Rubi Gibson RN [address] [place] [phone] Registered Nurse Family Medicine 11/28/24 02/13/25 Jerri More 11/28/24 02/13/25 Shahab Ricci Hand Method Lasting Machine OperatorTimber Framer Helper 07/12/24 Shahab Ricci Hand Method Lasting Machine OperatorTimber Framer Helper 12/29/24 documented as of this encounter
--- OUTSIDE RECORDS SUMMARY | 2025-03-07 13:24 | XMS_ITS | Encounter Summary ---
Author Organization [employer] Address [address] [facility] [address] [place] [address] Care Team Providers Care Materials Buyer Name Role Phone Rodney Ordonez MD Primary Care Provider Rubi Gibson RN Unavailable [phone] Jerri More Unavailable Encounter Details Date Type Department Care Team (Late st Contact Info) Description 09/01/2024 Orders Only [facility] [address] [place] [address] Rodney Ordonez MD [address] [place], [place] [phone] Microcytic anemia Social History Tobacco Use Types [...] 9:45 AM EDT Office Visit [facility] [address] [place] [address] Rodney Ordonez MD [address] [place], [place] [phone] 03/24/2025 10:00 AM EDT Office Visit [facility] [address] [place] [address] Reinier Ordonez documented as of this encounter Visit Diagnoses Diagnosis Microcytic anemia Unspecified iron deficiency anemia documented in this encounter Additional Health Concerns Assessment Noted Time PHQ-9 Depression Total Score: 11 025 11:29 AM EST documented as of this encounter Care Teams Materials Buyer Relationship Specialty Start Date End Date Rodney Ordonez MD [address] [place] [address] PCP - General Internal Medicine 01/25/19 Rubi Gibson RN [address] [place] [address] Registered Nurse Family Medicine 11/28/24 02/13/25 Jerri More 11/28/24 02/13/25 Shahab Ricci Assistant Infant TeacherDecator Operator 07/12/24 Shahab Ricci Assistant Infant TeacherDecator Operator 12/29/24 documented as of this encounter
--- OUTSIDE RECORDS SUMMARY | 2025-03-07 13:24 | XMS_ITS | Encounter Summary ---
Author Organization [employer] Address [address] [facility] 7 [place] [address] Care Team Providers Care Stretch Machine Operator Name Role Phone Rodney Ordonez MD Primary Care Provider Rubi Gibson RN Unavailable [phone] Jerri More Unavailable Reason for Visit * Reason Onset Date Comments Lab Orders 12/05/2024 Encounter Details Date Type Department Care Team (Late st Contact Info) Description 12/05/2024 Telephone [facility] MEDICINE [address] [place] [address] Rodney Ordonez MD [address] [place] [address] Lab Orders Social History Tobacco Use Types [...] Upcoming Encounters Date Type Department Care Team ([facility] st Contact Info) Description 03/09/2025 9:45 AM EDT Office Visit [facility] MED & PEDS [address] [place], [place] [phone] Rodney Ordonez MD [address] [place], [place] [phone] 03/24/2025 10:00 AM EDT Office Visit [facility] CHC ADULT DENTAL [address] [place] [address] Reinier Ordonez documented as of this encounter Visit Diagnoses Not on filedocumented in this encounter Additional Health Concerns Assessment Noted Time PHQ-9 Depression Total Score: 11 025 11:29 AM EST documented as of this encounter Care Teams Stretch Machine Operator Relationship Specialty Start Date End Date Rodney Ordonez MD [address] [place] [address] PCP - General Internal Medicine 01/25/19 Rubi Gibson RN 505 [place] [address] Registered Nurse Family Medicine 11/28/24 02/13/25 Jerri More 11/28/24 02/13/25 Shahab Ricci Die InspectorPlumbing Technician 07/12/24 Shahab Ricci Die InspectorPlumbing Technician 12/29/24 documented as of this encounter
--- OUTSIDE RECORDS SUMMARY | 2025-03-07 13:24 | XMS_ITS | Encounter Summary ---
Author Organization [employer] Address [address] [place] [address] [address] [address] Care Team Providers Care Pegger Dobby Looms Name Role Phone Rodney Ordonez MD Primary Care Provider Rubi Gibson RN Unavailable [phone] Jerri More Unavailable Reason for Visit * Reason Onset Date Comments Nurse Triage 04/05/2024 Encounter Details Date Type Department Care Team ([facility] st Contact Info) Description 04/05/2024 Telephone [facility] CHC MED & PEDS [address] [place], [place] [phone] Rodney Ordonez MD [address] [place], [place] [phone] Nurse Triage Social History Tobacco Use Types [...] 04/05/2024 12:11 PM EDT Triage call with [facility] [place] [employer] [place] [id number] Pt reports a development of acne over face, cheeks, chest and back. Pt has not had this before. Pt reports itchiness that is severe at times. Pt reports white heads, black heads and red areas and they are big pimples . Pt is not applying anything to the area. Pt is texted handout regarding home care for mild acne in pasht[place] and confirms receiving this. ASK apt with [...] occur - Your teen becomes worse Acne (Romanian) handout sent to [phone] * Telephone Encounter - Kassy Smiley - [...] 9:45 AM EDT Office Visit [facility] MED & PEDS [address] [place] [phone] Rodney Ordonez MD 505 [place] [address] 03/24/2025 10:00 AM EDT Office Visit [facility] ADULT DENTAL [address] [place] [address] Reinier Ordonez documented as of this encounter Visit Diagnoses Not on filedocumented in this encounter Additional Health Concerns Assessment Noted Time PHQ-9 Depression Total Score: 16 024 10:56 AM EST documented as of this encounter Care Teams Pegger Dobby Looms Relationship Specialty Start Date End Date Rodney Ordonez MD [address] [place] [address] PCP - General Internal Medicine 01/25/19 Rubi Gibson RN [address] [place] [address] Registered Nurse Family Medicine 11/28/24 02/13/25 Jerri More 11/28/24 02/13/25 Shahab Ricci Rope Silica Machine OperatorSystem Support Specialist 07/12/24 Shahab Ricci Rope Silica Machine OperatorSystem Support Specialist 12/29/24 documented as of this encounter
--- OUTSIDE RECORDS SUMMARY | 2025-03-07 13:24 | XMS_ITS | Encounter Summary ---
Author Organization [employer] Address [address] [place] [address] Care Team Providers Care Plant Physiology Teacher Name Role Phone Rodney Ordonez MD Primary Care Provider [phone] Reason for Visit * Reason Onset Date Comments Chart prep 03/02/2025 Encounter Details Date Type Department Care Team ([facility] st Contact Info) Description 03/02/2025 Telephone [facility] CHC MED & PEDS [address] [place] [address] Rodney Ordonez MD [address] [place] [address] Chart prep Social History Tobacco Use Types [...] 9:45 AM EDT Office Visit [facility] MED & PEDS 505 [facility] [place] [address] Rodney Ordonez MD 505 [place] [address] 03/24/2025 10:00 AM EDT Office Visit [facility] CHC ADULT DENTAL [address] [place] [address] Reinier Ordonez documented as of this encounter Visit Diagnoses Not on filedocumented in this encounter Additional Health Concerns Assessment Noted Time PHQ-9 Depression Total Score: 11 08/31/ 025 11:29 AM EST documented as of this encounter Care Teams Plant Physiology Teacher Relationship Specialty Start Date End Date Rodney Ordonez MD [address] [place] [address] PCP - General Internal Medicine 01/25/19 Shahab Ricci Centerless Grinder TenderCorrections Specialist 07/12/24 Shahab Ricci Centerless Grinder TenderCorrections Specialist 12/29/24 documented as of this encounter
--- OUTSIDE RECORDS SUMMARY | 2025-03-07 13:24 | XMS_ITS | Encounter Summary ---
Author Organization [employer] Address [address] [facility] 7t [place] [address] Care Team Providers Care Candy Dipper Name Role Phone Rodney Ordonez MD Primary Care Provider [phone] Encounter Details Date Type Department Care Team [facility] [address] [place] [address] Rodney Ordonez MD [address] [place] [address] 03/24/2025 10:00 AM EDT Office Visit [facility] ADULT DENTAL 505 [place] [address] Reinier Ordonez documented as of this encounter Visit Diagnoses Not on filedocumented in this encounter Additional Health Concerns Assessment Noted Time PHQ-9 Depression Total Score: 11 025 11:29 AM EST documented as of this encounter Care Teams Candy Dipper Relationship Specialty Start Date End Date Rodney Ordonez MD [address] [place] [address] PCP - General Internal Medicine 01/25/19 Shahab Ricci Screen PrinterSales And Marketing Coordinator 07/12/24 Shahab Ricci Screen PrinterSales And Marketing Coordinator 12/29/24 documented as of this encounter
--- OUTSIDE RECORDS SUMMARY | 2025-03-07 13:24 | XMS_ITS | Encounter Summary ---
Author Organization [employer] Address [address] [place] [address] [address] [place] [address] Care Team Providers Care Ultra Sound Technician Name Role Phone Rodney Ordonez MD Primary Care Provider [phone] Rubi Gibson RN Unavailable [phone] Jerri More Unavailable Encounter Details Date Type Department Care Team ([facility] st Contact Info) Description 09/22/2022 Abstract [facility] MED & PEDS [address] [place], [place] [phone] Rodney Ordonez MD [address] [place] [address] Social History Tobacco Use Types Packs/Day Years [...] Description 03/09/2025 9:45 AM EDT Office Visit [facility] MED & PEDS [address] [place] [address] Rodney Ordonez MD [address] [place] [address] 03/24/2025 10:00 AM EDT Office Visit [facility] ADULT DENTAL [address] [place] [address] Reinier Ordonez documented as of this encounter Visit Diagnoses Not on filedocumented in this encounter Additional Health Concerns Assessment Noted Time PHQ-9 Depression Total Score: 17 023 11:37 AM EST documented as of this encounter Care Teams Ultra Sound Technician Relationship Specialty Start Date End Date Rodney Ordonez MD [address] [place] [address] PCP - General Internal Medicine 01/25/19 Rubi Gibson RN [address] [place] [address] Registered Nurse Family Medicine 11/28/24 02/13/25 Jerri More 11/28/24 02/13/25 Shahab Ricci Principal ArchaeologistGrain Broker And Market Operator 07/12/24 Shahab Ricci Principal ArchaeologistGrain Broker And Market Operator 12/29/24 documented as of this encounter
--- OUTSIDE RECORDS SUMMARY | 2025-03-07 13:24 | XMS_ITS | Clinical Summary ---
Author Organization [facility] it Address [address] [place] [address] Care Team Providers Care Keg Filler Name Role Phone Rodney Ordonez MD Primary Care Provider [phone] Surgical History Surgery Date Site/Laterality Comments TUBAL [...] age to complete this topic Care Teams Keg Filler Relationship Specialty Start Date End Date Rodney Ordonez MD [address] [place] [address] PCP - General Internal Medicine 05/08/20
--- OUTSIDE RECORDS SUMMARY | 2025-03-07 13:24 | XMS_ITS | Encounter Summary ---
Author Organization [employer] Address [address] [address] Care Team Providers Care Winding Department Supervisor Name Role Phone Rodney Ordonez MD Primary Care Provider [phone] Reason for Visit * Reason Onset Date Comments Results 03/06/2025 Encounter Details Date Type Department Care Team ([facility] st Contact Info) Description 03/06/2025 Telephone [facility] MEDICINE [address] [place] [address] Rodney Ordonez MD [address] [place] [address] Results Social History Tobacco Use Types Packs/Day Years [...] encounter Miscellaneous Notes * Telephone Encounter - Jada Douglass CNP - 03/07/2025 1:22 PM EDT Refills sent, thank you! * Telephone Encounter - Rashida Cerna RN - 03/07/2025 9:45 AM EDT Images from the original note were not included. TC placed to pt via [employer] academic director (Mor ID#[id number]) to inform and advise of below provider message.Advised pt labs consistent with iron deficiency anemia and vitamin D defiency. Advised pt labs otherwise normal. Pt reports they need refills on iron supplement and vitamin D supplement. Advised pt message to be sent to provider. Pt verbalized understanding. Pt reports they are still experiencing fevers that come and go and dizziness. Pt reports their dizziness has worsened since being seen by provider. Pt reports a little congestion and sore throat, but reports these symptoms have improved. Ptdenies chest pain and SOB. Pt endorses blurry vision associated with migraines. Advised pt due to wo rsening symptoms, provider recommends evaluation in [facility]. Pt reports they are unable to come to [facility] today. Advised pt of [facility] normal and extended hours. Pt verbalized understanding. Message forwarded to provider for review. Jada Douglass CNP to [facility] Med & Peds Nurses Rashida Cerna RN (Selected Message) AW 03/07/25 9:07 AM Note Good morning please let patient know labs consistent with iron deficiency anemia and vitamin D defiency. Pt should already be on iron supplement and vitamin D supplement based on chart review, pleaselet me know if she needs refills. Otherwise labs unremarkable. Pt was seen for viral upper respiratory illness last week, please also ask how she is feeling and if symptoms have worsened please recommend evaluation in walk in clinic. Thank you! * Telephone Encounter - Jada Douglass CNP - 03/07/2025 9:07 AM EDT Good morning please let patient know labs consistent with iron deficiency anemia and vitamin D defiency. Pt should already be on iron supplement and vitamin D supplement based on chart review, pleaselet me know if she needs refills. Otherwise labs unremarkable. Pt was seen for viral upper respiratory illness last week, please also ask how she is feeling and if symptoms have worsened please recommend evaluation in walk in clinic. Thank you! * Telephone Encounter - Deena Verma - 03/06/2025 11:28 AM EDT TC from pt requesting call back regarding Results. Type of results: Blood Date when done: 01/31 Facility: [facility] Contact pt at [phone] documented in this encounter Plan of Treatment Upcoming Encounters Date Type Department Care Team (Late st Contact Info) Description 03/09/2025 9:45 AM EDT Office Visit [facility] MED & PEDS [address] [place] [address] Rodney Ordonez MD 505 [place] [address] 03/24/2025 10:00 AM EDT Office Visit [facility] ADULT DENTAL [address] [place] [address] Reinier Ordonez documented as of this encounter Visit Diagnoses Not on filedocumented in this encounter Additional Health Concerns Assessment Noted Time PHQ-9 Depression Total Score: 11 025 11:29 AM EST documented as of this encounter Care Teams Winding Department Supervisor Relationship Specialty Start Date End Date Rodney Ordonez MD [address] [place] [address] PCP - General Internal Medicine 01/25/19 Shahab Ricci Workers Compensation SpecialistInventory Control Manager 07/12/24 Shahab Ricci Workers Compensation SpecialistInventory Control Manager 12/29/24 documented as of this encounter
--- OUTSIDE RECORDS SUMMARY | 2025-03-07 13:24 | XMS_ITS | Encounter Summary ---
Author Organization [employer] Address [address] [place] [address] 7 [place] [address] Care Team Providers Care Curriculum Designer Name Role Phone Rodney Ordonez MD Primary Care Provider Rubi Gibson RN Unavailable [phone] Jerri More Unavailable Encounter Details Date Type Department Care Team ([facility] st Contact Info) Description 09/07/2023 Orders Only [facility] CHC MED & PEDS [address] [place], [place] [phone] Rodney Ordonez MD [address] [place], [place] [phone] H. pylori infection (Primary Dx) Social History [...] 03/09/2025 9:45 AM EDT Office Visit [facility] MED & PEDS [address] [place] [address] Rodney Ordonez MD [address] [place] [address] 03/24/2025 10:00 AM EDT Office Visit [facility] ADULT DENTAL [address] [place] [address] Reinier Ordonez documented as of this encounter Visit Diagnoses Diagnosis H. pylori infection- Primary Helicobacter pylori (H. pylori) documented in this encounter Additional Health Concerns Assessment Noted Time PHQ-9 Depression Total Score: 16 024 10:56 AM EST documented as of this encounter Care Teams Curriculum Designer Relationship Specialty Start Date End Date Rodney Ordonez MD [address] [place] [address] PCP - General Internal Medicine 01/25/19 Rubi Gibson RN [address] [place] [address] Registered Nurse Family Medicine 11/28/24 02/13/25 Jerri More 11/28/24 02/13/25 Shahab Ricci Object Oriented DeveloperRelief Salesperson 07/12/24 Shahab Ricci Object Oriented DeveloperRelief Salesperson 12/29/24 documented as of this encounter
--- OUTSIDE RECORDS SUMMARY | 2025-03-07 13:24 | XMS_ITS | Encounter Summary ---
Author Organization [employer] Address [address] [place] [address] Care Team Providers Care Roll Forger Name Role Phone Rodney Ordonez MD Primary Care Provider Rubi Gibson RN Unavailable [phone] Jerri More Unavailable Reason for Referral * Consultation (Routine) - Closed Specialty Diagnoses / Procedures Referred By Contac t Referred To Contact Neurology Diagnoses Chronic migraine without aura with status migrainosus, not intractable Rodney Ordonez MD [address] [place] [address] Phone: tel: fax: Salvador John MD [address] [place] [address] Phone: tel: fax: Referral ID Status Reason Start Date Expiration Date V isits Requested Visits Authorized [id number] Closed Specialty Services Required 02/17/2024 02/16/2025 1 1 Encounter Details Date Type Department Care Team (Late st Contact Info) Description 02/17/2024 Orders Only [facility] [address] [place] [address] Rodney Ordonez MD [address] [place], [place] [phone] Chronic migraine without aura with status migrainosus, [...] Upcoming Encounters Date Type Department Care Team ([facility] st Contact Info) Description 03/09/2025 9:45 AM EDT Office Visit [facility] CHC MED & PEDS [address] [place] [address] Rodney Ordonez MD [address] [place], [place] [phone] 03/24/2025 10:00 AM EDT Office Visit [facility] CHC ADULT DENTAL [address] [place] [address] Reinier Ordonez Scheduled Referrals Name Type Priority [...] documented as of this encounter Care Teams Roll Forger Relationship Specialty Start Date End Date Rodney Ordonez MD [address] [place] [address] PCP - General Internal Medicine 01/25/19 Rubi Gibson RN [address] [place] [address] Registered Nurse Family Medicine 11/28/24 02/13/25 Jerri More 11/28/24 02/13/25 Shahab Ricci Acoustic Warfare AnalystAsphalt Surface Heater Operator 07/12/24 Shahab Ricci Acoustic Warfare AnalystAsphalt Surface Heater Operator 12/29/24 documented as of this encounter
--- OUTSIDE RECORDS SUMMARY | 2025-03-07 13:24 | XMS_ITS | Encounter Summary ---
Author Organization [employer] Address 75 [facility] 7 [place] [address] Care Team Providers Care Scale And Skip Car Operator Name Role Phone Rodney Ordonez MD Primary Care Provider Rubi Gibson RN Unavailable [phone] Jerri More Unavailable Encounter Details Date Type Department Care Team (Late st Contact Info) Description 09/17/2023 Telephone [facility] MEDICINE [address] [place] [address] Rodney Ordonez MD [address] [place] [address] Social History Tobacco Use Types Packs/Day Years [...] PM EDT TC placed to patient via [employer] Furnace Roaster x 2 regarding message below. Patient didn't answer. TCplaced to patient without wildlife rehabilitator line. Patient answered. Explained message below in very basicSpanish, and patient still confused. Asked patient for permission to call back with wildlife rehabilitator line and patient agreed. TC placed again to patient via [employer] Movement Furnace Roaster. Explained message above and patient states she does have extremely painful periods and wants to consider hormonal treatment or next steps. Asked for next appointment at [facility] and scheduled for 09/29/23 @ [...] note were not included. MD Ofe López [facility] Med & Peds Nurses Caller: Unspecified (4 days ago, 11:50 AM) Rizatriptan sent to pt's pharmacy. Regarding the referral to Ophthalmology, Ms Cynthia Nuno can herself call an urgent care in the area to make her appointment herself, no referral isneeded from the office. TC placed to patient via [employer] Furnace Roaster regarding above message. Patient states that she didn't pick up worker this medication from [facility] because she states she is allergic to this medication. Instead, she is taking Nurtec for migraines, which was prescribed by her neurologist. She was informed about the ophthalmology referral not being necessary, and she states she will try to make an appointment with the [facility]. Routing to PCP so he is [...] Description 03/09/2025 9:45 AM EDT Office Visit [facility] MED & PEDS [address] [place] [address] Rodney Ordonez MD [address] [place] [address] 03/24/2025 10:00 AM EDT Office Visit [facility] ADULT DENTAL [address] [place] [address] Reinier Ordonez documented as of this encounter Visit Diagnoses Not on filedocumented in this encounter Additional Health Concerns Assessment Noted Time PHQ-9 Depression Total Score: 16 024 10:56 AM EST documented as of this encounter Care Teams Scale And Skip Car Operator Relationship Specialty Start Date End Date Rodney Ordonez MD [address] [place] [address] PCP - General Internal Medicine 01/25/19 Rubi Gibson RN 505 [place] [address] Registered Nurse Family Medicine 11/28/24 02/13/25 Jerri More 11/28/24 02/13/25 Shahab Ricci Cellular Phone RepairerSide Door Man 07/12/24 Shahab Ricci Cellular Phone RepairerSide Door Man 12/29/24 documented as of this encounter
--- OUTSIDE RECORDS SUMMARY | 2025-03-07 13:24 | XMS_ITS | Encounter Summary ---
Author Organization [employer] Address [address] [facility] 7 [place] [address] Care Team Providers Care Produce Production Team Member Name Role Phone Rodney Ordonez MD Primary Care Provider Rubi Gibson RN Unavailable [phone] Jerri More Unavailable Reason for Visit * Reason Onset Date Comments ER Follow-up 12/29/2023 Encounter Details Date Type Department Care Team (Late st Contact Info) Description 12/29/2023 Telephone [facility] MEDICINE [address] [place] [address] Rodney Ordonez MD [address] [place] [address] ER Follow-up Social History Tobacco Use Types [...] 9:30 AM EDT Tc to pt using [employer] [place] Circulation Crew Leader [place], [place] [id number] for ED follow-up. Pt repports feeling better, [...] ED visit on : Date: 12/27 Hospital: [facility] Seen for: High Blood Pressure , Dizziness and migraine Patient advised will forward to team nurse for follow up documented in this encounter Plan of Treatment Upcoming Encounters Date Type Department Care Team (Late st Contact Info) Description 03/09/2025 9:45 AM EDT Office Visit [facility] MED & PEDS [address] [place] [address] Rodney Ordonez MD [address] [place] [address] 03/24/2025 10:00 AM EDT Office Visit [facility] ADULT DENTAL [address] [place] [address] Reinier Ordonez documented as of this encounter Visit Diagnoses Not on filedocumented in this encounter Additional Health Concerns Assessment Noted Time PHQ-9 Depression Total Score: 16 024 10:56 AM EST documented as of this encounter Care Teams Produce Production Team Member Relationship Specialty Start Date End Date Rodney Ordonez MD [address] [place] [address] PCP - General Internal Medicine 01/25/19 Rubi Gibson RN [address] [place] [address] Registered Nurse Family Medicine 11/28/24 02/13/25 Jerri More 11/28/24 02/13/25 Shahab Ricci Medical Numerical Control OperatorBehavioral Analyst 07/12/24 Shahab Ricci Medical Numerical Control OperatorBehavioral Analyst 12/29/24 documented as of this encounter
--- OUTSIDE RECORDS SUMMARY | 2025-03-07 13:24 | XMS_ITS | Encounter Summary ---
Author Organization [facility] [employer] Address [address] [place] [address] 7 [place] [address] Care Team Providers Care Humane Agent Name Role Phone Rodney Ordonez MD Primary Care Provider Rubi Gibson RN Unavailable [phone] Jerri More Unavailable Encounter Details Date Type Department Care Team ([facility] st Contact Info) Description 06/10/2024 Orders Only [facility] CHC MED & PEDS [address] [place], [place] [phone] Rodney Ordonez MD [address] [place], [place] [phone] Neck muscle spasm (Primary Dx) Social History [...] 9:45 AM EDT Office Visit [facility] MED & PEDS [address] [place] [address] Rodney Ordonez MD [address] [place] [address] 03/24/2025 10:00 AM EDT Office Visit [facility] ADULT DENTAL [address] [place] [address] Reinier Ordonez documented as of this encounter Visit Diagnoses Diagnosis Neck muscle spasm- Primary documented in this encounter Additional Health Concerns Assessment Noted Time PHQ-9 Depression Total Score: 16 024 10:56 AM EST documented as of this encounter Care Teams Humane Agent Relationship Specialty Start Date End Date Rodney Ordonez MD [address] [place] [address] PCP - General Internal Medicine 01/25/19 Rubi Gibson RN [address] [place] [address] Registered Nurse Family Medicine 11/28/24 02/13/25 Jerri More 11/28/24 02/13/25 Shahab Ricci Datapower DeveloperClinical Research Assistant 07/12/24 Shahab Ricci Datapower DeveloperClinical Research Assistant 12/29/24 documented as of this encounter
--- OUTSIDE RECORDS SUMMARY | 2025-03-07 13:24 | XMS_ITS | Encounter Summary ---
Author Organization [employer] Address [address] [facility] [place] [address] Care Team Providers Care Instructional Writer Name Role Phone Rodney Ordonez MD Primary Care Provider Rubi Gibson RN Unavailable [phone] Jerri More Unavailable Reason for Visit * Reason Onset Date Comments Referral 09/03/2023 Encounter Details Date Type Department Care Team (Late st Contact Info) Description 09/03/2023 Telephone [facility] MEDICINE [address] [place] [address] Rodney Ordonez MD [address] [place], [place] [phone] Referral Social History Tobacco Use Types Packs/Day [...] regards to pt requesting a referral for district engineer. Ptwas advised after ED visit 08/31/23 from [facility] to be seen with district engineer due to being diagnosed with Anemia. Please contact pt at [phone] If any questions you can contact Shahab at [phone]. documented in this encounter Plan of Treatment Upcoming Encounters Date Type Department Care Team (Late st Contact Info) Description 03/09/2025 9:45 AM EDT Office Visit [facility] MED & PEDS [address] [place] [address] Rodney Ordonez MD [address] [place] [address] 03/24/2025 10:00 AM EDT Office Visit [facility] ADULT DENTAL [address] [place] [address] Reinier Ordonez documented as of this encounter Visit Diagnoses Not on filedocumented in this encounter Additional Health Concerns Assessment Noted Time PHQ-9 Depression Total Score: 16 024 10:56 AM EST documented as of this encounter Care Teams Instructional Writer Relationship Specialty Start Date End Date Rodney Ordonez MD [address] [place] [address] PCP - General Internal Medicine 01/25/19 Rubi Gibson RN [address] [place] [address] Registered Nurse Family Medicine 11/28/24 02/13/25 Jerri More 11/28/24 02/13/25 Shahab Ricci Research Test Engine OperatorRigging Foreman 07/12/24 Shahab Ricci Research Test Engine OperatorRigging Foreman 12/29/24 documented as of this encounter
--- OUTSIDE RECORDS SUMMARY | 2025-03-07 13:24 | XMS_ITS | Clinical Summary ---
Author Organization [facility] Address [address] [place] [address] Care Team Providers Care Steel Fabricator Name Role Phone Zhane Luna DIRECTOR GRAPHICS Primary Care Provider [phone] Source Comments PLEASE NOTE, if this patient [...] sprayIndications: Mild persistent asthma with allergic rhinitis (HHS-HCC) Place 1 [place] into the nostril(s) once daily. 16 g 2 6 Active montelukast (SINGULAIR) 10 mg tabletIndications :Mild persistent asthma without complication (HHS-HCC) Take 1 Tab by mouth nightly at bedtime. 30 Tab 5 6 Active budesonide-formot madelyn (SYMBICORT) 160-4.5 mcg/actuation inhalerIndication s:Mild persistent asthma without complication (HHS-HCC) Inhale 2 Puffs into the lungs 2 (two) times daily 1 Inhaler 3 7 Active albuterol sulfate 90 mcg/actuation inhalerIndication s:Mild persistent asthma without complication (HHS-HCC) Inhale 2 Puffs into the lungs every [...] Date Mild persistent asthma with allergic rhinitis (H HS-HCC) 11/26/2015 Overview (11/26/2015): As per [facility] Immune to rubella 11/26/2015 Overview (11/26/2015): As Per labs done in [place] 09/24/13 Immunizations Immunization Administration Dates Next Due Flu, Preservative Free 06/07/2018,06/03/2017 Hep B, Adult/Adol (EZUUSAU-Z-YPMNQ/RECOMBIVAX-AD ULT) 05/28/2016,04/28/2016 INFLUENZA, SEASONAL, INJECTABLE 04/03/2016 PNEUMOCOCCAL POLYSACCHARIDE PPV23 (Pneumovax 23) 04/14/2016 TDAP 06/07/2018 Family History Medical History [...] 96 11/03/2018 1:32 PM EDT Temperature 37 C (98.6 F) 11/03/2018 1:32 PM EDT Respiratory Rate 16 11/03/2018 1:32 PM EDT Oxygen Saturation 97% 10/13/2018 2:55 PM EDT Inhaled Oxygen Concentration - - Weight 70.3 kg (155 lb) 11/03/2018 1:32 PM EDT Height 150.8 cm (4' 11.37 ) 06/07/2018 9:[address] Body Mass Index 30.92 06/07/2018 9:41 AM EST Plan of Treatment Not on file Insurance [facility] Care Teams Steel Fabricator Relationship Specialty Start Date End Date Zhane Luna FNP [address] [place] [address] PCP - General Family Medicine, LEAD ESTHETICIAN 11/21/15
== END 2025-03-07 12:32 | disposition home or self-care (01) ==
LOC: HO.HSM 11:04
PROVIDERS: PCP Internal Medicine; Referring Provider Internal Medicine; Visit Provider Psychiatry & Neurology Neurology
DX: G43.019 Migraine without aura, intractable, without status migrainosus (principal)
CPT/HCPCS: 64615

== ENCOUNTER → 2025-03-07 11:03 | Outpatient (BNVA) | payer MEDICAID, SELFPAY | PROVIDERS: PCP Internal Medicine; Referring Provider Internal Medicine; Visit Provider Psychiatry & Neurology Neurology | DX: G43.719 Chronic migraine without aura, intractable, without status migrainosus (principal) | CPT/HCPCS: 64615; J0585 ==

== ENCOUNTER → 2025-05-15 15:00 | Outpatient (BNV) | payer OTHER, MEDICAID, SELFPAY | PROVIDERS: PCP Internal Medicine; Visit Provider Psychiatry & Neurology Neurology | DX: R20.2 Paresthesia of skin (principal) | CPT/HCPCS: 95886; 95910 ==

== ENCOUNTER 2025-05-15 15:24 | Outpatient (REF) | payer OTHER, MEDICAID, SELFPAY ==
--- NOTE | 2025-05-15 | EMG_ITS ---
Chief complaint: pain and numbness in right arm Reason for referral:R20.0, R20.2 Anesthesia of skin, Paraesthesia of skin of right arm Referred by: CHAPARRITA Bocanegra Procedure done: NCS and EMG of right upper extremity Right median and ulnar motor studies were performed with F responses. Right median and ulnar mixed sensory, median and lateral antecubital brachial sensory, in right radial sensory studies were performed. For comparison left antecubital brachial studies were also performed. Needle examination was performed. Findings: Motor distal latencies, amplitudes, and conduction velocities were normal. Sensory studies revealed similar pattern except lateral antecubital brachial studies which were not elicitable on both sides. Needle examination was normal. Impression: No evidence of entrapment neuropathy in right upper extremity or radiculopathy. [place] [id number] [facility]
--- OUTSIDE RECORDS SUMMARY | 2025-05-16 06:02 | XMS_ITS | Clinical Summary ---
Author Organization [facility] Address [address] [place] [address] Care Team Providers Care Varnish Finisher Name Role Phone Rodney Ordonez MD Primary Care Provider [phone] Surgical History Surgery Date Site/Laterality Comments TUBAL [...] Cervical Cancer Screening: P ap Smear 2011 HPV Vaccines (1 - 3-dose SCD M series) 2017 HIV Screening 06/07/2022 Hepatitis C Screening 06/07/2022 Social Influencers of Health Screening 06/07/2022 Depression Screening 06/29/2024 COVID-19 Vaccine ( - 2024-2 6 season) 2025 Influenza Vaccine (#1) 2025 DTaP,Tdap,and Td Vaccines (2 - Td or Tdap) 09/22/2028 09/22/2018 RSV Immunization Adult Patie nts (1 - 1-dose 75+ series) 2065 HIB Vaccines Aged Out No longer eligi [...] age to complete this topic Care Teams Varnish Finisher Relationship Specialty Start Date End Date Rodney Ordonez MD [address] [place] [address] PCP - General Internal Medicine 05/08/20
== END 2025-05-15 15:25 | disposition home or self-care (01) ==
LOC: HO.NEURO 15:24
PROVIDERS: PCP Internal Medicine; Visit Provider Registered Nurse
DX: R20.0 Anesthesia of skin (principal); R20.2 Paresthesia of skin; G89.29 Other chronic pain; M79.641 Pain in right hand
CPT/HCPCS: 95886; 95911

== ENCOUNTER 2025-06-13 07:21 | Outpatient (AMB) | payer OTHER, MEDICAID, SELFPAY ==
--- OUTSIDE RECORDS SUMMARY | 2025-06-13 07:23 | XMS_ITS | Encounter Summary ---
Author Organization [employer] Address 75 [facility] [address] [place] [address] Care Team Providers Care Supervisor Transferring And Boxing Name Role Phone Rodney Ordonez MD Primary Care Provider [phone] Rubi Gibson RN Unavailable Unavailable Jerri More Unavailable Samantha Nava Unavailable Samantha Nava Unavailable Encounter Details Date Type Department Care Team (Late st Contact Info) Description 09/01/2024 Orders Only [facility] MEDICINE [address] [place] [address] Rodney Ordonez MD [address] [place], [place] [phone] Microcytic anemia Social History Tobacco Use Types [...] Assessment Author Patient Health Questionnaire-2 Score 2 /11/2024 4:35 PM EST Tom Freysa * Little interest or pleasure in doing things Answer Date of Assessment Author Several days 09/01/2024 4:35 PM EST Tk T irsa * Feeling down, depressed, or hopeless Answer Date of Assessment Author Several days 09/01/2024 4:35 PM EST Tk T irsa * Trouble falling or staying asleep, or sleeping too much Answer Date of Assessment Author Nearly every day 09/01/2024 4:35 PM EST Tom Freysa * Feeling tired or having little energy Answer Date of Assessment Author More than half the days 09/01/2024 4:35 PM EST R ruth, Edilia * Poor appetite or overeating Answer Date of Assessment Author Several days 09/01/2024 4:35 PM EST Frey, T irsa * Feeling bad about yourself - or that you are a failure or have let yourself or your family down Answer Date of Assessment Author Not at all 09/01/2024 4:35 PM EST Tk T irsa * Trouble concentrating on things, such as reading the newspaper or watching television Answer Date of Assessment Author Nearly every day 09/01/2024 4:35 PM EST Frey, Edilia * Moving or speaking so slowly that [...] ntrol worrying 3 09/01/2024 4:37 PM EST Edilia Frey Worrying too much about different things 3 09/01/2024 4:37 PM EST Edilia Frey Trouble relaxing 1 09/01/2024 4:37 PM EST [facility] Edilia Being so restless that it is hard to sit still 3 09/01/2024 4:37 PM EST Tk Edilia Becoming easily annoyed or irritable 0 11/2024 4:37 PM EST Frey Edilia Feeling afraid as if somethi ng awful might happen 3 09/01/2024 4:37 PM EST Tom Freysa JS-7 Total Score 16 09/01/2024 4:37 PM EST Tom Freysa documented as of this encounter Plan of Treatment Not on file documented as of this encounter Visit Diagnoses Diagnosis Microcytic anemia Unspecified iron deficiency anemia documented in this encounter Additional Health Concerns Assessment Noted Time PHQ-9 Depression Total Score: 11 08/31/ 025 11:29 AM EST documented as of this encounter Care Teams Supervisor Transferring And Boxing Relationship Specialty Start Date End Date Rodney Ordonez MD [address] [place] [address] PCP - General Internal Medicine 01/25/19 Rubi Gibson, ANUP [address] [place] [address] Registered Nurse Family Medicine 11/28/24 02/13/25 Jerri More 11/28/24 02/13/25 Samantha Nava 03/28/25 03/29/25 Samantha Nava 05/04/25 05/09/25 Shahab Ricci Board AttendantSupervisor Blast Furnace Auxiliaries 07/12/24 Shahab Ricci Board AttendantSupervisor Blast Furnace Auxiliaries 12/29/24 documented as of this encounter
--- OUTSIDE RECORDS SUMMARY | 2025-06-13 07:23 | XMS_ITS | Encounter Summary ---
Author Organization [employer] Address [address] [facility] 7[address] [place] [address] Care Team Providers Care Satellite Dish Repairer Name Role Phone Rodney Ordonez MD Primary Care Provider [phone] Rubi Gibson RN Unavailable Unavailable Jerri More Unavailable Samantha Nava Unavailable Samantha Nava Unavailable Encounter Details Date Type Department Care Team (Late st Contact Info) Description 05/16/2024 Orders Only [facility] MED & PEDS [address] [place], [place] [phone] Provider, MD Jud Social History Tobacco Use [...] housing situation today? I have urban darci 08/19/[address] you li [...] on file documented as of this encounter Procedures Procedure [...] documented as of this encounter Care Teams Satellite Dish Repairer Relationship Specialty Start Date End Date Rodney Ordonez MD [address] [place] [address] PCP - General Internal Medicine 01/25/19 Rubi Gibson RN [address] [facility] [place] [address] Registered Nurse Family Medicine 11/28/24 02/13/25 Jerri More 11/28/24 02/13/25 Samantha Nava 03/28/25 03/29/25 Samantha Nava 05/04/25 05/09/25 Shahab Ricci Sericulture TeacherOffset Proof Press Operator 07/12/24 Shahab Ricci Sericulture TeacherOffset Proof Press Operator 12/29/24 documented as of this encounter
--- OUTSIDE RECORDS SUMMARY | 2025-06-13 07:23 | XMS_ITS | Encounter Summary ---
Author Organization [employer] Address [address] [place] [address] Care Team Providers Care Composition Weatherboard Applier Name Role Phone Rodney Ordonez MD Primary Care Provider [phone] Rubi Gibson RN Unavailable Unavailable Jerri More Unavailable Samantha Nava Unavailable Samantha Nava Unavailable Reason for Referral * Consultation (Routine) - Closed Specialty Diagnoses / Procedures Referred By Contluis fernando t Referred To Contact Neurology Diagnoses Chronic migraine without aura with status migrainosus, not intractable Rodney Ordonez MD [address] [place] [address] Phone: tel: fax: Salvador John MD [address] [place] [address] [place] [address] Phone: tel: fax: Referral ID Status Reason Start Date Expiration Date V isits Requested Visits Authorized [id number] Closed Specialty Services Required 02/17/2024 02/16/2025 1 1 Encounter Details Date Type Department Care Team (Late st Contact Info) Description 02/17/2024 Orders Only [facility] [address] [place], [place] [phone] Rodney Ordonez MD [address] [place] [address] Chronic migraine without aura with status migrainosus, [...] as of this encounter Plan of Treatment Scheduled Referrals Name Type Priority Associated Diagnoses [...] documented as of this encounter Care Teams Composition Weatherboard Applier Relationship Specialty Start Date End Date Rodney Ordonez MD [address] [place], [place] [phone] PCP - General Internal Medicine 01/25/19 Rubi Gibson RN [address] [place] [address] Registered Nurse Family Medicine 11/28/24 02/13/25 Jerri More 11/28/24 02/13/25 Samantha Nava 03/28/25 03/29/25 Samantha Nava 05/04/25 05/09/25 Shahab Ricci Ham Rolling Machine OperatorPlant Maintenance Worker 07/12/24 Shahab Ricci Ham Rolling Machine OperatorPlant Maintenance Worker 12/29/24 documented as of this encounter
--- OUTSIDE RECORDS SUMMARY | 2025-06-13 07:23 | XMS_ITS | Clinical Summary ---
Author Organization [facility] it Address [address] [place] [address] Care Team Providers Care Master Ship Name Role Phone Rodney Ordonez MD Primary Care Provider [phone] Surgical History Surgery Date Site/Laterality Comments TUBAL [...] on file Sexual Orientation Not on file Plan of Treatment Health Maintenance Due Date [...] age to complete this topic Care Teams Master Ship Relationship Specialty Start Date End Date Rodney Ordonez MD [address] [place] [address] PCP - General Internal Medicine 05/08/20
--- OUTSIDE RECORDS SUMMARY | 2025-06-13 07:23 | XMS_ITS | Encounter Summary ---
Author Organization [employer] Address [address] [place] [address] Care Team Providers Care Section Supervisor Name Role Phone Rodney Ordonez MD Primary Care Provider [phone] Rubi Gibson RN Unavailable Unavailable Jerri More Unavailable Samantha Nava Unavailable Samantha Nava Unavailable Reason for Visit * Reason Onset Date Comments Nurse Triage 04/05/2024 Encounter Details Date Type Department Care Team ([facility] st Contact Info) Description 04/05/2024 Telephone [facility] MED & PEDS [address] [place], [place] [phone] Rodney Ordonez MD [address] [place], [place] [phone] Nurse Triage Social History Tobacco Use Types [...] the past 12 months, has t he [employer], gas, oil or water company threatened to [...] 04/05/2024 12:11 PM EDT Triage call with [facility] Fermentologist [place] [id number] Pt reports a development of acne over face, cheeks, chest and back. Pt has not had this before. Pt reports itchiness that is severe at times. Pt reports white heads, black heads and red areas and they are big pimples . Pt is not applying anything to the area. Pt is texted handout regarding home care for mild acne in [place] and confirms receiving this. ASK apt with [...] becomes worse Acne (Romanian) handout sent to [phone] * Telephone Encounter - Kassy Smiley - 04/05/2024 11:28 AM EDT Symptom: Acne - Caller Reports Outcome: Schedule an appointment to be seen within 3 days Reason: Caller denied all higher acuity questions The caller accepted this outcome. documented in this encounter Plan of Treatment Not on file documented as of this encounter Visit Diagnoses Not on filedocumented in this encounter Additional Health Concerns Assessment Noted Time PHQ-9 Depression Total Score: 16 024 10:56 AM EST documented as of this encounter Care Teams Section Supervisor Relationship Specialty Start Date End Date Rodney Ordonez MD [address] [place] [address] PCP - General Internal Medicine 01/25/19 Rubi Gibson RN [address] [place] [address] Registered Nurse Family Medicine 11/28/24 02/13/25 Jerri More 11/28/24 02/13/25 Samantha Nava 03/28/25 03/29/25 Samantha Nava 05/04/25 05/09/25 Shahab Ricci Mobile Sales ExpertStore Stocker 07/12/24 Shahab Ricci Mobile Sales ExpertStore Stocker 12/29/24 documented as of this encounter
--- OUTSIDE RECORDS SUMMARY | 2025-06-13 07:23 | XMS_ITS | Encounter Summary ---
Author Organization [employer] Address 75 [facility] [address] [place] [address] Care Team Providers Care Golf Course Ranger Name Role Phone Rodney Ordonez MD Primary Care Provider [phone]- [phone] Rubi Gibson RN Unavailable Unavailable Jerri More Unavailable Samantha Nava Unavailable Samantha Nava Unavailable Encounter Details Date Type Department Care Team (Late st Contact Info) Description 09/17/2023 Telephone [facility] MEDICINE [address] [place] [address] Rodney Ordonez MD [address] [place] [address] Social History Tobacco Use Types Packs/Day Years [...] PM EDT TC placed to patient via [employer] Propeller Driven Airplane Mechanic x 2 regarding message below. Patient didn't answer. TCplaced to patient without tearer press clipping line. Patient answered. Explained message below in very basicSpanish, and patient still confused. Asked patient for permission to call back with tearer press clipping line and patient agreed. TC placed again to patient via [employer] Propeller Driven Airplane Mechanic. Explained message above and patient states she does have extremely painful periods and wants to consider hormonal treatment or next steps. Asked for next appointment at [facility] and scheduled for 09/29/23 @ 10:30am [...] original note were not included. [facility]: Unspecified (4 days ago, 11:50 AM) Rizatriptan sent to pt's pharmacy. Regarding the referral to Ophthalmology, Ms Cynthia Nuno can herself call an roving hand in the area to make her appointment herself, no referral isneeded from the office. TC placed to patient via [employer] Propeller Driven Airplane Mechanic regarding above message. Patient states that she didn't tow picker this medication from [facility] because she states she is allergic to this medication. Instead, she is taking Nurtec for migraines, which was prescribed by her neurologist. She was informed about the ophthalmology referral not being necessary, and she states she will try to make an appointment with the [facility]. Routing to PCP so he [...] documented as of this encounter Care Teams Golf Course Ranger Relationship Specialty Start Date End Date Rodney Ordonez MD [address] [place] [address] PCP - General Internal Medicine 01/25/19 Rubi Gibson RN [address] [place] [address] Registered Nurse Family Medicine 11/28/24 02/13/25 Jerri More 11/28/24 02/13/25 Samantha Nava 03/28/25 03/29/25 Samantha Nava 05/04/25 05/09/25 Shahab Ricci Camp Maintenance SupervisorRecycling Tech 07/12/24 Shahab Ricci Camp Maintenance SupervisorRecycling Tech 12/29/24 documented as of this encounter
--- OUTSIDE RECORDS SUMMARY | 2025-06-13 07:23 | XMS_ITS | Encounter Summary ---
Author Organization [employer] Address [address] [place] [address] Care Team Providers Care Medical Lab Assistant Name Role Phone Rodney Ordonez MD Primary Care Provider [phone]- [phone] Rubi Gibson RN Unavailable Unavailable Jerri More Unavailable Samantha Nava Unavailable Samantha Nava Unavailable Reason for Visit * Reason Onset Date Comments Lab Orders 12/05/2024 Encounter Details Date Type Department Care Team (Late st Contact Info) Description 12/05/2024 Telephone [facility] MEDICINE [address] [place] [address] Rodney Ordonez MD [address] [place], [place] [phone] Lab Orders Social History Tobacco Use Types [...] is your housing situation today? I have ubran bejarano 08/31/[address] you [...] documented as of this encounter Care Teams Medical Lab Assistant Relationship Specialty Start Date End Date Rodney Ordonez MD [address] [place] [address] PCP - General Internal Medicine 01/25/19 Rubi Gibson, ANUP [address] [place] [address] Registered Nurse Family Medicine 11/28/24 02/13/25 Jerri More 11/28/24 02/13/25 Samantha Nava 03/28/25 03/29/25 Samantha Nava 05/04/25 05/09/25 Shahab Ricci Appointment SpecialistIt Coordinator 07/12/24 Shahab Ricci Appointment SpecialistIt Coordinator 12/29/24 documented as of this encounter
--- OUTSIDE RECORDS SUMMARY | 2025-06-13 07:23 | XMS_ITS | Encounter Summary ---
Author Organization [employer] Address [address] [place] [address] Care Team Providers Care Atomizer Assembler Name Role Phone Rodney Ordonez MD Primary Care Provider [phone]- [phone] Rubi Gibson RN Unavailable Unavailable Jerri More Unavailable Samantha Nava Unavailable Samantha Nava Unavailable Encounter Details Date Type Department Care Team ([facility] st Contact Info) Description 09/07/2023 Orders Only [facility] MED & PEDS [address] [place], [place] [phone] Rodney Ordonez MD [address] [place], [place] [phone] H. pylori infection (Primary Dx) Social History [...] the past 12 months, has t he [employer], gas, oil or water [employer] threatened to shut off services in your [...] documented as of this encounter Care Teams Atomizer Assembler Relationship Specialty Start Date End Date Rodney Ordonez MD [address] [place] [address] PCP - General Internal Medicine 01/25/19 Rubi Gibson RN [address] [place] [address] Registered Nurse Family Medicine 11/28/24 02/13/25 Jerri More 11/28/24 02/13/25 Samantha Nava 03/28/25 03/29/25 Samantha Nava 05/04/25 05/09/25 Shahab Ricci Die PresserApprentice Architect 07/12/24 Shahab Ricci Die PresserApprentice Architect 12/29/24 documented as of this encounter
--- OUTSIDE RECORDS SUMMARY | 2025-06-13 07:23 | XMS_ITS | Encounter Summary ---
Author Organization [employer] Address [address] [place] [address] [place] [address] Care Team Providers Care Server Software Engineer Name Role Phone Rodney Ordonez MD Primary Care Provider [phone]- [phone] Rubi Gibson RN Unavailable Unavailable Jerri More Unavailable Samantha Nava Unavailable Samantha Nava Unavailable Encounter Details Date Type Department Care Team ([facility] st Contact Info) Description 06/10/2024 Orders Only [facility] MED & PEDS [address] [place], [place] [phone] Rodney Ordonez MD [address] [place], [place] [phone] Neck muscle spasm (Primary Dx) Social History [...] documented as of this encounter Care Teams Server Software Engineer Relationship Specialty Start Date End Date Rodney Ordonez MD [address] [place] [address] PCP - General Internal Medicine 01/25/19 Rubi Gibson RN [address] [place] [address] Registered Nurse Family Medicine 11/28/24 02/13/25 Jerri More 11/28/24 02/13/25 Samantha Nava 03/28/25 03/29/25 Samantha Nava 05/04/25 05/09/25 Shahab Ricci Crew Team MemberAutomotive Service Technician 07/12/24 Shahab Ricci Crew Team MemberAutomotive Service Technician 12/29/24 documented as of this encounter
--- OUTSIDE RECORDS SUMMARY | 2025-06-13 07:23 | XMS_ITS | Encounter Summary ---
Author Organization [employer] Address [address] [place] [address] Care Team Providers Care Blind Teacher Name Role Phone Rodney Ordonez MD Primary Care Provider [phone]- [phone] Rubi Gibson RN Unavailable Unavailable Jerri More Unavailable Samantha Nava Unavailable Samantha Nava Unavailable Reason for Visit * Reason Onset Date Comments ER Follow-up 12/29/2023 Encounter Details Date Type Department Care Team (Late st Contact Info) Description 12/29/[address] [facility] MEDICINE [address] [place] [address] Rodney Ordonez MD [address] [place], [place] [phone] ER Follow-up Social History Tobacco Use Types [...] the past 12 months, has t he [employer], gas, oil or water company threatened to [...] 9:30 AM EDT Tc to pt using [facility] [employer] [place] [id number] for ED follow-up. Pt repports feeling better, [...] ED visit on : Date: 12/27 Hospital: [facility] Seen for: High Blood Pressure , [...] documented as of this encounter Care Teams Blind Teacher Relationship Specialty Start Date End Date Rodney Ordonez MD [address] [place], [place] [phone] PCP - General Internal Medicine 01/25/19 Rubi Gibson RN [address] [place] [address] Registered Nurse Family Medicine 11/28/24 02/13/25 Jerri More 11/28/24 02/13/25 Samantha Nava 03/28/25 03/29/25 Samantha Nava 05/04/25 05/09/25 Shahab Ricci Sterilizer Machine OperatorCall Worker Person 07/12/24 Shahab Ricci Sterilizer Machine OperatorCall Worker Person 12/29/24 documented as of this encounter
--- OUTSIDE RECORDS SUMMARY | 2025-06-13 07:23 | XMS_ITS | Encounter Summary ---
Author Organization [employer] Address [address] [place] [address] [place], [place] [address] Care Team Providers Care Care Specialist Name Role Phone Rodney Ordonez MD Primary Care Provider [phone]- [phone] Rubi Gibson RN Unavailable Unavailable Jerri More Unavailable Samantha Nava Unavailable Samantha Nava Unavailable Reason for Visit * Reason Onset Date Comments Referral 09/03/2023 Encounter Details Date Type Department Care Team (Late st Contact Info) Description 09/03/2023 Telephone [facility] MEDICINE [address] [place] [address] Rodney Ordonez MD [address] [place], [place] [phone] Referral Social History Tobacco Use Types Packs/Day [...] the past 12 months, has t he [employer], gas, oil or water [employer] threatened to shut off services in your [...] regards to pt requesting a referral for database architect. Ptwas advised after ED visit 08/31/23 from [facility] to be seen with database architect due to being diagnosed with Anemia. Please contact pt at [phone] If any questions you can contact Shahab at [phone]. documented in this encounter Plan of Treatment Not on file documented as of this encounter Visit Diagnoses Not on filedocumented in this encounter Additional Health Concerns Assessment Noted Time PHQ-9 Depression Total Score: 16 024 10:56 AM EST documented as of this encounter Care Teams Care Specialist Relationship Specialty Start Date End Date Rodney Ordonez MD [address] [place], [place] [phone] PCP - General Internal Medicine 01/25/19 Rubi Gibson RN [address] [place] [address] Registered Nurse Family Medicine 11/28/24 02/13/25 Jerri More 11/28/24 02/13/25 Samantha Nava 03/28/25 03/29/25 Samantha Nava 05/04/25 05/09/25 Shahab Ricci Point Of Care TechnicianTelesales Manager 07/12/24 Shahab Ricci Point Of Care TechnicianTelesales Manager 12/29/24 documented as of this encounter
--- OUTSIDE RECORDS SUMMARY | 2025-06-13 07:23 | XMS_ITS | Clinical Summary ---
Author Organization [employer] Address [address] [place] [address] 7 [place] [address] Care Team Providers Care Prepper Name Role Phone Rodney Ordonez MD Primary Care Provider +1- [phone] Allergies Active Allergy Reactions Criticality Noted Date Comments Ethanol Anaphylaxis High 02/27/2021 Ibuprofen Hives High 07/11/2022 Other 03/02/2025 Quetiapine Other High 09/13/2018 As per patient Seizures, head aches loss of memorie. Rizatriptan 03/02/2025 Itchy throat Shellfish Allergy 03/02/2025 Shellfish Protein-Containing Drug Products 08/05/2022 Sumatriptan 03/02/2025 Topiramate 03/02/2018 Caused itching both [...] 911 2 each 3 11/07/19 23 Active Additional Information Patient not taking.Reported on 03/28/2025 albuterol (ProAir HFA) 108 (90 Base) MCG/ACT inhalerIndicatio ns:Moderate persistent asthma without complication Inhale 2 puffs every 6 (six) hours. 18 g 03/20/20 23 Active albuterol (2.5 MG/3ML) 0.083% nebulizer solutionIndicati ons:Moderate persistent asthma without complication Take 3 mL (2.5 mg) by nebulization every 6 (six) hours if needed for wheezing. 75 mL 03/20/20 23 Active Additional Information Patient not taking.Reported on 03/28/2025 predniSONE (Deltasone) 20 MG tablet 06/08/20 23 Active rizatriptan (Maxalt) 10 MG tablet 11/05/19 23 Active Omeprazole 20 MG tablet delayed-releaseI ndications:H. pylori infection Take 20 mg by mouth in the morning. 14 tablet 09/07/19 24 Active buPROPion XL (Wellbutrin XL) 150 MG 24 hr tablet Take 150 mg by mouth in the morning. 09/22/19 24 Active tiZANidine (Zanaflex) 2 MG tabletIndication s:Neck muscle spasm Take 1 tablet (2 mg) by mouth every 6 (six) hours if needed for muscle spasms for up to 10 days. 30 tablet 06/10/20 24 Active Sodium Fluoride 1.1 % cream Warren teeth for 2 minutes, morning and night. Spit, do not rinse. Do not eat or drink anything for 30 minutes following use. 112 g 3 07/27/19 25 Active ferrous sulfate (Fe Tabs) 325 (65 Fe) MG EC tabletIndication s:Microcytic anemia Take 1 tablet (325 mg) by mouth with breakfast. Do not crush, chew, or split. 90 tablet 2 09/02/19 25 026 Active cetirizine (ZyrTEC) 10 MG tablet Take 1 tablet by mouth in the morning. 04/18/20 21 Active clarithromycin (Biaxin) 250 MG tablet Take 250 mg by mouth. 09/09/19 24 Active diazePAM (Valium) 5 MG tablet TAKE 1 TABLET BY MOUTH THREE TIMES DAILY FOR 5 DAYS NEEDED FOR MODERATE PAIN 05/05/20 24 Active Voltaren 1 % gel Apply topically. 0 25 Active Banophen 25 MG tablet take 3 tablets by mouth every night at bedtime 02/29/20 25 Active docusate sodium (Colace) 100 MG capsule Take 1 capsule by mouth 2 times daily. 12/06/19 25 Active famotidine (Pepcid) 20 MG tablet Take 1 tablet by mouth Once per day. 09/04/19 25 Active FEXOFENADINE HCL PO Take by mouth. 09/09/19 24 Active fluticasone (Flonase Allergy Relief) 50 MCG/ACT nasal spray Administer 1-2 sprays into affected nostril(s) at bed time. 04/18/20 21 Active fluticasone (Flonase) 50 MCG/ACT nasal spray Administer into affected nostril(s). 11/21/19 16 Active ibuprofen 600 MG tablet Take 1 tablet by mouth every 12 (twelve) hours. 07/16/19 22 Active ibuprofen 800 MG tablet take 1 tablet once a day as needed for migraine ( do not exceed 3 tabs in a week ) 04/18/20 22 Active ipratropium-albu terol (Duo-Neb) 0.5-2.5 mg/3 mL nebulizer solution Inhale 3 mL every 6 (six) hours. 02/24/20 21 Active lidocaine (Xylocaine) 5 % ointment APPLY TOPICALLY TO THE AFFECTED AREA THREE TIMES DAILY FOR 10 DAYS 09/04/19 25 Active acetaminophen (Tylenol) 325 MG tabletIndication s:Fever, unspecified fever cause,Chronic sinusitis, unspecified location Take 1 tablet (325 mg) by mouth every 6 (six) hours. 30 tablet 03/02/20 25 Active diphenhydrAMINE (Benadryl Allergy) 25 MG capsuleIndicatio ns:Chronic sinusitis, unspecified location Take 1 capsule (25 mg) by mouth if needed at bedtime for itching. 30 capsule 3 03/02/20 25 Active ferrous sulfate 325 (65 Fe) MG EC tabletIndication s:Microcytic anemia,Menorrhag ia with regular cycle Take 1 tab orally twice a day 60 tablet 2 03/07/20 25 Active Diclofenac Sodium 1 % gelIndications:N umbness and tingling in right hand,Chronic pain of right hand Apply topically to affected areas twice daily 150 g 1 03/20/20 25 Active cholecalciferol (Vitamin D-3) 25 MCG (1000 UT) tabletIndication s:Vitamin D deficiency Take 1 tablet (25 mcg) by mouth Once per day. 30 tablet 2 03/07/20 25 025 Active Problems Problem Noted Date Diagnosed Date Class 1 obesity 03/02/2025 Moderate major depression (CMS/HCC) 09/01/2024 JS (generalized anxiety disorder) 09/01/2024 Mood [...] told to avoid NSAID/Aspirin until evaluated by regional forester. Will provide epipen. Hospital discharge follow-up 07/11/2022 Moderate persistent asthma 10/24/2021 Vitamin D deficiency 10/24/2021 Migraine 03/16/2019 Mild persistent asthma with allergic rhinitis Overview (10/09/2023): As per [facility] medical records Encounters Date Type Department Care Team Description 05/23/2025 Telephone [facility] MEDICINE [address] [place] [phone] Rodney Ordonez MD Results 05/09/2025 Patient Outreach [facility] [address] [place] [address] Rodney Ordonez MD Care Coordination (Communication to pts assigned CP Coordinator ) 05/04/2025 Patient Outreach [facility] [address] [place] [address] Rodney Ordonez MD Care Coordination (CP Care Coordination Chart Review) 05/04/2025 Patient Outreach [facility] [address] [place] [address] Rodney Ordonez MD Care Coordination ([facility] ED Follow up) 05/04/2025 Patient Outreach [address] [address] Rodney Ordonez MD 03/30/2025 Telephone [facility] [address] [place] [address] Rodney Ordonez MD ER Follow-up 03/29/2025 Patient Outreach [facility] [address] [place] [address] Rodney Ordonez MD Care Coordination (Communication to pts assigned CP Coordinator) 03/28/2025 Patient Outreach [facility] [address] [place] [address] Rodney Ordonez MD Care Coordination ([facility] ED Follow Up) 03/28/2025 Patient Outreach [facility] [address] [place] [address] Rodney Ordonez MD Care Coordination (CP Care Coordination Chart Review) 03/28/2025 Patient Outreach [facility] [address] [place] [address] Rodney Ordonez MD 03/20/2025 11:30 AM EDT Office Visit [facility] [address] [place] [address] Tr, Radha, ASSURANCE AUDITOR Numbness and tingling in right hand (Primary Dx); Chronic pain of right hand 03/20/2025 Travel 03/17/2025 Telephone [facility] [address] [place] [address] Rodney Ordonez MD Nurse Triage from Last 3 Months Immunizations Immunization Administration [...] Sign Reading Time Taken Comments Blood Pressure 100/60 03/20/2025 11:36 AM EDT Pulse 88 03/20/2025 11:36 AM EDT Temperature 36.9 C (98.5 F) 03/20/2025 11:36 AM EDT Respiratory Rate 20 03/20/2025 11:36 AM EDT Oxygen Saturation 99% 03/02/2025 2:32 PM EDT Inhaled Oxygen Concentration - - Weight 79.4 kg (175 lb) 03/20/2025 11:36 AM EDT Height 149.9 cm (4' 11 ) 03/02/2025 2:32 PM EDT Body Mass Index 35.35 03/02/2025 2:32 PM EDT Plan of Treatment Health Maintenance Due Date Last Done Comments HPV Vaccines (1 - 3-dose series) 2005 Hepatitis B Vaccines (3 of 3 - 19+ 3-dose series) 10/26/2016 05/28/2016, 04/28/2016 COVID-19 Vaccine (4 - 2024- season) 2025 05/05/2024, 11/27/2020, 11/06/2020 Influenza Vaccine (#1) 2025 , 03/27/2020, 05/24/2019, Additional history exists Depression Monitoring 03/04/2025 09/01/2024, 025 Dental Oral Exam 03/23/2025 09/19/2024 Dental Prophylaxis 03/23/2025 09/19/2024 Dental X-Ray: Bitewings 05/14/2025 05/13/2024 Family Planning (PISQ) 07/04/2025 07/04/2024 Alcohol/Substance Use Screening 08/31/2025 08/31/2024 SDOH Screening 08/31/2025 08/31/2024 Disability Screening 03/02/2026 03/02/2025 Tobacco Screening 03/21/2026 03/21/2025 Dental X-Ray: Full Mouth 05/14/2027 05/13/2024, 04/02/2024 Cervical Cancer Screening 08/05/2027 HPV/Cotest 08/05/2027 08/05/2022 [...] (6 to 49) Years Completed 08/26/2023, 04/14/2016 HIV Screening Completed 07/04/2024, 08/26/2023 HIB Vaccines [...] Procedure Name Priority Date/Time Associated Diagnosis Comments PROPHYLAXIS - ADULT Routine 09/19/2024 9 :00 [...] Recently Relevant to Health Maintenance Results * HIV-1/2 Antigen and Antibodies, Fourth Generation, with Reflexes (07/04/2024 10:05 AM EST) HIV AB/AG Nonreactive Nonreactive [facility] Comment:HIV-1 p24 Ag and/or HIV-1/HIV-2 Ab not detected.A test result that is nonreactive does not exclude thepossibility of exposure to or infection with HIV-1 and/orHIV-2. Nonreactive results in this assay for individualswith prior exposure to HIV-1 and/or HIV-2 may be due toantigen and antibody levels that are below the limit ofdetection of this assay.The [employer] HIV Ag/Ab Combo assay result andsupplemental assay results should be interpreted inconjunction with the patient's clinical presentation,history and other laboratory results. If the results areinconsistent with clinical evidence, additional testing issuggested to confirm the result. Blood Venous blood specimen / Unknown 07/04/2024 10:05 AM EST 07/04/2024 11:02 AM EST Alla LIN LAB BLOOD ORDERABLES Shea l Result Performing Organization Address [facility] Co de Phone Number [facility] [address] [place] [phone] * Hepatitis C Antibody with Reflex to HCV, RNA, Quantitative, Real-Time PCR (08/26/2023 11:57 AM EST) Hepatitis C Antibody Nonreactive Nonreactive [facility] Comment:Antibodies to HCV no t detected; does not exclude early acuteHCV infection. Blood Venous blood specimen / Unknown 08/26/2023 11:57 AM EST 08/26/2023 2:41 PM EST Rodney Ordonez MD LAB BLOOD ORDERABLES Final Result Performing Organization Address [facility] de Phone Number [facility] [address] [place] [phone] * Thinprep TIS PAP And HPV mRNA E6/E7, CT/NG, TRICH (08/05/2022 12:00 AM EST) Clinical Information: RTN SCREEN [facility] LMP: NONE GIVEN [facility] Prev. PAP: NONE GIVEN [facility] Prev. BX: NONE GIVEN [facility] SOURCE: None given [facility] Statement Of Adequacy: [facility] Comment: Satisfactory for evaluation. Endocervical/transformation zone component present. Interpretation/Re sult: Negative for intraepithelial lesion or malignancy. [facility] Comment: This Pap test has been evaluated with computer assisted technology. [facility] [place] Production Estimator: [facility] Comment: WENDY KUMARI(ASCP) CT screening location: [facility], [address] [place] [address], [place] [address] Slide preparation performed at: [email or web address] [facility], [address] [place] [phone] CLIA No. [id number] (Always Message) [facility] Comment: EXPLANATORY NOTE: The Pap [...] HPV nRNA E6/E7 Not Detected Not Detected [facility] Comment: Methodology: Resource Efficiency Manager-Mediated Amplification This assay detects E6/E7 viral messenger RNA (mRNA) from 14 high-risk HPV types (16,18,31,33,35,39,45,51,52,56,58,59,66,68). Cervical sources are required for HPV testing. If a vaginal source from a patient who has had a total hysterectomy with removal of cervix was submitted, please contact the testing laboratory for alternative testing options. For additional information, please refer to http://[employer].Localist/faq/FXL395h1 (This link if provided for information/ educational purposes only.) Chlamydia trachomatis RNA, TMA, Urogenital NOT DETECTED NOT DETECTED [facility] Neisseria gonorrhoeae RNA, TMA, Urogenital NOT DETECTED NOT DETECTED [facility] Comment [facility] Comment: The analytical performance characteristics of this assay, when used to test SurePath(TM) specimens have been determined by [facility]. The modifications have not been cleared or approved by the FDA. This assay has been validated pursuant to the CLIA regulations and is used for clinical purposes. For additional information, please refer to https://[employer].Localist/faq/KJB596 (This link is being provided for information/ educational purposes only.) Trichomonas vaginalis, QL, TMA, PAP Vial NOT DETECTED NOT DETECTED [facility] Comment: The analytical performance characteristics of this assay have been determined by [facility]. The modifications have not been cleared or approved by the FDA. This assay has been validated pursuant to the CLIA regulations and is used for clinical purposes. For additional information, please refer to http://education.[employer]/ faq/Trichomonastma (This link is being provided for information/ educational purposes only.) 08/05/2022 08/06/2022 9:3 1 AM EST Narrative [facility] - 08/13/2022 9:22 AM EST FASTING: UNKNOWN Alla Ng CNM LAB PATHOLOGY ORDERABLES Final Result [facility] [address], [place] [address] [facility], [address] [place] [phone] [facility] [address] [facility], ([address]) [place] [phone] from Last 3 Months or Most Recently Relevant to Health Maintenance Insurance [facility] C3 C3 DENTAL-[facility] MEDICAID STAND ADULT [employer] [facility] [place] [address] GENERIC WORKERS[employer] * Guarantor: Cynthia Nuno Account Type Relation to Patient Date of Phone Billing Address Personal/Family Self [facility] [place] [address] * Guarantor: Cynthia Nuno Account Type Relation to Patient Date of Phone Billing Address Personal/Family Self [facility] [place] [address] * Guarantor: Cynthia Nuno Account Type Relation to Patient Date of Phone Billing Address Personal/Family Self [facility] [place] [address] Care Teams Prepper Relationship Specialty Start Date End Date Rodney Ordonez MD [address] [place] [address] PCP - General Internal Medicine 01/25/19 Shahab Ricci Tread BuilderShearer Helper 07/12/24 Shahab Ricci Tread BuilderShearer Helper 12/29/24
--- OUTSIDE RECORDS SUMMARY | 2025-06-13 07:23 | XMS_ITS | Encounter Summary ---
Author Organization [employer] Address [address] [place] [address] Care Team Providers Care Head Cleaning Porter Name Role Phone Rodney Ordonez MD Primary Care Provider +1- [phone] Rubi Gibson RN Unavailable Unavailable Jerri More Unavailable Samantha Nava Unavailable Samantha Nava Unavailable Encounter Details Date Type Department Care Team ([facility] st Contact Info) Description 09/22/2022 [facility] [address] [place], [place] [phone] Rodney Ordonez MD [address] [place], [place] [phone] Social History Tobacco Use Types Packs/Day Years [...] documented as of this encounter Care Teams Head Cleaning Porter Relationship Specialty Start Date End Date Rodney Ordonez MD [address] [place] [address] PCP - General Internal Medicine 01/25/19 Rubi Gibson RN [address] [place] [address] Registered Nurse Family Medicine 11/28/24 02/13/25 Jerri More 11/28/24 02/13/25 Samantha Nava 03/28/25 03/29/25 Samantha Nava 05/04/25 05/09/25 Shahab Ricci Superintendent [employer] Guard Gate 07/12/24 Shahab Ricci Superintendent [employer] Guard Gate 12/29/24 documented as of this encounter
--- NOTE | 2025-06-13 07:32 | A.OFFVIS_ITS ---
Vital Signs 06/13/25 07:46 Height 4 ft 11 in Weight 168 lb BMI 33.9 BP 98/60 Blood Pressure Location Lt brachial Position Sitting Respiration 16 Pulse 87 Pulse Source Pulse Oximeter Pulse Oximetry (%) 97 Oxygen Delivery Method Room Air Intake Visit Reasons: BOTOX 200 Stabilizing Machine Operator Required: Yes Stabilizing Machine Operator Services: Stabilizing Machine Operator Present Stabilizing Machine Operator Name: Liliana ID [id number] Information Interpreted: non-clinical & clinical Allergies ibuprofen Allergy (Severe, Verified 06/13/25 07:55) Anaphylaxis sumatriptan Allergy (Intermediate, Verified 06/13/25 07:55) Difficulty Breathing HPI Comments Details: Cynthia is a 34-year-old female patient with a past medical history chronic migraine here today for Botox therapy. She has been receiving Botox therapy for many years previously with Dr. Husain and more recently with Dr. John. She tells me that prior to initiation of Botox therapy, she was experiencing near daily headaches but with initiation of Botox therapy, she has had excellent control with only a few breakthrough migraines during the 1st couple of months of treatment. After a proximally 8 weeks however she does start to experience some wear off effect and can have migraines for about a week at a time with an average of 14 migraine days per month during that last month. She does use Nurtec for abortive therapy however it often only provides partial relief and sometimes has a rebound effect. If her migraine is intense and continues, she drinks a Frappe from [employer] which helps to relieve her pain sometimes at least to a partial benefit. Past medication trials have included: Bupropion-no significant benefit Topiramate-no significant benefit Valproate-no significant benefit Tricyclic antidepressants-hives Sumatriptan-difficulty breathing [facility] Medical History (Updated 06/13/25 @ 08:02 by Rubi Hess CNP) Migraine Review of Systems Const All systems reviewed & are unremarkable except as noted in HPI and below Physical Exam Vital Signs: Last Vital Signs Pulse 87 06/13/25 07:46 Resp 16 06/13/25 07:46 BP 98/60 06/13/25 07:46 Pulse Ox 97 06/13/25 07:46 Oxygen Delivery Method Room Air 06/13/25 07:46 BMI result Body Mass Index 33.9 Const General: cooperative, healthy appearing, comfortable and no acute distress Nutritional Appearance: well nourished Orientation/consciousness: patient oriented x3 Limitations: no limitations HEENT Head: Yes normal to inspection and Yes normocephalic Eyes General: appearance normal, both eyes and all related structures Visual Holbrook: normal visual holbrook by confrontation Alignment and Position: alignment normal Periorbital: periorbital findings normal Eyelids: Yes eyelids normal Conjunctivae: conjunctivae normal Sclerae: sclerae normal Direct Ophthalmoscopy: normal light reflex Neck Neck: Yes normal visual inspection and Yes full ROM General: Yes no CVA tenderness Back/Spine/Pelvis Back: no CVA tenderness Cervical Spine: normal cervical lordosis Thoracic/Lumbar Spine: thoracic and lumbar spine normal to inspection Neuro General: patient oriented x3 Cranial nerves: Yes CN's II-XII intact bilaterally and Yes Facial sensation intact/muscles of mastication intact Cognition (Neuro): normal cognition Gait exam (Neuro): Normal gait present Motor exam (neuro): no tremor noted Sensory Exam: double simultaneous stimulation for sensation normal Romberg Test: Negative Pupils: Normal pupillary reactivity/response: bilateral Psych Appearance: grossly normal Mental Status: mental status grossly normal Speech and movement: Normal speech and movement present and Clear speech present Affect: normal affect Attitude: cooperative Thought process: Normal thought process present Thought content: Normal thought content present Insight: Good insight present (Psych) Judgement: Good judgement present (Psych) Office Procedures Botulinum toxin Injection Details: Procedure: Botox therapy for Chronic Migraine Laterally: Bilateral Indications: Chronic Migraine Medications: Botox 155units How the med was supplied: Patient supplied Timeout performed before procedure, patient identified with full name and date of . Risks and benefits of procedure reviewed, as well as site verified, sonsent signed, allergies reviewed, and medication reconsilliatino reviewed/completed. Following universal hygiene protocol and PREEMPT protocol, Botox 200unit vial was reconstituted with 4cc normal saline for a final concentration of 5units/0.1cc. The areas of injection were cleansed with alcohol. A 30g 0.5 needle was used to administer the injections as below. Procerus: 5units midline Roller Leveler Operator: 5units left and 5units right Frontalis: 10units left and 10units right Temporalis: 20units left and 20units right Occipitalis:15units left and 15units right Cervical paraspinal 10units left and 10units right Trapezius 15units left and 15units right No noted paresthesias during injection 155units of Botox used and 45units wasted per PREEMPT protocol Complications: None Patient was observed for 15 minutes after the procedure and discharged home with instructions to apply ice to their head as needed. 83846 - Migraine Procedure code (CPT) selection complete [place] [facility] [place]: [place] bill[place] procedure: Procedure: Nerivio neuromodulation device Benefits and risks reviewed with the patient prior to initiation of this therapy (risks including risk for allergic reaction to adhesive,and slight site discomfort). Patient agreed to proceed with neuromodulation. Nerivio device applied to patient's left arm a proximally 10 minutes prior to starting her Botox treatment. The treatment was increased to a level of 25% prior to her treatment and remained in place during her procedure and for 10 minutes after her procedure. The Nerivio device was in place at 25% for approximately 35 minutes. There were no complications during this procedure and her pain was a 5/10 after her treatment. Office Meds onabotulinumtoxinA 200 unit solution for injection Performing Provider: Rubi Hess CNP Performing Location: [facility] [place] [facility] Administered by: Rubi Hess CNP on 06/13/25 08:03 Dose Route Admin Location Dispensed Lot Number Expiration Date [facility] Quality Intern 155 unit IM 200 units [id number] 09/27/27 7586-1614-63 [employer] AN/BOTOX Total Dispensed Waste 200 units 22.5 % Assessment & Plan Assessment & Plan (1) Chronic migraine without aura without status migrainosus, not intractable: Code(s): G43.709 - Chronic migraine without aura, not intractable, without status migrainosus Category: Medical Plan Cynthia is a 34-year-old female patient with a past medical history chronic migraine here today for Botox therapy. The procedure was well tolerated and the Nerivio device was used during the procedure which she found to be very helpful to minimize the pain of the procedure. She also reported that prior to Botox s he was having a 9/10 headache and after the procedure her pain was 5/10. She will continue to use Nurtec as needed and I will see her again in 12 weeks for repeat Botox therapy Orders: Orders AMB Botulinum toxin Injection - Patient Supplied N/C Today G43.709 - Chronic migraine without aura, not intractable, without status migrainosus Coding Level of Care Code Est Pt Level 3 (05825) Diagnoses Chronic migraine without aura without status migrainosus, not intractable G43.709 CPT Codes Botox Injection - Botox 3: 71689 - Migraine ([id number])
[2025-06-13 07:46] VITALS: BP 98/60; PULSE 87; RESP 16; O2SAT 97; BMI 33.9
== END 2025-06-13 08:09 | disposition home or self-care (01) ==
LOC: HO.HSM 07:21
PROVIDERS: PCP Internal Medicine; Visit Provider Nurse Practitioner
DX: G43.709 Chronic migraine without aura, not intractable, without status migrainosus (principal)
CPT/HCPCS: 64615; 99213

== ENCOUNTER → 2025-06-13 07:21 | Outpatient (BNVA) | payer OTHER, MEDICAID, SELFPAY | PROVIDERS: PCP Internal Medicine; Visit Provider Nurse Practitioner | DX: G43.709 Chronic migraine without aura, not intractable, without status migrainosus (principal) | CPT/HCPCS: 64615; J0585 ==